=== PATIENT | female | born 1955 | race Two or more races ===

== ENCOUNTER 2020-01-02 07:37 | Outpatient (REF) | payer OTHER, SELFPAY ==
[2020-01-02 09:16] LABS: MANUAL DIFF FLAG NO
[2020-01-02 09:30] LABS: Estimated Average Glucose 91 mg/dL; Hemoglobin A1c % 4.8 %
[2020-01-02 09:35] LABS: Basophils Percent Auto 0.7 % (0-2); Eosinophils Absolute Auto 0.1 X10*3/uL (0.0-0.4); Eosinophils Percent Auto 1.5 % (0-4); Hematocrit 39.5 % (37-47); Hemoglobin 13.5 g/dl (12.0-16.0); Imm Gran Abs Auto 0.01 X10*3/uL (0.00-0.03); Imm Gran Pct Auto 0.2 % (0.0-0.4); Lymphocytes Absolute Auto 1.7 X10*3/uL (1.2-4.9); Lymphocytes Percent Auto 41.1 % (20-40); Mean Corpuscular HGB Conc 34.2 g/dl (31.0-35.0); Mean Corpuscular Hemoglobin 30.2 pg (27.0-33.0); Mean Corpuscular Volume 88.4 fL (80-98); Mean Platelet Volume 10.5 fL (9.4-12.3); Monocytes Absolute Auto 0.4 X10*3/uL (0.1-1.2); Monocytes Percent Auto 8.8 % (2-11); Neutrophils Percent Auto 47.7 % (45-73); Platelet Count 269 X10*3/uL (160-400); Red Blood Count 4.47 X10*6/uL (4.20-5.50); Red Cell Distribution Width 11.9 % (11.0-16.0); White Blood Count 4.1 X10*3/uL (4.8-10.8)
[2020-01-02 09:38] LABS: Alanine Aminotransferase 15 U/L (0-31); Albumin Level 4.3 g/dL (3.5-5.0); Alkaline Phosphatase 113 U/L (39-117); Anion Gap 13 (12-20); Aspartate Amino Transferase 15 U/L (5-31); Bilirubin Total 0.5 mg/dL (0.0-1.0); Blood Urea Nitrogen 12 mg/dL (9-16); Calcium 9.3 mg/dL (8.4-10.2); Carbon Dioxide 29 mmol/L (22-29); Chloride 100 mmol/L (96-108); Cholesterol 166 mg/dL; Estimated Glomerular Filt Rate > 60; Glucose Fasting 107 mg/dL (60-99); HDL Cholesterol 57 mg/dL; LDL Cholesterol Calculated 72 mg/dl; Magnesium 1.9 mg/dL (1.6-2.6); Potassium 4.5 mmol/l (3.3-5.1); Sodium 137 mmol/L (135-145); Total Protein 7.2 g/dL (6.5-8.0); Triglycerides 187 mg/dL
[2020-01-02 09:43] LABS: Glucose Urine UA NEG (NEG); Leukocyte Esterase Urine TRACE (NEG); Nitrite Urine NEG (NEG); PH 6.5 (5.0-8.0); Urine Blood NEG (NEG); Urine Ketones NEG (NEG); Urine Protein NEG (NEG-TRACE)
[2020-01-02 09:47] LABS: Appearance Urine HAZY; Color Urine YELLOW
[2020-01-02 09:48] LABS: TSH reflex Free T4 1.97 mIU/mL (0.32-4.0)
[2020-01-02 10:49] LABS: Bacteria Urine 1+ /LPF; RBC Urine 0 /HPF (0); Squamous Epithelial Cell Urine 2+ /LPF; WBC Urine 0-2 /HPF (0-4)
== END 2020-01-02 07:38 | disposition home or self-care (01) ==
LOC: HO.LAB 07:37
PROVIDERS: Visit Provider Internal Medicine
DX: E78.5 Hyperlipidemia, unspecified (principal); I10 Essential (primary) hypertension; R73.01 Impaired fasting glucose; E87.6 Hypokalemia; E83.42 Hypomagnesemia; K29.70 Gastritis, unspecified, without bleeding; R25.2 Cramp and spasm; E66.9 Obesity, unspecified
CPT/HCPCS: 36415; 80053; 80061; 81001; 83036; 83735; 84443; 85025; 87086

== ENCOUNTER 2020-01-18 13:09 | Outpatient (REF) | payer OTHER, SELFPAY ==
--- NOTE | 2020-01-18 13:13 | MM_ITS ---
EXAMINATION: MM SCREENING DIGITAL BREAST TOMOSYNTHESIS, BILATERAL CLINICAL INFORMATION: Screening. Asymptomatic. The lifetime risk of breast cancer based on the Tyrer-Cuzick Model is 4%. COMPARISON: Mammography: 01/22/2019, 01/12/2019, 01/09/2018, 12/15/2016 TECHNIQUE: Digital breast tomosynthesis is performed in both the craniocaudal and mediolateral oblique views along with computer-aided detection (CAD). Synthesized 2D images are generated from the tomosynthesis. FINDINGS: There are scattered areas of fibroglandular density (ACR BI-RADS breast composition Category b). There are no significant masses, abnormal calcifications, or other abnormalities. No developing density. Parenchymal pattern is similar to prior studies. The axilla and skin contours are unremarkable. MM/MM tomosynthesis screening BI IMPRESSION: No mammographic evidence of malignancy. ASSESSMENT: BI-RADS 1: Negative RECOMMENDATION: Routine annual mammography screening. This patient's information was entered into a reminder system with a target due date for their next mammogram.
== END 2020-01-18 13:10 | disposition home or self-care (01) ==
LOC: HO.MAMMO 13:09
PROVIDERS: PCP Internal Medicine; Visit Provider Internal Medicine
DX: Z12.31 Encounter for screening mammogram for malignant neoplasm of breast (principal)
CPT/HCPCS: 77063; 77067

== ENCOUNTER 2020-04-01 08:28 | Outpatient (REF) | payer OTHER, SELFPAY ==
[2020-04-01 09:18] LABS: MANUAL DIFF FLAG NO
[2020-04-01 09:25] LABS: Glucose Urine UA NEG (NEG); Leukocyte Esterase Urine NEG (NEG); Nitrite Urine NEG (NEG); Urine Blood NEG (NEG); Urine Ketones NEG (NEG); Urine Protein NEG (NEG-TRACE)
[2020-04-01 09:26] LABS: Appearance Urine CLEAR; Basophils Absolute Auto 0.1 X10*3/uL (0.0-0.2); Basophils Percent Auto 1.1 % (0-2); Color Urine YELLOW; Eosinophils Absolute Auto 0.1 X10*3/uL (0.0-0.4); Eosinophils Percent Auto 2.1 % (0-4); Hematocrit 40.3 % (37-47); Hemoglobin 13.8 g/dl (12.0-16.0); Imm Gran Abs Auto 0.01 X10*3/uL (0.00-0.03); Imm Gran Pct Auto 0.2 % (0.0-0.4); Lymphocytes Absolute Auto 1.7 X10*3/uL (1.2-4.9); Lymphocytes Percent Auto 37.3 % (20-40); Mean Corpuscular HGB Conc 34.2 g/dl (31.0-35.0); Mean Corpuscular Volume 87.6 fL (80-98); Mean Platelet Volume 10.4 fL (9.4-12.3); Monocytes Absolute Auto 0.4 X10*3/uL (0.1-1.2); Monocytes Percent Auto 9.4 % (2-11); Neutrophils Absolute Auto 2.3 X10*3/uL (2.0-8.3); Neutrophils Percent Auto 49.9 % (45-73); Platelet Count 267 X10*3/uL (160-400); Red Cell Distribution Width 11.9 % (11.0-16.0); White Blood Count 4.7 X10*3/uL (4.8-10.8)
[2020-04-01 10:02] LABS: Alanine Aminotransferase 13 U/L (0-31); Albumin Level 4.5 g/dL (3.5-5.0); Alkaline Phosphatase 122 U/L (39-117); Anion Gap 14 (12-20); Aspartate Amino Transferase 16 U/L (5-31); Bilirubin Total 0.7 mg/dL (0.0-1.0); Blood Urea Nitrogen 25 mg/dL (9-16); Calcium 9.6 mg/dL (8.4-10.2); Carbon Dioxide 27 mmol/L (22-29); Chloride 101 mmol/L (96-108); Cholesterol 169 mg/dL; Estimated Glomerular Filt Rate > 60; Glucose Fasting 108 mg/dL (60-99); HDL Cholesterol 65 mg/dL; LDL Cholesterol Calculated 83 mg/dl; Magnesium 1.7 mg/dL (1.6-2.6); Potassium 4.3 mmol/L (3.3-5.1); Sodium 138 mmol/L (135-145); Total Protein 7.5 g/dL (6.5-8.0); Triglycerides 108 mg/dL
[2020-04-01 10:25] LABS: Vitamin D 25-OH Total 31.8 ng/mL (>30)
== END 2020-04-01 08:29 | disposition home or self-care (01) ==
LOC: HO.LAB 08:28
PROVIDERS: PCP Internal Medicine; Visit Provider Internal Medicine
DX: Z00.00 Encounter for general adult medical examination without abnormal findings (principal); I10 Essential (primary) hypertension; K29.70 Gastritis, unspecified, without bleeding; E78.00 Pure hypercholesterolemia, unspecified; R73.01 Impaired fasting glucose; E87.6 Hypokalemia; E83.42 Hypomagnesemia; E66.9 Obesity, unspecified; E55.9 Vitamin D deficiency, unspecified
CPT/HCPCS: 36415; 80053; 80061; 81003; 82306; 83735; 84443; 85025

== ENCOUNTER 2020-07-08 08:51 | Outpatient (REF) | payer OTHER, SELFPAY ==
[2020-07-08 09:19] LABS: MANUAL DIFF FLAG NO
[2020-07-08 09:22] LABS: Basophils Absolute Auto 0.1 X10*3/uL (0.0-0.2); Basophils Percent Auto 0.9 % (0-2); Eosinophils Absolute Auto 0.1 X10*3/uL (0.0-0.4); Eosinophils Percent Auto 2.1 % (0-4); Hematocrit 40.2 % (37-47); Hemoglobin 13.3 g/dl (12.0-16.0); Imm Gran Abs Auto 0.02 X10*3/uL (0.00-0.03); Imm Gran Pct Auto 0.4 % (0.0-0.4); Lymphocytes Absolute Auto 1.8 X10*3/uL (1.2-4.9); Lymphocytes Percent Auto 33.6 % (20-40); Mean Corpuscular HGB Conc 33.1 g/dl (31.0-35.0); Mean Corpuscular Volume 90.5 fL (80-98); Mean Platelet Volume 9.9 fL (9.4-12.3); Monocytes Absolute Auto 0.4 X10*3/uL (0.1-1.2); Monocytes Percent Auto 6.9 % (2-11); Neutrophils Percent Auto 56.1 % (45-73); Platelet Count 256 X10*3/uL (160-400); Red Blood Count 4.44 X10*6/uL (4.20-5.50); Red Cell Distribution Width 12.2 % (11.0-16.0); White Blood Count 5.4 X10*3/uL (4.8-10.8)
[2020-07-08 09:45] LABS: Alanine Aminotransferase 15 U/L (0-31); Albumin Level 4.4 g/dL (3.5-5.0); Alkaline Phosphatase 112 U/L (39-117); Anion Gap 13 (12-20); Aspartate Amino Transferase 17 U/L (5-31); Bilirubin Total 0.6 mg/dL (0.0-1.0); Blood Urea Nitrogen 17 mg/dL (9-16); Carbon Dioxide 28 mmol/L (22-29); Chloride 104 mmol/L (96-108); Cholesterol 156 mg/dL; Estimated Glomerular Filt Rate > 60; Glucose Fasting 112 mg/dL (60-99); HDL Cholesterol 70 mg/dL; LDL Cholesterol Calculated 64 mg/dl; Potassium 4.6 mmol/L (3.3-5.1); Sodium 140 mmol/L (135-145); Total Protein 7.2 g/dL (6.5-8.0); Triglycerides 113 mg/dL
[2020-07-08 10:05] LABS: TSH reflex Free T4 1.63 uIU/mL (0.32-4.0)
[2020-07-08 10:45] LABS: Glucose Urine UA NEG (NEG); Leukocyte Esterase Urine NEG (NEG); Nitrite Urine NEG (NEG); Urine Blood NEG (NEG); Urine Ketones NEG (NEG); Urine Protein NEG (NEG-TRACE)
[2020-07-08 10:47] LABS: Appearance Urine CLEAR; Color Urine YELLOW
== END 2020-07-08 08:52 | disposition home or self-care (01) ==
LOC: HO.LAB 08:51
PROVIDERS: PCP Internal Medicine; Visit Provider Internal Medicine
DX: K29.70 Gastritis, unspecified, without bleeding (principal); I10 Essential (primary) hypertension; E78.00 Pure hypercholesterolemia, unspecified; E87.6 Hypokalemia; R73.01 Impaired fasting glucose; E66.9 Obesity, unspecified
CPT/HCPCS: 36415; 80053; 80061; 81003; 84443; 85025

== ENCOUNTER 2020-10-02 08:13 | Outpatient (REF) | payer OTHER, SELFPAY ==
[2020-10-02 09:24] LABS: Estimated Average Glucose 91 mg/dL; Hemoglobin A1c % 4.8 %
[2020-10-02 09:41] LABS: Cholesterol 177 mg/dL; HDL Cholesterol 66 mg/dL; LDL Cholesterol Calculated 79 mg/dl; Triglycerides 161 mg/dL
== END 2020-10-02 08:14 | disposition home or self-care (01) ==
LOC: HO.LAB 08:13
PROVIDERS: PCP Internal Medicine; Visit Provider Internal Medicine
DX: R73.01 Impaired fasting glucose (principal); E78.00 Pure hypercholesterolemia, unspecified
CPT/HCPCS: 36415; 80061; 83036

== ENCOUNTER 2021-01-24 08:54 | Outpatient (REF) | payer OTHER, SELFPAY ==
[2021-01-24 09:30] LABS: MANUAL DIFF FLAG NO
[2021-01-24 11:05] LABS: Basophils Percent Auto 0.6 % (0-2); Eosinophils Absolute Auto 0.1 X10*3/uL (0.0-0.4); Eosinophils Percent Auto 1.7 % (0-4); Hematocrit 39.4 % (37.0-47.0); Imm Gran Abs Auto 0.02 X10*3/uL (0.00-0.03); Imm Gran Pct Auto 0.4 % (0.0-0.4); Lymphocytes Absolute Auto 1.9 X10*3/uL (1.2-4.9); Lymphocytes Percent Auto 36.5 % (20-40); Mean Corpuscular Hemoglobin 29.5 pg (27.0-33.0); Mean Corpuscular Volume 89.3 fL (80.0-98.0); Mean Platelet Volume 10.8 fL (9.4-12.3); Monocytes Absolute Auto 0.5 X10*3/uL (0.1-1.2); Monocytes Percent Auto 9.1 % (2-11); Neutrophils Absolute Auto 2.7 x10*3/uL (2.0-8.3); Neutrophils Percent Auto 51.7 % (45-73); Platelet Count 259 X10*3/uL (160-400); Red Blood Count 4.41 X10*6/uL (4.20-5.50); Red Cell Distribution Width 12.4 % (11.0-16.0); White Blood Count 5.2 X10*3/uL (4.8-10.8)
[2021-01-24 11:17] LABS: Appearance Urine CLEAR; Color Urine YELLOW; Glucose Urine UA NEG (NEG); Leukocyte Esterase Urine NEG (NEG); Nitrite Urine NEG (NEG); Urine Blood NEG (NEG); Urine Ketones NEG (NEG); Urine Protein NEG (NEG-TRACE)
[2021-01-24 11:22] LABS: Estimated Average Glucose 97 mg/dL
[2021-01-24 11:35] LABS: TSH reflex Free T4 2.12 uIU/mL (0.32-4.0); Vitamin D 25-OH Total 29.9 ng/mL (>30)
[2021-01-24 11:46] LABS: Alanine Aminotransferase 18 U/L (0-31); Albumin Level 4.3 g/dL (3.5-5.0); Alkaline Phosphatase 115 U/L (39-117); Anion Gap 14 (12-20); Aspartate Amino Transferase 17 U/L (5-31); Bilirubin Total 0.6 mg/dL (0.0-1.0); Blood Urea Nitrogen 17 mg/dL (9-16); C Reactive Protein 0.16 mg/dL (< or = 0.50); Calcium 9.9 mg/dL (8.4-10.2); Carbon Dioxide 28 mmol/L (22-29); Chloride 102 mmol/L (96-108); Cholesterol 163 mg/dL; Erythrocyte Sedimentation Rate 7 MM/HR (0-20); Estimated Glomerular Filt Rate > 60; Glucose Fasting 106 mg/dL (60-99); HDL Cholesterol 57 mg/dL; LDL Cholesterol Calculated 81 mg/dl; Magnesium 1.4 mg/dL (1.6-2.6); Potassium 4.6 mmol/L (3.3-5.1); Sodium 139 mmol/L (135-145); Total Protein 7.3 g/dL (6.5-8.0); Triglycerides 129 mg/dL
== END 2021-01-24 08:55 | disposition home or self-care (01) ==
LOC: HO.LAB 08:54
PROVIDERS: PCP Internal Medicine; Visit Provider Internal Medicine
DX: E78.00 Pure hypercholesterolemia, unspecified (principal); E55.9 Vitamin D deficiency, unspecified; I10 Essential (primary) hypertension; E83.42 Hypomagnesemia; R73.01 Impaired fasting glucose; M79.7 Fibromyalgia; M25.50 Pain in unspecified joint
CPT/HCPCS: 36415; 80053; 80061; 81003; 82306; 83036; 83735; 84443; 85025; 85652; 86140

== ENCOUNTER 2021-02-17 14:14 | Outpatient (REF) | payer OTHER, SELFPAY ==
--- NOTE | ~2021-02-17 | MM_ITS ---
EXAMINATION: MM SCREENING DIGITAL BREAST TOMOSYNTHESIS, BILATERAL CLINICAL INFORMATION: Screening. Asymptomatic. The lifetime risk of breast cancer based on the Tyrer-Cuzick Model is 3%. COMPARISON: Mammography: 01/18/2020, 01/22/2019, 01/12/2019, 01/09/2018, 11/27/2015 11/13/2014 TECHNIQUE: Digital breast tomosynthesis is performed in both the craniocaudal and mediolateral oblique views along with computer-aided detection (CAD). Synthesized 2D images are generated from the tomosynthesis. FINDINGS: There are scattered areas of fibroglandular density (ACR BI-RADS breast composition Category b). There are no significant masses, abnormal calcifications, or other abnormalities. No significant change from prior exams. MM/MM tomosynthesis screening BI IMPRESSION: No mammographic evidence of malignancy. ASSESSMENT: BI-RADS 1: Negative RECOMMENDATION: Routine annual mammography screening. This patient's information was entered into a reminder system with a target due date for their next mammogram.
== END 2021-02-17 14:15 | disposition home or self-care (01) ==
LOC: HO.MAMMO 14:14
PROVIDERS: Visit Provider Internal Medicine
DX: Z12.31 Encounter for screening mammogram for malignant neoplasm of breast (principal)
CPT/HCPCS: 77063; 77067

== ENCOUNTER 2021-05-02 09:19 | Outpatient (REF) | payer OTHER, SELFPAY ==
[2021-05-02 09:32] LABS: MANUAL DIFF FLAG NO
[2021-05-02 10:27] LABS: Basophils Percent Auto 0.9 % (0-2); Eosinophils Absolute Auto 0.1 X10*3/uL (0.0-0.4); Eosinophils Percent Auto 1.4 % (0-4); Hematocrit 40.4 % (37.0-47.0); Hemoglobin 13.4 g/dl (12.0-16.0); Imm Gran Abs Auto 0.02 X10*3/uL (0.00-0.03); Imm Gran Pct Auto 0.5 % (0.0-0.4); Lymphocytes Absolute Auto 1.6 X10*3/uL (1.2-4.9); Lymphocytes Percent Auto 35.8 % (20-40); Mean Corpuscular HGB Conc 33.2 g/dl (31.0-35.0); Mean Corpuscular Hemoglobin 29.7 pg (27.0-33.0); Mean Corpuscular Volume 89.6 fL (80.0-98.0); Mean Platelet Volume 10.4 fL (9.4-12.3); Monocytes Absolute Auto 0.4 X10*3/uL (0.1-1.2); Monocytes Percent Auto 9.8 % (2-11); Neutrophils Absolute Auto 2.3 x10*3/uL (2.0-8.3); Neutrophils Percent Auto 51.6 % (45-73); Platelet Count 233 X10*3/uL (160-400); Red Blood Count 4.51 X10*6/uL (4.20-5.50); Red Cell Distribution Width 12.4 % (11.0-16.0); White Blood Count 4.4 X10*3/uL (4.8-10.8)
[2021-05-02 10:28] LABS: Appearance Urine HAZY; Color Urine YELLOW; Glucose Urine UA NEG (NEG); Leukocyte Esterase Urine TRACE (NEG); Nitrite Urine NEG (NEG); PH 7.5 (5.0-8.0); Specific Gravity - Urine 1.015 (1.005-1.025); UACC Culture Trigger YES; Urine Blood NEG (NEG); Urine Ketones NEG (NEG); Urine Protein TRACE MG/DL (NEG-TRACE)
[2021-05-02 10:33] LABS: Bacteria Urine 2+ /LPF; Mucus Urine 2+ /LPF; RBC Urine 0-2 /HPF (0); Squamous Epithelial Cell Urine 2+ /LPF
[2021-05-02 10:38] LABS: Estimated Average Glucose 100 mg/dL; Hemoglobin A1c % 5.1 %
[2021-05-02 10:47] LABS: Alanine Aminotransferase 24 U/L (0-31); Albumin Level 4.4 g/dL (3.5-5.0); Alkaline Phosphatase 116 U/L (39-117); Anion Gap 17 (12-20); Aspartate Amino Transferase 19 U/L (5-31); Blood Urea Nitrogen 12 mg/dL (9-16); Carbon Dioxide 25 mmol/L (22-29); Chloride 102 mmol/L (96-108); Cholesterol 166 mg/dL; Estimated Glomerular Filt Rate 59; Glucose Fasting 106 mg/dL (60-99); HDL Cholesterol 64 mg/dL; LDL Cholesterol Calculated 84 mg/dl; Magnesium 2.1 mg/dL (1.6-2.6); Potassium 4.1 mmol/L (3.3-5.1); Sodium 140 mmol/L (135-145); Total Protein 7.5 g/dL (6.5-8.0); Triglycerides 93 mg/dL
[2021-05-02 10:52] LABS: TSH reflex Free T4 2.07 uIU/mL (0.32-4.0); Vitamin D 25-OH Total 31.8 ng/mL (>30)
== END 2021-05-02 09:20 | disposition home or self-care (01) ==
LOC: HO.LAB 09:19
PROVIDERS: PCP Internal Medicine; Visit Provider Internal Medicine
DX: K29.70 Gastritis, unspecified, without bleeding (principal); I10 Essential (primary) hypertension; E78.00 Pure hypercholesterolemia, unspecified; R73.01 Impaired fasting glucose; E83.42 Hypomagnesemia; E55.9 Vitamin D deficiency, unspecified
CPT/HCPCS: 36415; 80053; 80061; 81001; 82306; 83036; 83735; 84443; 85025; 87086

== ENCOUNTER 2021-05-11 12:11 | Outpatient (REF) | payer OTHER, SELFPAY ==
--- NOTE | ~2021-05-11 | XR_ITS ---
EXAMINATION: XR KNEE, RIGHT XR KNEE LEFT XR KNEE STANDING, BILATERAL CLINICAL INFORMATION: Pain. COMPARISON: Previous x-ray from April and January 2019 TECHNIQUE: 3 views of each knee. FINDINGS: RIGHT: Bone alignment is normal. No fracture or dislocation is seen. There are osteophytes at the patellofemoral and femorotibial joints. There is an osteophyte at the quadriceps tendon insertion to the patella. There is no significant joint effusion. LEFT: Bone alignment is normal. No fracture or dislocation is seen. There is arthritis at the medial femorotibial and patellofemoral joints with small osteophytes. There is an osteophyte at the quadriceps tendon insertion to the patella. There is no significant joint effusion. XR/XR knee RT 2V IMPRESSION: Degenerative changes.
--- NOTE | ~2021-05-11 | XR_ITS ---
EXAMINATION: XR KNEE, RIGHT XR KNEE LEFT XR KNEE STANDING, BILATERAL CLINICAL INFORMATION: Pain. COMPARISON: Previous x-ray from April and January 2019 TECHNIQUE: 3 views of each knee. FINDINGS: RIGHT: Bone alignment is normal. No fracture or dislocation is seen. There are osteophytes at the patellofemoral and femorotibial joints. There is an osteophyte at the quadriceps tendon insertion to the patella. There is no significant joint effusion. LEFT: Bone alignment is normal. No fracture or dislocation is seen. There is arthritis at the medial femorotibial and patellofemoral joints with small osteophytes. There is an osteophyte at the quadriceps tendon insertion to the patella. There is no significant joint effusion. XR/XR knee LT 2V IMPRESSION: Degenerative changes.
--- NOTE | ~2021-05-11 | XR_ITS ---
EXAMINATION: XR KNEE, RIGHT XR KNEE LEFT XR KNEE STANDING, BILATERAL CLINICAL INFORMATION: Pain. COMPARISON: Previous x-ray from April and January 2019 TECHNIQUE: 3 views of each knee. FINDINGS: RIGHT: Bone alignment is normal. No fracture or dislocation is seen. There are osteophytes at the patellofemoral and femorotibial joints. There is an osteophyte at the quadriceps tendon insertion to the patella. There is no significant joint effusion. LEFT: Bone alignment is normal. No fracture or dislocation is seen. There is arthritis at the medial femorotibial and patellofemoral joints with small osteophytes. There is an osteophyte at the quadriceps tendon insertion to the patella. There is no significant joint effusion. XR/XR knee standing BI IMPRESSION: Degenerative changes.
== END 2021-05-11 12:12 | disposition home or self-care (01) ==
LOC: HO.HOSX 12:11
PROVIDERS: Visit Provider Orthopaedic Surgery
DX: M17.0 Bilateral primary osteoarthritis of knee (principal)
CPT/HCPCS: 20610; 73560; 73565; 99212; J1100

== ENCOUNTER 2021-08-12 09:04 | Outpatient (REF) | payer OTHER, SELFPAY ==
[2021-08-12 09:20] LABS: MANUAL DIFF FLAG NO
[2021-08-12 10:09] LABS: Basophils Percent Auto 0.7 % (0-2); Eosinophils Absolute Auto 0.1 X10*3/uL (0.0-0.4); Eosinophils Percent Auto 1.8 % (0-4); Hematocrit 39.8 % (37.0-47.0); Imm Gran Abs Auto 0.01 X10*3/uL (0.00-0.03); Imm Gran Pct Auto 0.2 % (0.0-0.4); Lymphocytes Absolute Auto 1.6 X10*3/uL (1.2-4.9); Lymphocytes Percent Auto 35.7 % (20-40); Mean Corpuscular HGB Conc 32.7 g/dl (31.0-35.0); Mean Corpuscular Hemoglobin 29.3 pg (27.0-33.0); Mean Corpuscular Volume 89.8 fL (80.0-98.0); Mean Platelet Volume 10.5 fL (9.4-12.3); Monocytes Absolute Auto 0.4 X10*3/uL (0.1-1.2); Neutrophils Absolute Auto 2.4 x10*3/uL (2.0-8.3); Neutrophils Percent Auto 53.6 % (45-73); Platelet Count 235 X10*3/uL (160-400); Red Blood Count 4.43 X10*6/uL (4.20-5.50); Red Cell Distribution Width 12.5 % (11.0-16.0); White Blood Count 4.5 X10*3/uL (4.8-10.8)
[2021-08-12 10:33] LABS: Alanine Aminotransferase 26 U/L (0-31); Albumin Level 4.3 g/dL (3.5-5.0); Alkaline Phosphatase 129 U/L (39-117); Anion Gap 13 (12-20); Aspartate Amino Transferase 25 U/L (5-31); Bilirubin Total 0.8 mg/dL (0.0-1.0); Blood Urea Nitrogen 15 mg/dL (9-16); Calcium 9.5 mg/dL (8.4-10.2); Carbon Dioxide 27 mmol/L (22-29); Chloride 104 mmol/L (96-108); Cholesterol 218 mg/dL; Estimated Glomerular Filt Rate > 60; Glucose Fasting 116 mg/dL (60-99); HDL Cholesterol 58 mg/dL; LDL Cholesterol Calculated 128 mg/dl; Magnesium 1.9 mg/dL (1.6-2.6); Potassium 4.7 mmol/L (3.3-5.1); Sodium 139 mmol/L (135-145); Total Protein 7.2 g/dL (6.5-8.0); Triglycerides 164 mg/dL
[2021-08-12 10:42] LABS: Appearance Urine CLEAR; Color Urine YELLOW; Glucose Urine UA NEG (NEG); Leukocyte Esterase Urine 1+ (NEG); Nitrite Urine NEG (NEG); PH 6.5 (5.0-8.0); UACC Culture Trigger YES; Urine Blood NEG (NEG); Urine Ketones NEG (NEG); Urine Protein TRACE MG/DL (NEG-TRACE)
[2021-08-12 10:56] LABS: TSH reflex Free T4 1.75 uIU/mL (0.32-4.0); Vitamin D 25-OH Total 29.2 ng/mL (>30)
[2021-08-12 11:04] LABS: Bacteria Urine TRACE /LPF; RBC Urine 0 /HPF (0); Squamous Epithelial Cell Urine 4+ /LPF
[2021-08-12 11:18] LABS: Folate 14.2 ng/mL (> or = 4.0); Vitamin B12 325 pg/mL (200-900)
== END 2021-08-12 09:05 | disposition home or self-care (01) ==
LOC: HO.LAB 09:04
PROVIDERS: PCP Internal Medicine; Visit Provider Internal Medicine
DX: I10 Essential (primary) hypertension (principal); E53.8 Deficiency of other specified B group vitamins; E55.9 Vitamin D deficiency, unspecified; E83.42 Hypomagnesemia; E78.00 Pure hypercholesterolemia, unspecified
CPT/HCPCS: 36415; 80053; 80061; 81001; 82306; 82607; 82746; 83735; 84443; 85025; 87086

== ENCOUNTER → 2021-08-20 12:17 | Outpatient (BNVA) | payer OTHER, SELFPAY | PROVIDERS: PCP Internal Medicine; Visit Provider Orthopaedic Surgery | DX: M17.0 Bilateral primary osteoarthritis of knee (principal) | CPT/HCPCS: 20610; 99212; J1100 ==

== ENCOUNTER 2021-11-10 08:47 | Outpatient (REF) | payer OTHER, SELFPAY ==
[2021-11-10 09:40] LABS: Estimated Average Glucose 100 mg/dL; Hemoglobin A1c % 5.1 %
[2021-11-10 09:44] LABS: Alanine Aminotransferase 22 U/L (0-31); Albumin Level 4.5 g/dL (3.5-5.0); Alkaline Phosphatase 130 U/L (39-117); Anion Gap 17 (12-20); Aspartate Amino Transferase 19 U/L (5-31); Bilirubin Total 0.7 mg/dL (0.0-1.0); Blood Urea Nitrogen 14 mg/dL (9-16); Calcium 9.8 mg/dL (8.4-10.2); Carbon Dioxide 24 mmol/L (22-29); Chloride 101 mmol/L (96-108); Cholesterol 151 mg/dL; Estimated Glomerular Filt Rate 56; Glucose Fasting 123 mg/dL (60-99); HDL Cholesterol 55 mg/dL; LDL Cholesterol Calculated 67 mg/dl; Potassium 4.2 mmol/L (3.3-5.1); Sodium 138 mmol/L (135-145); Total Protein 7.4 g/dL (6.5-8.0); Triglycerides 146 mg/dL
[2021-11-10 10:09] LABS: Vitamin D 25-OH Total 35.3 ng/mL (>30)
== END 2021-11-10 08:48 | disposition home or self-care (01) ==
LOC: HO.LAB 08:47
PROVIDERS: PCP Internal Medicine; Visit Provider Internal Medicine
DX: E11.9 Type 2 diabetes mellitus without complications (principal); E55.9 Vitamin D deficiency, unspecified; E78.00 Pure hypercholesterolemia, unspecified
CPT/HCPCS: 36415; 80053; 80061; 82306; 83036; 84443

== ENCOUNTER → 2021-12-14 14:04 | Outpatient (BNVA) | payer OTHER, SELFPAY | PROVIDERS: PCP Internal Medicine; Visit Provider Orthopaedic Surgery | DX: M17.0 Bilateral primary osteoarthritis of knee (principal) | CPT/HCPCS: 99212 ==

== ENCOUNTER 2022-03-02 15:02 | Outpatient (REF) | payer OTHER, SELFPAY ==
--- NOTE | ~2022-03-02 | MM_ITS ---
EXAMINATION: MM SCREENING DIGITAL BREAST TOMOSYNTHESIS, BILATERAL CLINICAL INFORMATION: Screening. Asymptomatic. The lifetime risk of breast cancer based on the Tyrer-Cuzick Model is 4.2%. COMPARISON: Mammography: February 17, 2021 and studies dating back to November 27, 2015 TECHNIQUE: Digital breast tomosynthesis is performed in both the craniocaudal and mediolateral oblique views along with computer-aided detection (CAD). Synthesized 2D images are generated from the tomosynthesis. FINDINGS: There are scattered areas of fibroglandular density (ACR BI-RADS breast composition Category b). There are no significant masses, abnormal calcifications, or other abnormalities. MM/MM tomosynthesis screening BI IMPRESSION: No significant changes from prior exam. ASSESSMENT: BI-RADS 1: Negative RECOMMENDATION: Routine annual mammography screening. This patient's information was entered into a reminder system with a target due date for their next mammogram.
== END 2022-03-02 15:03 | disposition home or self-care (01) ==
LOC: HO.MAMMO 15:02
PROVIDERS: PCP Internal Medicine; Visit Provider Internal Medicine
DX: Z12.31 Encounter for screening mammogram for malignant neoplasm of breast (principal)
CPT/HCPCS: 77063; 77067

== ENCOUNTER 2022-03-10 08:30 | Outpatient (REF) | payer OTHER, SELFPAY ==
[2022-03-10 08:47] LABS: MANUAL DIFF FLAG NO
[2022-03-10 09:18] LABS: Basophils Absolute Auto 0.1 X10*3/uL (0.0-0.2); Basophils Percent Auto 0.9 % (0-2); Eosinophils Absolute Auto 0.1 X10*3/uL (0.0-0.4); Eosinophils Percent Auto 1.7 % (0-4); Hematocrit 41.7 % (37.0-47.0); Hemoglobin 13.9 g/dl (12.0-16.0); Imm Gran Abs Auto 0.01 X10*3/uL (0.00-0.03); Imm Gran Pct Auto 0.2 % (0.0-0.4); Lymphocytes Absolute Auto 1.9 X10*3/uL (1.2-4.9); Lymphocytes Percent Auto 34.8 % (20-40); Mean Corpuscular HGB Conc 33.3 g/dl (31.0-35.0); Mean Corpuscular Hemoglobin 29.6 pg (27.0-33.0); Mean Corpuscular Volume 88.7 fL (80.0-98.0); Mean Platelet Volume 10.7 fL (9.4-12.3); Monocytes Absolute Auto 0.5 X10*3/uL (0.1-1.2); Monocytes Percent Auto 9.2 % (2-11); Neutrophils Absolute Auto 2.8 x10*3/uL (2.0-8.3); Neutrophils Percent Auto 53.2 % (45-73); Platelet Count 252 X10*3/uL (160-400); Red Cell Distribution Width 12.7 % (11.0-16.0); White Blood Count 5.3 X10*3/uL (4.8-10.8)
[2022-03-10 09:32] LABS: Estimated Average Glucose 91 mg/dL; Hemoglobin A1c % 4.8 %
[2022-03-10 09:38] LABS: Appearance Urine Clear; Color Urine Yellow; Glucose Urine UA Negative (Negative); Leukocyte Esterase Urine Moderate (2+) (Negative); Nitrite Urine Negative (Negative); PH 5.5 (5.0-9.0); UMIC TRIGGER UACC YES; Urine Blood Negative (Negative); Urine Ketones Negative (Negative); Urine Protein Negative (Neg-Trace)
[2022-03-10 09:47] LABS: Bacteria Urine 1+ (None Seen); Hyaline Casts Urine 0-2 /LPF (0-2); RBC Urine 0-2 /HPF (0-2); WBC Urine 0-5 /HPF (0-5)
[2022-03-10 09:48] LABS: Alanine Aminotransferase 19 U/L (0-31); Albumin Level 4.5 g/dL (3.5-5.0); Alkaline Phosphatase 138 U/L (39-117); Anion Gap 17 (12-20); Aspartate Amino Transferase 21 U/L (5-31); Blood Urea Nitrogen 13 mg/dL (9-16); Calcium 9.9 mg/dL (8.4-10.2); Carbon Dioxide 25 mmol/L (22-29); Chloride 103 mmol/L (96-108); Cholesterol 173 mg/dL; Estimated Glomerular Filt Rate 55; Glucose Fasting 115 mg/dL (60-99); HDL Cholesterol 63 mg/dL; LDL Cholesterol Calculated 93 mg/dl; Magnesium 1.8 mg/dL (1.6-2.6); Potassium 4.3 mmol/L (3.3-5.1); Sodium 141 mmol/L (135-145); Total Protein 7.5 g/dL (6.5-8.0); Triglycerides 88 mg/dL
[2022-03-10 10:07] LABS: TSH reflex Free T4 1.93 uIU/mL (0.32-4.0); Vitamin D 25-OH Total 26.2 ng/mL (>30)
== END 2022-03-10 08:31 | disposition home or self-care (01) ==
LOC: HO.LAB 08:30
PROVIDERS: Visit Provider Internal Medicine
DX: I10 Essential (primary) hypertension (principal); E11.9 Type 2 diabetes mellitus without complications; E78.00 Pure hypercholesterolemia, unspecified; E83.42 Hypomagnesemia
CPT/HCPCS: 36415; 80053; 80061; 81001; 82306; 83036; 83735; 84443; 85025

== ENCOUNTER 2022-07-31 08:18 | Outpatient (REF) | payer OTHER, SELFPAY ==
[2022-07-31 08:53] LABS: MANUAL DIFF FLAG NO
[2022-07-31 09:33] LABS: Basophils Absolute Auto 0.1 X10*3/uL (0.0-0.2); Basophils Percent Auto 0.9 % (0-2); Eosinophils Absolute Auto 0.1 X10*3/uL (0.0-0.4); Eosinophils Percent Auto 2.1 % (0-4); Hematocrit 40.9 % (37.0-47.0); Hemoglobin 13.8 g/dl (12.0-16.0); Imm Gran Abs Auto 0.01 X10*3/uL (0.00-0.03); Imm Gran Pct Auto 0.2 % (0.0-0.4); Lymphocytes Absolute Auto 2.2 X10*3/uL (1.2-4.9); Lymphocytes Percent Auto 37.1 % (20-40); Mean Corpuscular HGB Conc 33.7 g/dl (31.0-35.0); Mean Corpuscular Hemoglobin 29.7 pg (27.0-33.0); Mean Corpuscular Volume 88.1 fL (80.0-98.0); Mean Platelet Volume 10.3 fL (9.4-12.3); Monocytes Absolute Auto 0.5 X10*3/uL (0.1-1.2); Monocytes Percent Auto 9.3 % (2-11); Neutrophils Absolute Auto 2.9 x10*3/uL (2.0-8.3); Neutrophils Percent Auto 50.4 % (45-73); Platelet Count 273 X10*3/uL (160-400); Red Blood Count 4.64 X10*6/uL (4.20-5.50); Red Cell Distribution Width 12.2 % (11.0-16.0); White Blood Count 5.8 X10*3/uL (4.8-10.8)
[2022-07-31 10:03] LABS: Appearance Urine Clear; Color Urine Yellow; Glucose Urine UA Negative (Negative); Leukocyte Esterase Urine Negative (Negative); Nitrite Urine Negative (Negative); Specific Gravity - Urine 1.025 (1.005-1.025); Urine Blood Negative (Negative); Urine Ketones Trace mg/dL (Negative); Urine Protein Negative (Neg-Trace)
[2022-07-31 10:21] LABS: Alanine Aminotransferase 16 U/L (0-31); Albumin Level 4.2 g/dL (3.5-5.0); Alkaline Phosphatase 117 U/L (39-117); Anion Gap 13 (12-20); Aspartate Amino Transferase 17 U/L (5-31); Bilirubin Total 1.1 mg/dL (0.0-1.0); Blood Urea Nitrogen 13 mg/dL (9-16); Calcium 10.1 mg/dL (8.4-10.2); Carbon Dioxide 28 mmol/L (22-29); Chloride 103 mmol/L (96-108); Cholesterol 156 mg/dL; Estimated Glomerular Filt Rate > 60; Glucose Fasting 118 mg/dL (60-99); HDL Cholesterol 59 mg/dL; LDL Cholesterol Calculated 77 mg/dl; Magnesium 1.8 mg/dL (1.6-2.6); Potassium 4.3 mmol/L (3.3-5.1); Sodium 140 mmol/L (135-145); Total Protein 7.4 g/dL (6.5-8.0); Triglycerides 104 mg/dL
[2022-07-31 10:38] LABS: TSH reflex Free T4 2.05 uIU/mL (0.32-4.0); Vitamin D 25-OH Total 48.2 ng/mL (>30)
== END 2022-07-31 08:19 | disposition home or self-care (01) ==
LOC: HO.LAB 08:18
PROVIDERS: PCP Internal Medicine; Visit Provider Internal Medicine
DX: R30.0 Dysuria (principal); E55.9 Vitamin D deficiency, unspecified; I10 Essential (primary) hypertension; E78.00 Pure hypercholesterolemia, unspecified
CPT/HCPCS: 36415; 80053; 80061; 81003; 82306; 83735; 84443; 85025

== ENCOUNTER 2022-11-11 08:37 | Outpatient (REF) | payer OTHER, SELFPAY | END 2022-11-11 08:38 | disposition home or self-care (01) | LOC: HO.LAB 08:37 | PROVIDERS: PCP Internal Medicine; Visit Provider Internal Medicine | DX: I10 Essential (primary) hypertension (principal); E87.6 Hypokalemia; R73.01 Impaired fasting glucose; E78.00 Pure hypercholesterolemia, unspecified; E83.42 Hypomagnesemia; E55.9 Vitamin D deficiency, unspecified; R30.0 Dysuria | CPT/HCPCS: 36415; 80053; 80061; 81001; 82306; 83036; 84443; 85025 ==

== ENCOUNTER 2022-12-06 10:27 | Outpatient (AMB) | payer OTHER, SELFPAY ==
[2022-12-06 10:28] VITALS: BP 118/80; PULSE 77; O2SAT 94; BMI 31.7
--- NOTE | 2022-12-06 10:28 | MHC.PC.OV ---
Vital Signs 12/06/22 10:28 Height 5 ft 1 in Weight 168 lb BMI 31.7 BP 118/80 Blood Pressure Location Lt brachial Position Sitting Pulse 77 Pulse Source Pulse Oximeter Pulse Oximetry (%) 94 Oxygen Delivery Method Room Air Intake Visit Reasons: HTN, hyperlipidemia, IFG, anxiety Nitroglycerin Supervisor Required: No Accompanied by: Self / Same As Patient Allergies nitroglycerin [NITROGLYCERIN] Allergy (Severe, Verified 12/06/22 10:55) NAUSEA, NUMBNESS IN MOUTH, burning Medication List - Last Reconciled 12/06/22 by Jatinder Amado MD atorvastatin 20 mg PO DAILY 90 days cholecalciferol (vitamin D3) 50 mcg PO DAILY 90 days fluoxetine 20 mg PO QAM hydrochlorothiazide 12.5 mg PO QAM 90 days lidocaine 5% 1 patch topical DAILY lorazepam 0.5 mg PO BID-TID PRN 30 days losartan 100 mg PO DAILY magnesium oxide 1,200 mg PO BID metoprolol tartrate 50 mg PO BID mirtazapine 7.5 mg PO BEDTIME 30 days nabumetone 500 mg PO BID PRN 30 days omeprazole 20 mg PO DAILY potassium chloride ER (Klor-Con M) 10 mEq PO DAILY tizanidine 4 mg PO TID PRN Tobacco use date assessed: 12/06/22 Fall risk assessment: No Falls in past year Last assessed Fall Risk: 12/06/22 Dental Screening Dental Screen Date: 12/06/22 Did you have a dental visit in the last 12 months?: Yes Did you have a dental problem in the last 6 months where you did not have access to dental care?: No Was dental information given to patient?: Patient has dentist HPI HTN, hyperlipidemia, IFG, anxiety HPI Details Patient comes in today for her follow up visit States that she feels okay She denies any headaches or dizziness Denies any chest pains, no SOB No nausea/vomiting, no abdominal pain No change in bowel habits noted Had her follow up labs done a few weeks ago - to discuss her results [facility] Medical History Vitamin D deficiency Arthralgia Obesity (BMI 30-39.9) Depression Anxiety Primary osteoarthritis of both knees Gastritis Hypomagnesemia Hypokalemia Impaired fasting glucose Pure hypercholesterolemia Benign essential hypertension Surgical History Status post colonoscopy (~07/30/19) History of tubal ligation History of cholecystectomy Family History Father Medical history unknown Mother Colon cancer Social History Housing: Apartment Alcohol intake: current Alcohol intake frequency: holidays/special occasions only Patient Tobacco Use Status: Former Tobacco user e-Cigarette/Vaping Use: Never Used Second Hand Smoke Exposure: Yes service: No Current occupational status: disabled Cognitive needs: No Hearing needs: No Vision needs: Yes Questionnaire PHQ-9 Over the last 2 weeks, how often have you been bothered by any of the following problems? 1. Little interest or pleasure in doing things: several days 2. Feeling down, depressed, or hopeless: several days 3. Trouble falling or staying asleep, or sleeping too much: several days 4. Feeling tired or having little energy: several days 5. Poor appetite or overeating: several days 6. Feeling bad about yourself - or that you are a failure or have let yourself or your family down: not at all 7. Trouble concentrating on things, such as reading the newspaper or watching television: not at all 8. Moving or speaking so slowly that other people could have noticed. Or the opposite - being so fidgety or restless that you have been moving around a lot more than usual: not at all 9. Thoughts that you would be better off or of hurting yourself in some way: not at all Total score: 5 Depression Screening Interpretation: Positive Depression Screening Follow-up: Existing condition and In treatment Depression Screening Done: Yes 44332 - PHQ-9 Billing: Yes Source: Developed by Drs. Abrahan Bob, Jennifer Amador, Mike Alvarez and colleagues, with an educational courtney from [employer]. Thrive Questionnaire Date Thrive assessed: 12/06/22 I am a: Patient What is your living situation today?: I have a steady place to live Within the past 12 months, did the food you bought not last and you didn't have the money to get more?: Never true Within the past 12 months, did you worry whether your food would run out before you got money to buy more?: Never true Do you have trouble paying for medicines?: No Do you have trouble getting transportation to medical appointments?: No Do you have trouble paying your heating and electricity bill?: No Do you have trouble taking care of your child, family member or friend?: No Do you have trouble with day-to-day activities such as bathing, preparing meals, shopping, managing finances, etc.?: No Are you currently unemployed and looking for a job?: No Are you interested in more education?: No Please select the resources that you would like help with: None Currently or been in a relationship where the following occur: no concerns reported AUDIT C Alcohol Use Questionnaire (AUDIT-C) 1. How often do you have a drink containing alcohol?: Never 3. How often do you have six or more drinks on one occasion?: Never Total Score: 0 Score Reviewed/Action Taken: Yes KEIRA-7 AMB Questionnaire KEIRA-7 Date KEIRA - 7 assessed: 12/06/22 Feeling nervous, anxious, or on edge: 1 = Several days Not being able to stop or control worryin = Several days Worrying too much about different things: 1 = Several days Trouble relaxin = Several days Being so restless that it is hard to sit still: 1 = Several days Becoming easily annoyed or irritable: 1 = Several days Feeling afraid as if something awful might happen: 0 = Not at all Total KEIRA-7 score (0-4 normal; 5-9 mild; 10-14 moderate; 15-21 severe): 6 Source: Developed by Drs. Abrahan Bob, Jennifer Amador, Mike Alvarez and colleagues, with an educational courtney from [employer]. Review of Systems Const Denies chills, Denies fatigue, Denies fever(s) and Denies headache(s) ENT Denies dysphagia, Denies dizziness, Denies otalgia, Denies headache(s), Denies neck pain, Denies odynophagia and Denies sore throat Card Denies chest pain, Denies irregular heart rhythm, Denies palpitations and Denies dyspnea Resp Denies chest congestion, Denies cough, Denies dyspnea and Denies wheezing GI Denies abdominal pain, Denies constipation, Denies dysphagia, Denies diarrhea, Denies nausea, Denies odynophagia and Denies vomiting Denies difficulty voiding, Denies dysuria and Denies urinary urgency Musc Denies back pain and Denies neck pain Skin/Breast Denies rash Neuro Denies dizziness and Denies headache(s) Endo Denies fatigue and Denies palpitations Aller/Immun Denies wheezing Physical exam (Primary Care) Vital Signs: Last Vital Signs Pulse 77 12/06/22 10:28 BP 118/80 12/06/22 10:28 Pulse Ox 94 12/06/22 10:28 Oxygen Delivery Method Room Air 12/06/22 10:28 BMI result Body Mass Index 31.7 Tobacco/Smoking Status: Tobacco use Status Tobacco use date assessed 12/06/22 12/06/22 10:30 Patient Tobacco Use Status Former Tobacco user 12/06/22 10:30 e-Cigarette/Vaping Use Never Used 12/06/22 10:30 PHQ-9: PHQ-9 Score PHQ-9: Total score 5 12/06/22 10:44 Depression Screening Interpretation: Positive Depression Screening Follow-up: Existing condition and In treatment Thrive Assessment: Date of Thrive Assessment Date Thrive assessed 12/06/22 12/06/22 10:30 Currently or been in a relationship where the following occur: no concerns reported Const General: no acute distress and alert HENMT Ears: TM's normal bilaterally and EAC's normal Throat: Yes posterior oropharynx normal and Yes tonsils normal (no TP congestion) Neck Neck: Yes no lymphadenopathy and Yes supple Resp Auscultation: clear to auscultation bilaterally, no rales and no wheezes Cardio Rate: regular rate Rhythm: regular rhythm Heart sounds: no murmurs GI Palpation (GI): Soft to palpation and nontender Auscultation: normal bowel sounds Back/Spine/Pelvis Thoracic/Lumbar Spine: thoracic and lumbar spine normal to inspection Skin Rashes: no rashes Extrem General: Yes no clubbing, cyanosis or edema Right lower extremity: knee Details: tenderness and crepitus; no swelling Left lower extremity: knee Details: tenderness and crepitus; no swelling Results Reviewed Results Reviewed: Laboratory Tests 11/11/22 11/11/22 09:15 09:43 WBC 4.7 L Hgb 13.8 Hct 41.0 Plt Count 258 Sodium 140 Potassium 4.1 Creatinine 0.80 Estimated GFR > 60 Fasting Glucose 108 H Hemoglobin A1c % 5.1 Calcium 9.6 AST 18 ALT 16 Triglycerides 70 Cholesterol 164 LDL Cholesterol, Calc 87 HDL Cholesterol 63 25-OH Vitamin D Total 53.5 TSH 1.40 Ur Specific [place] 1.025 Urine Protein Negative Urine Glucose (UA) Negative Urine Blood Negative Assessment and Plan Assessment & Plan (1) Pure hypercholesterolemia: Code(s): E78.00 - Pure hypercholesterolemia, unspecified Plan: Results of her labs done a few weeks ago reviewed and discussed with patient Reinforced low cholesterol diet Continue Atorvastatin to 20 mg QD Will recheck her labs and fasting lipids in 4 months for follow up (2) Benign essential hypertension: Code(s): I10 - Essential (primary) hypertension Plan: Reinforced low sodium diet - goal is systolic BP of at least 130 mm or less Continue Losartan 100 mg QD, Metoprolol 50 mg BID and HCTZ 12.5 mg QD (3) Impaired fasting glucose: Code(s): R73.01 - Impaired fasting glucose Plan: HgbA1c remained normal at 5.1% when checked a few weeks ago Reinforced low calorie diet/exercise as tolerated (4) Hypokalemia: Code(s): E87.6 - Hypokalemia Plan: Corrected - serum potassium level has been normal for a while now; will continue to monitor this regularly (5) Hypomagnesemia: Code(s): E83.42 - Hypomagnesemia Plan: Corrected on her previous labs Continue Magnesium tablets 1200 mg BID Will recheck her serum magnesium level in a few months for follow up (6) Gastritis: Code(s): K29.70 - Gastritis, unspecified, without bleeding Qualifiers: Gastritis type: unspecified gastritis Chronicity: unspecified Gastritis bleeding: without bleeding Qualified Code(s): K29.70 - Gastritis, unspecified, without bleeding Plan: Reinforced dietary restrictions Continue Omeprazole 20 mg QD (7) Vitamin D deficiency: Code(s): E55.9 - Vitamin D deficiency, unspecified Plan: Continue Vitamin D3 2000 units QD (8) Primary osteoarthritis of both knees: Code(s): M17.0 - Bilateral primary osteoarthritis of knee Plan: Knee x-rays done a couple of years ago revealed (+) OA changes bilaterally Follow up with orthopedics as scheduled (9) Anxiety: Code(s): F41.9 - Anxiety disorder, unspecified Plan: Continue Lorazepam 0.5 mg 2 to 3 times a day as needed for increased anxiety (10) Depression: Code(s): F32.9 - Major depressive disorder, single episode, unspecified Qualifiers: Depression Type: major depressive disorder Major depression recurrence: recurrent Active/Remission status: currently active Major depression episode severity: unspecified Qualified Code(s): F33.9 - Major depressive disorder, recurrent, unspecified Plan: Continue Fluoxetine 20 mg QD and Mirtazapine 7.5 mg Q HS (11) Obesity (BMI 30-39.9): Code(s): E66.9 - Obesity, unspecified Plan: Reinforced diet/exercise as tolerated/lose weight Plan Follow up in 4 months Orders: Orders Complete Blood Count Auto Diff 4 Months I10 - Essential (primary) hypertension Comprehensive [place]. Panel Fast 4 Months E78.00 - Pure hypercholesterolemia, unspecified TSH reflex Free T4 4 Months E78.00 - Pure hypercholesterolemia, unspecified UA CC w/rflx Micro + Cult 4 Months R30.0 - Dysuria Vitamin D 25-OH Total 4 Months E55.9 - Vitamin D deficiency, unspecified Magnesium 4 Months E83.42 - Hypomagnesemia Lipid Panel 4 Months E78.00 - Pure hypercholesterolemia, unspecified Coding Level of Care Code Est Pt Level 4 (97149) Diagnoses Pure hypercholesterolemia E78.00 Benign essential hypertension I10 Impaired fasting glucose R73.01 Hypokalemia E87.6 Hypomagnesemia E83.42 Gastritis without bleeding, unspecified chronicity, unspecified gastritis type K29.70 Gastritis type: unspecified gastritis Chronicity: unspecified Gastritis bleeding: without bleeding Vitamin D deficiency E55.9 Primary osteoarthritis of both knees M17.0 Anxiety F41.9 Episode of recurrent major depressive disorder, unspecified depression episode severity F33.9 Depression Type: major depressive disorder Major depression recurrence: recurrent Active/Remission status: currently active Major depression episode severity: unspecified Obesity (BMI 30-39.9) E66.9
== END 2022-12-06 11:07 | disposition home or self-care (01) ==
PROVIDERS: PCP Internal Medicine; Visit Provider Internal Medicine
DX: E78.00 Pure hypercholesterolemia, unspecified (principal); F33.9 Major depressive disorder, recurrent, unspecified; E66.9 Obesity, unspecified; Z68.31 Body mass index [BMI] 31.0-31.9, adult; I10 Essential (primary) hypertension; R73.01 Impaired fasting glucose; E87.6 Hypokalemia; E83.42 Hypomagnesemia; K29.70 Gastritis, unspecified, without bleeding; E55.9 Vitamin D deficiency, unspecified; M17.0 Bilateral primary osteoarthritis of knee; F41.9 Anxiety disorder, unspecified
CPT/HCPCS: 99214

== ENCOUNTER 2023-04-05 07:47 | Outpatient (REF) | payer OTHER, SELFPAY ==
[2023-04-05 07:54] LABS: MANUAL DIFF FLAG NO
[2023-04-05 08:33] LABS: Basophils Percent Auto 0.8 % (0-2); Eosinophils Absolute Auto 0.1 X10*3/uL (0.0-0.4); Eosinophils Percent Auto 2.5 % (0-4); Hematocrit 40.3 % (37.0-47.0); Hemoglobin 13.7 g/dl (12.0-16.0); Imm Gran Abs Auto 0.01 X10*3/uL (0.00-0.03); Imm Gran Pct Auto 0.2 % (0.0-0.4); Lymphocytes Absolute Auto 2.2 X10*3/uL (1.2-4.9); Lymphocytes Percent Auto 42.5 % (20-40); Mean Corpuscular Volume 88.4 fL (80.0-98.0); Mean Platelet Volume 10.4 fL (9.4-12.3); Monocytes Absolute Auto 0.4 X10*3/uL (0.1-1.2); Monocytes Percent Auto 8.4 % (2-11); Neutrophils Absolute Auto 2.3 x10*3/uL (2.0-8.3); Neutrophils Percent Auto 45.6 % (45-73); Platelet Count 254 X10*3/uL (160-400); Red Blood Count 4.56 X10*6/uL (4.20-5.50); Red Cell Distribution Width 12.3 % (11.0-16.0); White Blood Count 5.1 X10*3/uL (4.8-10.8)
[2023-04-05 09:05] LABS: Alanine Aminotransferase 16 U/L (0-31); Albumin Level 4.2 g/dL (3.5-5.0); Alkaline Phosphatase 103 U/L (39-117); Anion Gap 11 (12-20); Aspartate Amino Transferase 18 U/L (5-31); Bilirubin Total 0.7 mg/dL (0.0-1.0); Blood Urea Nitrogen 13 mg/dL (9-16); Calcium 9.8 mg/dL (8.4-10.2); Carbon Dioxide 31 mmol/L (22-29); Chloride 103 mmol/L (96-108); Cholesterol 189 mg/dL (<200); Estimated Glomerular Filt Rate > 60; Glucose Fasting 126 mg/dL (60-99); HDL Cholesterol 57 mg/dL (>40); LDL Cholesterol Calculated 99 mg/dL (<100); Potassium 3.8 mmol/L (3.3-5.1); Sodium 141 mmol/L (135-145); Total Protein 7.4 g/dL (6.5-8.0); Triglycerides 169 mg/dL (<150)
[2023-04-05 09:14] LABS: Magnesium 1.6 mg/dL (1.6-2.6); TSH reflex Free T4 1.96 uIU/mL (0.32-4.0); Vitamin D 25-OH Total 50.3 ng/mL (>30)
[2023-04-05 15:22] LABS: Appearance Urine Clear; Color Urine Yellow; Glucose Urine UA Negative (Negative); Leukocyte Esterase Urine Negative (Negative); Nitrite Urine Negative (Negative); Specific Gravity - Urine <= 1.005 (1.005-1.025); Urine Blood Negative (Negative); Urine Ketones Negative (Negative); Urine Protein Negative (Neg-Trace)
== END 2023-04-05 07:48 | disposition home or self-care (01) ==
LOC: HO.LAB 07:47
PROVIDERS: PCP Internal Medicine; Visit Provider Internal Medicine
DX: E78.00 Pure hypercholesterolemia, unspecified (principal); E55.9 Vitamin D deficiency, unspecified; R30.0 Dysuria; E83.42 Hypomagnesemia; I10 Essential (primary) hypertension
CPT/HCPCS: 36415; 80053; 80061; 81003; 82306; 83735; 84443; 85025

== ENCOUNTER 2023-04-08 10:30 | Outpatient (AMB) | payer OTHER, SELFPAY ==
[2023-04-08 10:34] VITALS: BP 118/82; PULSE 60; O2SAT 98; BMI 31.8
--- NOTE | 2023-04-08 10:34 | A.OFFPC_ITS ---
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 Accompanied by: Self / Same As Patient Allergies nitroglycerin [NITROGLYCERIN] Allergy (Severe, Verified 04/08/23 11:32) NAUSEA, NUMBNESS IN MOUTH, burning Medication List - Last Reconciled 04/08/23 by Jatinder Amado MD atorvastatin 20 mg PO DAILY 90 days cholecalciferol (vitamin D3) 50 mcg PO DAILY 90 days fluoxetine 20 mg PO QAM hydrochlorothiazide 12.5 mg PO QAM 90 days lidocaine 5% 1 patch topical DAILY lorazepam 0.5 mg PO BID-TID PRN 30 days losartan 100 mg PO DAILY magnesium oxide 1,200 mg PO BID metoprolol tartrate 50 mg PO BID mirtazapine 7.5 mg PO BEDTIME 30 days nabumetone 500 mg PO BID PRN 30 days omeprazole 20 mg PO DAILY potassium chloride ER (Klor-Con M) 10 mEq PO DAILY tizanidine 4 mg PO TID PRN Tobacco use date assessed: 04/08/23 Fall risk assessment: No Falls in past year Last assessed Fall Risk: 04/08/23 Dental Screening Dental Screen Date: 04/08/23 Did you have a dental visit in the last 12 months?: No Did you have a dental problem in the last 6 months where you did not have access to dental care?: No Was dental information given to patient?: No HPI hyperlipidemia, HTN, IFG HPI Details Patient comes in today for her follow up visit States that she feels okay She denies any headaches or dizziness Denies any chest pains, no SOB No nausea/vomiting, no abdominal pain No change in bowel habits noted Needs her Lorazepam Rx refilled Had her follow up labs done a few days ago - to discuss her results [facility] Medical History Vitamin D deficiency Arthralgia Obesity (BMI 30-39.9) Depression Anxiety Primary osteoarthritis of both knees Gastritis Hypomagnesemia Hypokalemia Impaired fasting glucose Pure hypercholesterolemia Benign essential hypertension Surgical History Status post colonoscopy (~07/30/19) History of tubal ligation History of cholecystectomy Family History Father Medical history unknown Mother Colon cancer Social History Housing: Apartment Alcohol intake: current Alcohol intake frequency: holidays/special occasions only Patient Tobacco Use Status: Former Tobacco user e-Cigarette/Vaping Use: Never Used Second Hand Smoke Exposure: Yes service: No Current occupational status: disabled Cognitive needs: No Hearing needs: No Vision needs: Yes Questionnaire PHQ-9 Over the last 2 weeks, how often have you been bothered by any of the following problems? 1. Little interest or pleasure in doing things: several days 2. Feeling down, depressed, or hopeless: several days 3. Trouble falling or staying asleep, or sleeping too much: several days 4. Feeling tired or having little energy: several days 5. Poor appetite or overeating: several days 6. Feeling bad about yourself - or that you are a failure or have let yourself or your family down: not at all 7. Trouble concentrating on things, such as reading the newspaper or watching television: not at all 8. Moving or speaking so slowly that other people could have noticed. Or the opposite - being so fidgety or restless that you have been moving around a lot more than usual: not at all 9. Thoughts that you would be better off or of hurting yourself in some way: not at all Total score: 5 Depression Screening Interpretation: Positive Depression Screening Follow-up: Existing condition and In treatment Depression Screening Done: Yes 24261 - PHQ-9 Billing: Yes Source: Developed by Drs. Abrahan Bob, Jennifer Amador, Mike Alvarez and colleagues, with an educational courtney from [employer]. Thrive Questionnaire Date Thrive assessed: 04/08/23 I am a: Patient What is your living situation today?: I have a steady place to live Within the past 12 months, did the food you bought not last and you didn't have the money to get more?: Never true Within the past 12 months, did you worry whether your food would run out before you got money to buy more?: Never true Do you have trouble paying for medicines?: No Do you have trouble getting transportation to medical appointments?: No Do you have trouble paying your heating and electricity bill?: No Do you have trouble taking care of your child, family member or friend?: No Do you have trouble with day-to-day activities such as bathing, preparing meals, shopping, managing finances, etc.?: No Are you currently unemployed and looking for a job?: No Are you interested in more education?: No Please select the resources that you would like help with: None Currently or been in a relationship where the following occur: no concerns reported THRIVE Score: 0 AUDIT C Alcohol Use Questionnaire (AUDIT-C) 1. How often do you have a drink containing alcohol?: Never 3. How often do you have six or more drinks on one occasion?: Never Total Score: 0 Score Reviewed/Action Taken: Yes KEIRA-7 AMB Questionnaire KEIRA-7 Date KEIRA - 7 assessed: 04/08/23 Feeling nervous, anxious, or on edge: 1 = Several days Not being able to stop or control worryin = Several days Worrying too much about different things: 1 = Several days Trouble relaxin = Several days Being so restless that it is hard to sit still: 1 = Several days Becoming easily annoyed or irritable: 1 = Several days Feeling afraid as if something awful might happen: 0 = Not at all Total KEIRA-7 score (0-4 normal; 5-9 mild; 10-14 moderate; 15-21 severe): 6 Source: Developed by Drs. Abrahan Bob, Jennifer Amador, Mike Alvarez and colleagues, with an educational courtney from [employer]. Review of Systems Const Denies chills, Denies fatigue, Denies fever(s) and Denies headache(s) ENT Denies dysphagia, Denies dizziness, Denies otalgia, Denies headache(s), Denies neck pain, Denies odynophagia and Denies sore throat Card Denies chest pain, Denies irregular heart rhythm, Denies palpitations and Denies dyspnea Resp Denies chest congestion, Denies cough, Denies dyspnea and Denies wheezing GI Denies abdominal pain, Denies constipation, Denies dysphagia, Denies diarrhea, Denies nausea, Denies odynophagia and Denies vomiting Denies difficulty voiding, Denies dysuria and Denies urinary urgency Musc Denies back pain and Denies neck pain Skin/Breast Denies rash Neuro Denies dizziness and Denies headache(s) Psych Reports anxiety (controlled on Rx) Endo Denies fatigue and Denies palpitations Aller/Immun Denies wheezing Physical exam (Primary Care) Vital Signs: Last Vital Signs Pulse 60 04/08/23 10:34 BP 118/82 04/08/23 10:34 Pulse Ox 98 04/08/23 10:34 Oxygen Delivery Method Room Air 04/08/23 10:34 BMI result Body Mass Index 31.8 Tobacco/Smoking Status: Tobacco use Status Tobacco use date assessed 04/08/23 04/08/23 10:46 Patient Tobacco Use Status Former Tobacco user 04/08/23 10:46 e-Cigarette/Vaping Use Never Used 04/08/23 10:46 PHQ-9: PHQ-9 Score PHQ-9: Total score 5 04/08/23 10:46 Depression Screening Interpretation: Positive Depression Screening Follow-up: Existing condition and In treatment Thrive Assessment: Date of Thrive Assessment Date Thrive assessed 04/08/23 04/08/23 10:46 Currently or been in a relationship where the following occur: no concerns reported Const General: no acute distress and alert HENMT Ears: TM's normal bilaterally and EAC's normal Throat: Yes posterior oropharynx normal and Yes tonsils normal (no TP congestion) Neck Neck: Yes no lymphadenopathy and Yes supple Resp Auscultation: clear to auscultation bilaterally, no rales and no wheezes Cardio Rate: regular rate Rhythm: regular rhythm Heart sounds: no murmurs GI Palpation (GI): Soft to palpation and nontender Auscultation: normal bowel sounds Back/Spine/Pelvis Thoracic/Lumbar Spine: No lumbar spinal tenderness Skin Rashes: no rashes Extrem General: Yes no clubbing, cyanosis or edema Right lower extremity: knee Details: tenderness and crepitus; no swelling Left lower extremity: knee Details: tenderness and crepitus; no swelling Results Reviewed Results Reviewed: Laboratory Tests 04/05/23 04/05/23 04/05/23 07:53 07:53 12:35 WBC 5.1 Hgb 13.7 Hct 40.3 Plt Count 254 Sodium 141 Potassium 3.8 Creatinine 0.85 Estimated GFR > 60 Fasting Glucose 126 H Calcium 9.8 Magnesium 1.6 AST 18 ALT 16 Triglycerides 169 H Cholesterol 189 LDL Cholesterol, Calc 99 HDL Cholesterol 57 25-OH Vitamin D Total 50.3 TSH 1.96 Ur Specific [place] <= 1.005 Urine Protein Negative Urine Glucose (UA) Negative Urine Blood Negative Urine Nitrite Negative Ur Leukocyte Esterase Negative Assessment and Plan Assessment & Plan (1) Pure hypercholesterolemia: Code(s): E78.00 - Pure hypercholesterolemia, unspecified Plan: Results of her labs done a few days ago reviewed and discussed with patient - advised that her cholesterol numbers are at goal although they have gone up slightly from previous Reinforced low cholesterol diet Continue Atorvastatin 20 mg QD Will recheck her labs and fasting lipids in 4 months for follow up (2) Benign essential hypertension: Code(s): I10 - Essential (primary) hypertension Plan: Reinforced low sodium diet - goal is systolic BP of at least 130 mm or less Continue Losartan 100 mg QD, Metoprolol 50 mg BID and HCTZ 12.5 mg QD (3) Impaired fasting glucose: Code(s): R73.01 - Impaired fasting glucose Plan: HgbA1c remained normal at 5.1% when checked a few months ago Reinforced low calorie diet/exercise as tolerated Will recheck her FBS and HgbA1c in a few months for follow up (4) Hypokalemia: Code(s): E87.6 - Hypokalemia Plan: Corrected - serum potassium level has been normal for a while now; will continue to monitor this regularly (5) Hypomagnesemia: Code(s): E83.42 - Hypomagnesemia Plan: Corrected - her serum magnesium level remains normal on her recent labs Continue Magnesium tablets 1200 mg BID Will recheck her serum magnesium level in a few months for follow up (6) Gastritis: Code(s): K29.70 - Gastritis, unspecified, without bleeding Qualifiers: Gastritis type: unspecified gastritis Chronicity: unspecified Gastritis bleeding: without bleeding Qualified Code(s): K29.70 - Gastritis, unspecified, without bleeding Plan: Reinforced dietary restrictions Continue Omeprazole 20 mg QD (7) Vitamin D deficiency: Code(s): E55.9 - Vitamin D deficiency, unspecified Plan: Continue Vitamin D3 2000 units QD (8) Primary osteoarthritis of both knees: Code(s): M17.0 - Bilateral primary osteoarthritis of knee Plan: Knee x-rays done a couple of years ago revealed (+) OA changes bilaterally Follow up with orthopedics as scheduled (9) Anxiety: Code(s): F41.9 - Anxiety disorder, unspecified Plan: Continue Lorazepam 0.5 mg 2 to 3 times a day as needed for increased anxiety - Rx refilled (10) Depression: Code(s): F32.9 - Major depressive disorder, single episode, unspecified Qualifiers: Depression Type: major depressive disorder Major depression recurrence: recurrent Active/Remission status: currently active Major depression episode severity: unspecified Qualified Code(s): F33.9 - Major depressive disorder, recurrent, unspecified Plan: Continue Fluoxetine 20 mg QD and Mirtazapine 7.5 mg Q HS (11) Obesity (BMI 30-39.9): Code(s): E66.9 - Obesity, unspecified Plan: Reinforced diet/exercise as tolerated/lose weight Plan Follow up in 4 months Orders: Orders Hemoglobin A1c 4 Months R73.01 - Impaired fasting glucose TSH reflex Free T4 4 Months E78.00 - Pure hypercholesterolemia, unspecified UA CC w/rflx Micro + Cult 4 Months R30.0 - Dysuria Vitamin D 25-OH Total 4 Months E55.9 - Vitamin D deficiency, unspecified Complete Blood Count Auto Diff 4 Months D64.9 - Anemia, unspecified Lipid Panel 4 Months E78.00 - Pure hypercholesterolemia, unspecified Comprehensive [place]. Panel Fast 4 Months E78.00 - Pure hypercholesterolemia, unspecified Magnesium 4 Months E83.42 - Hypomagnesemia Medications: Refilled lorazepam 0.5 mg PO BID-TID 30 days PRN 90 tabs 0RF anxiety Coding Level of Care Code Est Pt Level 4 (50170) Diagnoses Pure hypercholesterolemia E78.00 Benign essential hypertension I10 Impaired fasting glucose R73.01 Hypokalemia E87.6 Hypomagnesemia E83.42 Gastritis without bleeding, unspecified chronicity, unspecified gastritis type K29.70 Gastritis type: unspecified gastritis Chronicity: unspecified Gastritis bleeding: without bleeding Vitamin D deficiency E55.9 Primary osteoarthritis of both knees M17.0 Anxiety F41.9 Episode of recurrent major depressive disorder, unspecified depression episode severity F33.9 Depression Type: major depressive disorder Major depression recurrence: recurrent Active/Remission status: currently active Major depression episode severity: unspecified Obesity (BMI 30-39.9) E66.9
== END 2023-04-08 11:37 | disposition home or self-care (01) ==
PROVIDERS: PCP Internal Medicine; Visit Provider Internal Medicine
DX: E78.00 Pure hypercholesterolemia, unspecified (principal); I10 Essential (primary) hypertension; R73.01 Impaired fasting glucose; E87.6 Hypokalemia; E83.42 Hypomagnesemia; K29.70 Gastritis, unspecified, without bleeding; E55.9 Vitamin D deficiency, unspecified; M17.0 Bilateral primary osteoarthritis of knee; F41.9 Anxiety disorder, unspecified; E66.9 Obesity, unspecified
CPT/HCPCS: 99214

== ENCOUNTER 2023-04-23 10:25 | Outpatient (REF) | payer OTHER, SELFPAY | END 2023-04-23 10:26 | disposition home or self-care (01) | LOC: HO.MAMMO 10:25 | PROVIDERS: PCP Internal Medicine; Visit Provider Internal Medicine | DX: Z12.31 Encounter for screening mammogram for malignant neoplasm of breast (principal) | CPT/HCPCS: 77063; 77067 ==

== ENCOUNTER → 2023-04-23 10:30 | Outpatient (BNV) | payer OTHER, SELFPAY | PROVIDERS: PCP Internal Medicine; Visit Provider Radiology Diagnostic Radiology | DX: Z12.31 Encounter for screening mammogram for malignant neoplasm of breast (principal) | CPT/HCPCS: 77063; 77067 ==

== ENCOUNTER 2023-08-08 07:55 | Outpatient (REF) | payer OTHER, SELFPAY ==
[2023-08-08 08:08] LABS: MANUAL DIFF FLAG NO
[2023-08-08 08:26] LABS: Appearance Urine Clear; Color Urine Yellow; Glucose Urine UA Negative (Negative); Leukocyte Esterase Urine Small (1+) (Negative); Nitrite Urine Negative (Negative); PH 5.5 (5.0-9.0); UMIC TRIGGER UACC YES; Urine Blood Negative (Negative); Urine Ketones Trace mg/dL (Negative); Urine Protein Negative (Neg-Trace)
[2023-08-08 08:27] LABS: Basophils Absolute Auto 0.1 X10*3/uL (0.0-0.2); Eosinophils Absolute Auto 0.1 X10*3/uL (0.0-0.4); Eosinophils Percent Auto 2.1 % (0-4); Hematocrit 41.1 % (37.0-47.0); Imm Gran Abs Auto 0.01 X10*3/uL (0.00-0.03); Imm Gran Pct Auto 0.2 % (0.0-0.4); Lymphocytes Absolute Auto 2.2 X10*3/uL (1.2-4.9); Lymphocytes Percent Auto 41.5 % (20-40); Mean Corpuscular HGB Conc 34.1 g/dl (31.0-35.0); Mean Platelet Volume 10.2 fL (9.4-12.3); Monocytes Absolute Auto 0.4 X10*3/uL (0.1-1.2); Monocytes Percent Auto 8.5 % (2-11); Neutrophils Absolute Auto 2.4 x10*3/uL (2.0-8.3); Neutrophils Percent Auto 46.7 % (45-73); Platelet Count 270 X10*3/uL (160-400); Red Blood Count 4.67 X10*6/uL (4.20-5.50); Red Cell Distribution Width 12.4 % (11.0-16.0); White Blood Count 5.2 X10*3/uL (4.8-10.8)
[2023-08-08 08:32] LABS: Bacteria Urine 1+ (None Seen); Hyaline Casts Urine 0-2 /LPF (0-2); RBC Urine 0-2 /HPF (0-2); UACC Culture Trigger YES
[2023-08-08 08:33] LABS: Estimated Average Glucose 105 mg/dL; Hemoglobin A1c % 5.3 % (<6.0)
[2023-08-08 09:10] LABS: Alanine Aminotransferase 28 U/L (0-31); Albumin Level 4.4 g/dL (3.5-5.0); Alkaline Phosphatase 118 U/L (39-117); Anion Gap 16 (12-20); Aspartate Amino Transferase 24 U/L (5-31); Bilirubin Total 0.8 mg/dL (0.0-1.0); Blood Urea Nitrogen 12 mg/dL (9-16); Calcium 9.8 mg/dL (8.4-10.2); Carbon Dioxide 26 mmol/L (22-29); Chloride 103 mmol/L (96-108); Cholesterol 185 mg/dL (<200); Estimated Glomerular Filt Rate 50; Glucose Fasting 126 mg/dL (60-99); HDL Cholesterol 54 mg/dL (>40); LDL Cholesterol Calculated 100 mg/dL (<100); Magnesium 1.5 mg/dL (1.6-2.6); Potassium 3.9 mmol/L (3.3-5.1); Sodium 141 mmol/L (135-145); Total Protein 7.5 g/dL (6.5-8.0); Triglycerides 158 mg/dL (<150)
[2023-08-08 09:30] LABS: TSH reflex Free T4 2.56 uIU/mL (0.32-4.0)
== END 2023-08-08 07:56 | disposition home or self-care (01) ==
LOC: HO.LAB 07:55
PROVIDERS: PCP Internal Medicine; Visit Provider Internal Medicine
DX: E78.00 Pure hypercholesterolemia, unspecified (principal); D64.9 Anemia, unspecified; E83.52 Hypercalcemia; R73.01 Impaired fasting glucose; R30.0 Dysuria
CPT/HCPCS: 36415; 80053; 80061; 81001; 82306; 83036; 83735; 84443; 85025; 87086

== ENCOUNTER 2023-08-12 10:37 | Outpatient (AMB) | payer OTHER, SELFPAY ==
[2023-08-12 10:38] VITALS: BP 122/60; PULSE 74; O2SAT 98; BMI 31.9
--- NOTE | 2023-08-12 10:38 | A.OFFPC_ITS ---
Vital Signs 08/12/23 10:38 Height 5 ft 1 in Weight 169 lb BMI 31.9 BP 122/60 Blood Pressure Location Lt brachial Position Sitting Pulse 74 Pulse Source Pulse Oximeter Pulse Oximetry (%) 98 Oxygen Delivery Method Room Air Intake Visit Reasons: hyperlipidemia, IFG, HTN Allergies nitroglycerin [NITROGLYCERIN] Allergy (Severe, Verified 08/12/23 11:00) NAUSEA, NUMBNESS IN MOUTH, burning Medication List - Last Reconciled 08/12/23 by Jatinder Amado MD atorvastatin 20 mg PO DAILY 90 days cholecalciferol (vitamin D3) 50 mcg PO DAILY 90 days fluoxetine 20 mg PO QAM hydrochlorothiazide 12.5 mg PO QAM 90 days lidocaine 5% 1 patch topical DAILY lorazepam 0.5 mg PO BID-TID PRN 30 days losartan 100 mg PO DAILY magnesium oxide 1,200 mg PO BID metoprolol tartrate 50 mg PO BID mirtazapine 7.5 mg PO BEDTIME 30 days nabumetone 500 mg PO BID PRN 30 days omeprazole 20 mg PO DAILY potassium chloride ER (Klor-Con M) 10 mEq PO DAILY tizanidine 4 mg PO TID PRN Tobacco use date assessed: 04/08/23 Fall risk assessment: No Falls in past year Last assessed Fall Risk: 08/12/23 Dental Screening Dental Screen Date: 04/08/23 HPI hyperlipidemia, IFG, HTN HPI Details Patient comes in today for her follow up visit States that she feels okay She denies any headaches or dizziness Denies any chest pains, no SOB No nausea/vomiting, no abdominal pain No change in bowel habits noted Needs her Lorazepam Rx refilled today She had her follow up labs done a few days ago - to discuss her results [facility] Medical History Vitamin D deficiency Arthralgia Obesity (BMI 30-39.9) Depression Anxiety Primary osteoarthritis of both knees Gastritis Hypomagnesemia Hypokalemia Impaired fasting glucose Pure hypercholesterolemia Benign essential hypertension Surgical History Status post colonoscopy (~07/30/19) History of tubal ligation History of cholecystectomy Family History Father Medical history unknown Mother Colon cancer Social History Housing: Apartment Alcohol intake: current Alcohol intake frequency: holidays/special occasions only Patient Tobacco Use Status: Former Tobacco user e-Cigarette/Vaping Use: Never Used Second Hand Smoke Exposure: Yes service: No Current occupational status: disabled Cognitive needs: No Hearing needs: No Vision needs: Yes Questionnaire Thrive Questionnaire Date Thrive assessed: 04/08/23 AUDIT C Alcohol Use Questionnaire (AUDIT-C) 1. How often do you have a drink containing alcohol?: Never 3. How often do you have six or more drinks on one occasion?: Never Total Score: 0 Score Reviewed/Action Taken: Yes KEIRA-7 AMB Questionnaire KEIRA-7 Date KEIRA - 7 assessed: 04/08/23 Source: Developed by Drs. Abrahan Bob, Jennifer Amador, Mike Alvarez and colleagues, with an educational courtney from [employer]. Review of Systems Const Denies chills, Denies fatigue, Denies fever(s) and Denies headache(s) ENT Denies dysphagia, Denies dizziness, Denies otalgia, Denies headache(s), Denies neck pain, Denies odynophagia and Denies sore throat Card Denies chest pain, Denies irregular heart rhythm, Denies palpitations and Denies dyspnea Resp Denies chest congestion, Denies cough, Denies dyspnea and Denies wheezing GI Denies abdominal pain, Denies constipation, Denies dysphagia, Denies diarrhea, Denies nausea, Denies odynophagia and Denies vomiting Denies difficulty voiding, Denies dysuria and Denies urinary urgency Musc Denies back pain and Denies neck pain Skin/Breast Denies rash Neuro Denies dizziness and Denies headache(s) Psych Reports anxiety (controlled on Rx) Endo Denies fatigue and Denies palpitations Aller/Immun Denies wheezing Physical exam (Primary Care) Vital Signs: Last Vital Signs Pulse 74 08/12/23 10:38 BP 122/60 08/12/23 10:38 Pulse Ox 98 08/12/23 10:38 Oxygen Delivery Method Room Air 08/12/23 10:38 BMI result Body Mass Index 31.9 Tobacco/Smoking Status: Tobacco use Status Tobacco use date assessed 04/08/23 08/12/23 10:44 Patient Tobacco Use Status Former Tobacco user 08/12/23 10:44 e-Cigarette/Vaping Use Never Used 08/12/23 10:44 Thrive Assessment: Date of Thrive Assessment Date Thrive assessed 04/08/23 08/12/23 10:44 Const General: no acute distress and alert HENMT Ears: TM's normal bilaterally and EAC's normal Throat: Yes posterior oropharynx normal and Yes tonsils normal (no TP congestion) Neck Neck: Yes no lymphadenopathy and Yes supple Thyroid: Thyroid normal Resp Auscultation: clear to auscultation bilaterally, no rales and no wheezes Cardio Rate: regular rate Rhythm: regular rhythm Heart sounds: no murmurs GI Palpation (GI): Soft to palpation and nontender Auscultation: normal bowel sounds General: Yes no CVA tenderness Back/Spine/Pelvis Back: no CVA tenderness Thoracic/Lumbar Spine: No lumbar spinal tenderness Skin Rashes: no rashes Extrem General: Yes no clubbing, cyanosis or edema Right lower extremity: knee Details: tenderness and crepitus; no swelling Left lower extremity: knee Details: tenderness and crepitus; no swelling Results Reviewed Results Reviewed: Laboratory Tests 08/08/23 08/08/23 08:07 08:10 WBC 5.2 Hgb 14.0 Hct 41.1 Plt Count 270 Sodium 141 Potassium 3.9 Creatinine 1.09 Estimated GFR 50 Fasting Glucose 126 H Hemoglobin A1c % 5.3 Calcium 9.8 Magnesium 1.5 L AST 24 ALT 28 Triglycerides 158 H Cholesterol 185 LDL Cholesterol, Calc 100 H HDL Cholesterol 54 25-OH Vitamin D Total 49.0 TSH 2.56 Ur Specific [place] 1.020 Urine Protein Negative Urine Glucose (UA) Negative Urine Blood Negative Urine Nitrite Negative Ur Leukocyte Esterase Small (1+) H Assessment and Plan Assessment & Plan (1) Pure hypercholesterolemia: Code(s): E78.00 - Pure hypercholesterolemia, unspecified Plan: Results of her labs done a few days ago reviewed and discussed with patient Reinforced low cholesterol diet Continue Atorvastatin 20 mg QD Will recheck her labs and fasting lipids in 4 months for follow up (2) Benign essential hypertension: Code(s): I10 - Essential (primary) hypertension Plan: Reinforced low sodium diet - goal is systolic BP of at least 130 mm or less Continue Losartan 100 mg QD, Metoprolol 50 mg BID and HCTZ 12.5 mg QD (3) Impaired fasting glucose: Code(s): R73.01 - Impaired fasting glucose Plan: Her HgbA1c remained normal at 5.3% on her recent labs even though her FBS is still elevated at 126 mg/dl Reinforced low calorie diet/exercise as tolerated Will continue to monitor her FBS and HgbA1c regularly (4) Hypokalemia: Code(s): E87.6 - Hypokalemia Plan: Corrected - serum potassium level has been normal for a while now; will continue to monitor this regularly (5) Hypomagnesemia: Code(s): E83.42 - Hypomagnesemia Plan: Her serum magnesium level is again slightly low on her recent labs Continue Magnesium tablets 1200 mg BID Will continue to monitor her serum magnesium level regularly (6) Gastritis: Code(s): K29.70 - Gastritis, unspecified, without bleeding Qualifiers: Gastritis type: unspecified gastritis Chronicity: unspecified Gastritis bleeding: without bleeding Qualified Code(s): K29.70 - Gastritis, unspecified, without bleeding Plan: Reinforced dietary restrictions Continue Omeprazole 20 mg QD (7) Vitamin D deficiency: Code(s): E55.9 - Vitamin D deficiency, unspecified Plan: Continue Vitamin D3 2000 units QD (8) Primary osteoarthritis of both knees: Code(s): M17.0 - Bilateral primary osteoarthritis of knee Plan: Knee x-rays done a couple of years ago revealed (+) OA changes bilaterally Follow up with orthopedics as scheduled (9) Anxiety: Code(s): F41.9 - Anxiety disorder, unspecified Plan: Continue Lorazepam 0.5 mg 2 to 3 times a day as needed for increased anxiety - Rx refilled (10) Depression: Code(s): F32.9 - Major depressive disorder, single episode, unspecified Qualifiers: Depression Type: major depressive disorder Major depression recurrence: recurrent Active/Remission status: currently active Major depression episode severity: unspecified Qualified Code(s): F33.9 - Major depressive disorder, recurrent, unspecified Plan: Continue Fluoxetine 20 mg QD and Mirtazapine 7.5 mg Q HS (11) Obesity (BMI 30-39.9): Code(s): E66.9 - Obesity, unspecified Plan: Reinforced diet/exercise as tolerated/lose weight Plan Follow up in 4 months Orders: Orders Comprehensive [place]. Panel Fast 4 Months E78.00 - Pure hypercholesterolemia, unspecified, E87.6 - Hypokalemia, I10 - Essential (primary) hypertension, R73.01 - Impaired fasting glucose UA CC w/rflx Micro + Cult 4 Months R30.0 - Dysuria Vitamin D 25-OH Total 4 Months E55.9 - Vitamin D deficiency, unspecified Complete Blood Count Auto Diff 4 Months D64.9 - Anemia, unspecified Lipid Panel 4 Months E78.00 - Pure hypercholesterolemia, unspecified Magnesium 4 Months E83.42 - Hypomagnesemia TSH reflex Free T4 4 Months E78.00 - Pure hypercholesterolemia, unspecified Hemoglobin A1c 4 Months R73.01 - Impaired fasting glucose Medications: Refilled lorazepam 0.5 mg PO BID-TID 30 days PRN 90 tabs 0RF anxiety Coding Level of Care Code Est Pt Level 4 (68216) Complex EM visit Add On G2211 Diagnoses Pure hypercholesterolemia E78.00 Benign essential hypertension I10 Impaired fasting glucose R73.01 Hypokalemia E87.6 Hypomagnesemia E83.42 Gastritis without bleeding, unspecified chronicity, unspecified gastritis type K29.70 Gastritis type: unspecified gastritis Chronicity: unspecified Gastritis bleeding: without bleeding Vitamin D deficiency E55.9 Primary osteoarthritis of both knees M17.0 Anxiety F41.9 Episode of recurrent major depressive disorder, unspecified depression episode severity F33.9 Depression Type: major depressive disorder Major depression recurrence: recurrent Active/Remission status: currently active Major depression episode severity: unspecified Obesity (BMI 30-39.9) E66.9
== END 2023-08-12 11:10 | disposition home or self-care (01) ==
PROVIDERS: PCP Internal Medicine; Visit Provider Internal Medicine
DX: E78.00 Pure hypercholesterolemia, unspecified (principal); I10 Essential (primary) hypertension; R73.01 Impaired fasting glucose; F33.9 Major depressive disorder, recurrent, unspecified; E87.6 Hypokalemia; E83.42 Hypomagnesemia; K29.70 Gastritis, unspecified, without bleeding; E55.9 Vitamin D deficiency, unspecified; M17.0 Bilateral primary osteoarthritis of knee; F41.9 Anxiety disorder, unspecified; E66.9 Obesity, unspecified
CPT/HCPCS: 99214; G2211

== ENCOUNTER 2023-12-03 07:56 | Outpatient (REF) | payer OTHER, SELFPAY ==
[2023-12-03 08:32] LABS: MANUAL DIFF FLAG NO
[2023-12-03 08:42] LABS: Basophils Absolute Auto 0.1 X10*3/uL (0.0-0.2); Eosinophils Absolute Auto 0.1 X10*3/uL (0.0-0.4); Hematocrit 40.6 % (37.0-47.0); Hemoglobin 13.9 g/dl (12.0-16.0); Imm Gran Abs Auto 0.01 X10*3/uL (0.00-0.03); Imm Gran Pct Auto 0.2 % (0.0-0.4); Lymphocytes Percent Auto 38.8 % (20-40); Mean Corpuscular HGB Conc 34.2 g/dl (31.0-35.0); Mean Corpuscular Hemoglobin 30.7 pg (27.0-33.0); Mean Corpuscular Volume 89.6 fL (80.0-98.0); Mean Platelet Volume 10.2 fL (9.4-12.3); Monocytes Absolute Auto 0.4 X10*3/uL (0.1-1.2); Monocytes Percent Auto 8.3 % (2-11); Neutrophils Absolute Auto 2.5 x10*3/uL (2.0-8.3); Neutrophils Percent Auto 49.7 % (45-73); Platelet Count 230 X10*3/uL (160-400); Red Blood Count 4.53 X10*6/uL (4.20-5.50); Red Cell Distribution Width 12.3 % (11.0-16.0)
[2023-12-03 08:44] LABS: Appearance Urine Clear; Color Urine Yellow; Glucose Urine UA Negative (Negative); Leukocyte Esterase Urine Small (1+) (Negative); Nitrite Urine Negative (Negative); PH 6.5 (5.0-9.0); Specific Gravity - Urine 1.025 (1.005-1.025); UMIC TRIGGER UACC YES; Urine Blood Negative (Negative); Urine Ketones Trace mg/dL (Negative); Urine Protein Negative (Neg-Trace)
[2023-12-03 08:50] LABS: Bacteria Urine 2+ (None Seen); Hyaline Casts Urine 0-2 /LPF (0-2); RBC Urine 0-2 /HPF (0-2); UACC Culture Trigger YES
[2023-12-03 08:55] LABS: Estimated Average Glucose 108 mg/dL; Hemoglobin A1c % 5.4 % (<6.0); Total Hemoglobin (HGBA1C) 3428.7812 umol/L
[2023-12-03 09:21] LABS: Alanine Aminotransferase 32 U/L (0-31); Albumin Level 4.4 g/dL (3.5-5.0); Alkaline Phosphatase 113 U/L (39-117); Anion Gap 12 (12-20); Aspartate Amino Transferase 30 U/L (5-31); Bilirubin Total 0.8 mg/dL (0.0-1.0); Blood Urea Nitrogen 12 mg/dL (9-16); Calcium 10.2 mg/dL (8.4-10.2); Carbon Dioxide 29 mmol/L (22-29); Chloride 104 mmol/L (96-108); Cholesterol 176 mg/dL (<200); Estimated Glomerular Filt Rate 59; Glucose Fasting 130 mg/dL (60-99); HDL Cholesterol 58 mg/dL (>40); LDL Cholesterol Calculated 91 mg/dL (<100); Magnesium 1.6 mg/dL (1.6-2.6); Potassium 4.3 mmol/L (3.3-5.1); Sodium 141 mmol/L (135-145); Total Protein 7.4 g/dL (6.5-8.0); Triglycerides 135 mg/dL (<150)
[2023-12-03 09:38] LABS: TSH reflex Free T4 2.92 uIU/mL (0.32-4.0); Vitamin D 25-OH Total 57.3 ng/mL (>30)
== END 2023-12-03 07:57 | disposition home or self-care (01) ==
LOC: HO.LAB 07:56
PROVIDERS: PCP Internal Medicine; Visit Provider Internal Medicine
DX: D64.9 Anemia, unspecified (principal); R30.0 Dysuria; E55.9 Vitamin D deficiency, unspecified; E78.00 Pure hypercholesterolemia, unspecified; E83.42 Hypomagnesemia; R73.01 Impaired fasting glucose; E87.6 Hypokalemia; I10 Essential (primary) hypertension
CPT/HCPCS: 36415; 80053; 80061; 81001; 82306; 83036; 83735; 84443; 85025; 87086

== ENCOUNTER 2023-12-13 10:48 | Outpatient (AMB) | payer OTHER, SELFPAY ==
[2023-12-13 10:49] VITALS: BP 124/78; PULSE 92; O2SAT 97; BMI 31.6
--- NOTE | 2023-12-13 10:49 | MHC.PC.OV ---
Vital Signs 12/13/23 10:49 Height 5 ft 1 in Weight 167 lb 6 oz BMI 31.6 BP 124/78 Blood Pressure Location Lt brachial Position Sitting Pulse 92 Pulse Source Pulse Oximeter Pulse Oximetry (%) 97 Oxygen Delivery Method Room Air Intake Visit Reasons: hyperlipidemia, HTN, IFG, anxiety Physician Office Assistant Required: No Accompanied by: Self / Same As Patient Allergies nitroglycerin [NITROGLYCERIN] Allergy (Severe, Verified 12/13/23 11:08) NAUSEA, NUMBNESS IN MOUTH, burning Medication List - Last Reconciled 12/13/23 by Jatinder Amado MD atorvastatin 20 mg PO DAILY 90 days cholecalciferol (vitamin D3) 50 mcg PO DAILY 90 days fluoxetine 20 mg PO QAM hydrochlorothiazide 12.5 mg PO QAM 90 days lidocaine 5% 1 patch topical DAILY lorazepam 0.5 mg PO BID-TID PRN 30 days losartan 100 mg PO DAILY magnesium oxide 1,200 mg PO BID metoprolol tartrate 50 mg PO BID mirtazapine 7.5 mg PO BEDTIME 30 days nabumetone 500 mg PO BID PRN 30 days omeprazole 20 mg PO DAILY potassium chloride ER (Klor-Con M) 10 mEq PO DAILY tizanidine 4 mg PO TID PRN Tobacco use date assessed: 12/13/23 Fall risk assessment: No Falls in past year Dental Screening Dental Screen Date: 12/13/23 Did you have a dental visit in the last 12 months?: No Did you have a dental problem in the last 6 months where you did not have access to dental care?: No Was dental information given to patient?: No HPI hyperlipidemia, HTN, IFG, anxiety HPI Details Patient comes in today for her follow up visit States that she feels okay She denies any headaches or dizziness Denies any chest pains, no SOB No nausea/vomiting, no abdominal pain No change in bowel habits noted States that she again needs her Lorazepam Rx refilled She had her follow up labs done a couple of weeks ago - to discuss her results [facility] Medical History Vitamin D deficiency Arthralgia Obesity (BMI 30-39.9) Depression Anxiety Primary osteoarthritis of both knees Gastritis Hypomagnesemia Hypokalemia Impaired fasting glucose Pure hypercholesterolemia Benign essential hypertension Surgical History Status post colonoscopy (~07/30/19) History of tubal ligation History of cholecystectomy Family History Father Medical history unknown Mother Colon cancer Social History Housing: Apartment Alcohol intake: current Alcohol intake frequency: holidays/special occasions only Patient Tobacco Use Status: Former Tobacco user e-Cigarette/Vaping Use: Never Used Second Hand Smoke Exposure: Yes service: No Current occupational status: disabled Cognitive needs: No Hearing needs: No Vision needs: Yes Questionnaire PHQ-9 Over the last 2 weeks, how often have you been bothered by any of the following problems? 1. Little interest or pleasure in doing things: several days 2. Feeling down, depressed, or hopeless: several days 3. Trouble falling or staying asleep, or sleeping too much: several days 4. Feeling tired or having little energy: several days 5. Poor appetite or overeating: several days 6. Feeling bad about yourself - or that you are a failure or have let yourself or your family down: not at all 7. Trouble concentrating on things, such as reading the newspaper or watching television: not at all 8. Moving or speaking so slowly that other people could have noticed. Or the opposite - being so fidgety or restless that you have been moving around a lot more than usual: not at all 9. Thoughts that you would be better off or of hurting yourself in some way: not at all Total score: 5 Depression Screening Interpretation: Positive Depression Screening Follow-up: Existing condition and In treatment Depression Screening Done: Yes 00017 - PHQ-9 Billing: Yes Source: Developed by Drs. Abrahan Bob, Jennifer Amador, Mike Alvarez and colleagues, with an educational courtney from [employer]. Thrive Questionnaire Date Thrive assessed: 12/13/23 I am a: Patient What is your living situation today?: I have a steady place to live Within the past 12 months, did the food you bought not last and you didn't have the money to get more?: Never true Within the past 12 months, did you worry whether your food would run out before you got money to buy more?: Never true Do you have trouble paying for medicines?: No Do you have trouble getting transportation to medical appointments?: No Do you have trouble paying your heating and electricity bill?: No Do you have trouble taking care of your child, family member or friend?: No Do you have trouble with day-to-day activities such as bathing, preparing meals, shopping, managing finances, etc.?: No Are you currently unemployed and looking for a job?: No Are you interested in more education?: No Please select the resources that you would like help with: None Currently or been in a relationship where the following occur: No concerns reported THRIVE Score: 0 AUDIT C Alcohol Use Questionnaire (AUDIT-C) 1. How often do you have a drink containing alcohol?: Never 3. How often do you have six or more drinks on one occasion?: Never Total Score: 0 Score Reviewed/Action Taken: Yes KEIRA-7 AMB Questionnaire KEIRA-7 Date KEIRA - 7 assessed: 12/13/23 Feeling nervous, anxious, or on edge: 0 = Not at all Not being able to stop or control worryin = Not at all Worrying too much about different things: 0 = Not at all Trouble relaxin = Not at all Being so restless that it is hard to sit still: 0 = Not at all Becoming easily annoyed or irritable: 0 = Not at all Feeling afraid as if something awful might happen: 0 = Not at all Total KEIRA-7 score (0-4 normal; 5-9 mild; 10-14 moderate; 15-21 severe): 0 Source: Developed by Drs. Abrahan Bob, Jennifer Amador, Mike Alvarez and colleagues, with an educational courtney from [employer]. Review of Systems Const Denies chills, Denies fatigue, Denies fever(s) and Denies headache(s) ENT Denies dysphagia, Denies dizziness, Denies otalgia, Denies headache(s), Denies neck pain, Denies odynophagia and Denies sore throat Card Denies chest pain, Denies irregular heart rhythm, Denies palpitations and Denies dyspnea Resp Denies chest congestion, Denies cough and Denies dyspnea GI Denies abdominal pain, Denies constipation, Denies dysphagia, Denies diarrhea, Denies nausea, Denies odynophagia and Denies vomiting Denies difficulty voiding, Denies dysuria and Denies urinary urgency Musc Denies back pain and Denies neck pain Skin/Breast Denies rash Neuro Denies dizziness and Denies headache(s) Psych Reports anxiety (controlled on Rx) Endo Denies fatigue and Denies palpitations Physical exam (Primary Care) Vital Signs: Last Vital Signs Pulse 92 12/13/23 10:49 BP 124/78 12/13/23 10:49 Pulse Ox 97 12/13/23 10:49 Oxygen Delivery Method Room Air 12/13/23 10:49 BMI result Body Mass Index 31.6 Tobacco/Smoking Status: Tobacco use Status Tobacco use date assessed 12/13/23 12/13/23 10:54 Patient Tobacco Use Status Former Tobacco user 12/13/23 10:52 e-Cigarette/Vaping Use Never Used 12/13/23 10:52 PHQ-9: PHQ-9 Score PHQ-9: Total score 5 12/13/23 11:01 Depression Screening Interpretation: Positive Depression Screening Follow-up: Existing condition and In treatment Thrive Assessment: Date of Thrive Assessment Date Thrive assessed 12/13/23 12/13/23 10:54 Currently or been in a relationship where the following occur: No concerns reported Const General: no acute distress and alert HENMT Ears: TM's normal bilaterally and EAC's normal Throat: Yes posterior oropharynx normal and Yes tonsils normal (no TP congestion) Neck Neck: Yes no lymphadenopathy and Yes supple Thyroid: Thyroid normal Resp Auscultation: clear to auscultation bilaterally, no rales and no wheezes Cardio Rate: regular rate Rhythm: regular rhythm Heart sounds: no murmurs GI Palpation (GI): Soft to palpation and nontender Auscultation: normal bowel sounds General: Yes no CVA tenderness Back/Spine/Pelvis Back: no CVA tenderness Thoracic/Lumbar Spine: No lumbar spinal tenderness Skin Rashes: no rashes Extrem General: Yes no clubbing, cyanosis or edema Right lower extremity: knee Details: tenderness and crepitus; no swelling Left lower extremity: knee Details: tenderness and crepitus; no swelling Office Procedures Flu Questionnaire Does the patient have a severe egg allergy?: No Immunizations Fluarix Triv [id number] (PF) 45 mcg (15 mcg x 3)/0.5 mL IM syringe Performing Provider: Jatinder Amado MD [place] [place] [facility] Documented (not given) by: SHERYL Gutierrez on 12/13/23 11:01 Reason Not Given: Patient Refused Results Reviewed Results Reviewed: Laboratory Tests 12/03/23 12/03/23 08:21 08:30 WBC 5.0 Hgb 13.9 Hct 40.6 Plt Count 230 Sodium 141 Potassium 4.3 Creatinine 0.95 Estimated GFR 59 Fasting Glucose 130 H Hemoglobin A1c % 5.4 Calcium 10.2 AST 30 ALT 32 H Triglycerides 135 Cholesterol 176 LDL Cholesterol, Calc 91 HDL Cholesterol 58 25-OH Vitamin D Total 57.3 TSH 2.92 Ur Specific [place] 1.025 Urine Protein Negative Urine Glucose (UA) Negative Urine Blood Negative Urine Nitrite Negative Ur Leukocyte Esterase Small (1+) H Laboratory Tests 12/03/23 08:30 Magnesium 1.6 Coding Level of Care Code Est Pt Level 4 (07896) Diagnoses Pure hypercholesterolemia E78.00 Benign essential hypertension I10 Impaired fasting glucose R73.01 Hypomagnesemia E83.42 Hypokalemia E87.6 Gastritis without bleeding, unspecified chronicity, unspecified gastritis type K29.70 Gastritis type: unspecified gastritis Chronicity: unspecified Gastritis bleeding: without bleeding Vitamin D deficiency E55.9 Primary osteoarthritis of both knees M17.0 Anxiety F41.9 Episode of recurrent major depressive disorder, unspecified depression episode severity F33.9 Depression Type: major depressive disorder Major depression recurrence: recurrent Active/Remission status: currently active Major depression episode severity: unspecified Obesity (BMI 30-39.9) E66.9 Assessment & Plan Assessment & Plan (1) Pure hypercholesterolemia: Code(s): E78.00 - Pure hypercholesterolemia, unspecified Category: Medical Plan: Results of her labs done a couple of weeks ago reviewed and discussed with patient Reinforced low cholesterol diet Continue Atorvastatin 20 mg QD Will recheck her labs and fasting lipids in 4 months for follow up (2) Benign essential hypertension: Code(s): I10 - Essential (primary) hypertension Category: Medical Plan: Reinforced low sodium diet - goal is systolic BP of at least 130 mm or less Continue Losartan 100 mg QD, Metoprolol 50 mg BID and HCTZ 12.5 mg QD (3) Impaired fasting glucose: Code(s): R73.01 - Impaired fasting glucose Category: Medical Plan: Her HgbA1c remained normal at 5.4% on her labs done a couple of weeks ago even though her FBS is still elevated at 130 mg/dl Reinforced low calorie diet/exercise as tolerated Will continue to monitor her FBS and HgbA1c regularly (4) Hypomagnesemia: Code(s): E83.42 - Hypomagnesemia Category: Medical Plan: Her serum magnesium level is normal on her recent labs but is at the lower limits of the normal range (1.6) Continue Magnesium tablets 1200 mg BID Will continue to monitor her serum magnesium level regularly (5) Hypokalemia: Code(s): E87.6 - Hypokalemia Category: Medical Plan: Corrected - serum potassium level has been normal for a while now; will continue to monitor this regularly (6) Gastritis: Code(s): K29.70 - Gastritis, unspecified, without bleeding Category: Medical Qualifiers: Gastritis type: unspecified gastritis Chronicity: unspecified Gastritis bleeding: without bleeding Qualified Code(s): K29.70 - Gastritis, unspecified, without bleeding Plan: Reinforced dietary restrictions Continue Omeprazole 20 mg QD (7) Vitamin D deficiency: Code(s): E55.9 - Vitamin D deficiency, unspecified Category: Medical Plan: Continue Vitamin D3 2000 units QD (8) Primary osteoarthritis of both knees: Code(s): M17.0 - Bilateral primary osteoarthritis of knee Category: Medical Plan: Knee x-rays done a couple of years ago revealed (+) OA changes bilaterally Follow up with orthopedics as scheduled (9) Anxiety: Code(s): F41.9 - Anxiety disorder, unspecified Category: Medical Plan: Continue Lorazepam 0.5 mg 2 to 3 times a day as needed for increased anxiety - Rx refilled (10) Depression: Code(s): F32.9 - Major depressive disorder, single episode, unspecified Category: Medical Qualifiers: Depression Type: major depressive disorder Major depression recurrence: recurrent Active/Remission status: currently active Major depression episode severity: unspecified Qualified Code(s): F33.9 - Major depressive disorder, recurrent, unspecified Plan: Continue Fluoxetine 20 mg QD and Mirtazapine 7.5 mg Q HS (11) Obesity (BMI 30-39.9): Code(s): E66.9 - Obesity, unspecified Category: Medical Plan: Reinforced diet/exercise as tolerated/lose weight Plan Follow up in 4 months Orders: Orders Influenza [id number] Immunization Today Z23 - Encounter for immunization Comprehensive [place]. Panel Fast 4 Months E78.00 - Pure hypercholesterolemia, unspecified Vitamin D 25-OH Total 4 Months E55.9 - Vitamin D deficiency, unspecified Vitamin B12 and Folate 4 Months E53.8 - Deficiency of other specified B group vitamins Magnesium 4 Months E83.42 - Hypomagnesemia Hemoglobin A1c 4 Months R73.01 - Impaired fasting glucose, R73.9 - Hyperglycemia, unspecified Complete Blood Count Auto Diff 4 Months D64.9 - Anemia, unspecified Lipid Panel 4 Months E78.00 - Pure hypercholesterolemia, unspecified TSH reflex Free T4 4 Months E78.00 - Pure hypercholesterolemia, unspecified UA CC w/rflx Micro + Cult 4 Months R30.0 - Dysuria Medications: Refilled lorazepam 0.5 mg PO BID-TID 30 days PRN 90 tabs 0RF anxiety
== END 2023-12-13 11:26 | disposition home or self-care (01) ==
LOC: HO.HMCH 10:48
PROVIDERS: PCP Internal Medicine; Visit Provider Internal Medicine
DX: E78.00 Pure hypercholesterolemia, unspecified (principal); F33.9 Major depressive disorder, recurrent, unspecified; E66.9 Obesity, unspecified; Z68.31 Body mass index [BMI] 31.0-31.9, adult; I10 Essential (primary) hypertension; R73.01 Impaired fasting glucose; E83.42 Hypomagnesemia; E87.6 Hypokalemia; K29.70 Gastritis, unspecified, without bleeding; E55.9 Vitamin D deficiency, unspecified; M17.0 Bilateral primary osteoarthritis of knee; F41.9 Anxiety disorder, unspecified

== ENCOUNTER → 2023-12-13 10:48 | Outpatient (BNVA) | payer OTHER, SELFPAY | PROVIDERS: PCP Internal Medicine; Visit Provider Internal Medicine | DX: E78.00 Pure hypercholesterolemia, unspecified (principal); I10 Essential (primary) hypertension; R73.01 Impaired fasting glucose; E83.42 Hypomagnesemia; E87.6 Hypokalemia; K29.70 Gastritis, unspecified, without bleeding; M17.0 Bilateral primary osteoarthritis of knee; F41.9 Anxiety disorder, unspecified; F33.9 Major depressive disorder, recurrent, unspecified; E66.9 Obesity, unspecified | CPT/HCPCS: 96127; 99212 ==

== ENCOUNTER 2024-01-13 08:39 | Emergency (ER) | payer OTHER, SELFPAY ==
--- NOTE | ~2024-01-13 | XR_ITS ---
EXAMINATION: XR CHEST 2 VIEW CLINICAL INFORMATION: Productive cough COMPARISON: 04-26 TECHNIQUE: PA and lateral views of the chest obtained. FINDINGS: The lungs are clear. There are no pleural effusions. The cardiomediastinal silhouette is normal. XR/XR chest 2V IMPRESSION: No acute cardiopulmonary disease. Electronically signed by: Jonathan Cancino MD 01/13/2024 09:25 AM [facility] [place]
[2024-01-13 08:52] VITALS: BP 139/90; PULSE 83; RESP 18; TEMP 36.3; O2SAT 96; BMI 33.2
--- NOTE | 2024-01-13 08:54 | ECG_ITS ---
Test Reason : CWP Blood Pressure : / mmHG Vent. Rate : 077 BPM Atrial Rate : 077 BPM P-R Int : 116 ms QRS Dur : 074 ms QT Int : 358 ms P-R-T Axes : 000 153 140 degrees QTc Int : 405 ms Limb leads reversal Normal sinus rhythm Right axis deviation Abnormal ECG When compared with ECG of 07-MAR-2017 20:37, QRS axis Shifted right QT has shortened Referred By: Generic ED Physician Electronically Signed By:Mendoza Apple
--- NOTE | 2024-01-13 09:15 | ED_ITS ---
HPI - URI/Sore Throat General Chief Complaint: Upper Respiratory Symptoms Stated Complaint: Cold symptons Time Seen by Provider: 01/13/24 09:07 Source: patient Mode of arrival: ambulatory Limitations: no limitations History of Present Illness ED Provider: Samson Trinidad PA-C HPI Narrative: 69 yo Danish speaking female with history of anxiety, depression, osteoarthritis, obesity, HTN, HLD, gastritis who presents to the ER for evaluation of sore throat, nasal congestion, sinus pressure and pain for the last 8-9 days. She states she has had pain and pressure in her face, green nasal discharge, sore throat and pain with swallowing. She has had an intermittently productive cough that is slowly getting better. When she coughs she has pain in the upper portions of her chest. Also hurts when she touches her chest wall. She is also having a headache, chills. No known sick contacts. No fevers at home. No difficulty breathing, shortness of breath, abdominal pain, nausea, vomiting, diarrhea. MD elicited complaint: cough, sore throat, nasal congestion and sinus pain Onset (ago): day(s) (9) Consistency: progressively worsening Severity: moderate Description of mucous: green Able to tolerate fluids by mouth: Yes Exacerbating factors: swallowing Relieving factors: OTC cold medicine Associated symptoms: chills, headache, rhinorrhea, nasal congestion, sore throat, cough and chest pain Treatments prior to arrival: none Related Data Home Medications ?Medication ?Instructions ?Recorded ?Confirmed magnesium oxide 1,200 mg PO BID 03/21/20 12/13/23 Previous Rx's ?Medication ?Instructions ?Recorded nabumetone 500 mg tablet 500 mg PO BID PRN joint pain 30 10/17/20 days #60 tabs lidocaine 5 % topical patch 1 patch topical DAILY #30 ea 08/31/22 cholecalciferol (vitamin D3) 50 50 mcg PO DAILY 90 days #90 caps 03/30/23 mcg (2,000 unit) capsule potassium chloride 10 mEq 10 meq PO DAILY #90 tabs 03/31/23 tablet,extended release(part/cryst) (Klor-Con M) hydrochlorothiazide 12.5 mg tablet 12.5 mg PO QAM 90 days #90 tabs 09/24/23 omeprazole 20 mg capsule,delayed 20 mg PO DAILY #90 caps 09/24/23 release fluoxetine 20 mg capsule 20 mg PO QAM #90 caps 09/28/23 tizanidine 4 mg tablet 4 mg PO TID PRN for muscle spasm 10/06/23 #270 tabs losartan 100 mg tablet 100 mg PO DAILY #90 tabs 10/19/23 mirtazapine 7.5 mg tablet 7.5 mg PO BEDTIME 30 days #30 tabs 11/09/23 lorazepam 0.5 mg tablet 0.5 mg PO BID-TID PRN anxiety 30 12/13/23 days #90 tabs metoprolol tartrate 50 mg tablet 50 mg PO BID #180 tabs 12/18/23 atorvastatin 20 mg tablet 20 mg PO DAILY 90 days #90 tabs 01/08/24 amoxicillin 875 mg-potassium 1 tab PO BID #14 tabs 01/13/24 clavulanate 125 mg tablet fluticasone propionate 50 2 spray intranasal DAILY #16 grams 01/13/24 mcg/actuation nasal spray,suspension (Flonase Allergy Relief) Allergies Allergy/AdvReac Type Severity Reaction Status Date / Time nitroglycerin [NITROGLYCERIN] Allergy Severe NAUSEA, Verified 01/13/24 08:52 NUMBNESS IN MOUTH, burning Review of Systems 2 Review of Systems: Yes all other systems are reviewed and are negative PMFSH Past Medical History Medical History Vitamin D deficiency Arthralgia Obesity (BMI 30-39.9) Depression Anxiety Primary osteoarthritis of both knees Gastritis Hypomagnesemia Hypokalemia Impaired fasting glucose Pure hypercholesterolemia Benign essential hypertension Surgical History Status post colonoscopy (~07/30/19) History of tubal ligation History of cholecystectomy Family History Family History Father Medical history unknown Mother Colon cancer Social History Social History Housing: Apartment Alcohol intake: current Alcohol intake frequency: holidays/special occasions only Patient Tobacco Use Status: Former Tobacco user e-Cigarette/Vaping Use: Never Used Second Hand Smoke Exposure: Yes Advance Directives: No Advance Directives Information Provided: Yes service: No Current occupational status: disabled Cognitive needs: No Hearing needs: No Vision needs: Yes Physical Exam 2 Vital Signs: Vital Signs: Last Vital Signs Temp 97.4 F 01/13/24 08:52 Pulse 83 01/13/24 08:52 Resp 18 01/13/24 08:52 BP 139/90 H 01/13/24 08:52 Pulse Ox 96 01/13/24 08:52 O2 Del Method Room Air 01/13/24 08:52 BMI result Body Mass Index 33.2 Appearance: Alert. Oriented X3. No acute distress. Head: normocephalic, atraumatic. Eyes: Pupils equal, round and reactive to light. ENT: Pharynx with mild to moderate posterior pharyngeal erythema, uvula midline.No tonsillar swelling or exudate. Normal voice, handling secretions normally. Normal appearance of the tympanic membranes bilaterally Neck: Normal inspection. Neck supple. no lymphadenopathy CVS: Normal heart rate and rhythm. Pulses normal. Respiratory: No respiratory distress. Breath sounds normal. Anterior chest wall tenderness on the left side Abdomen: obese,Soft and nontender. +BS x4 Skin: Skin warm and dry. Normal skin color. Normal skin turgor. No rashes. Extremities: No lower extremity edema. No joint swelling. Neuro/psych: Oriented X 3. grossly normal, nonfocal. CN II-XII intact. Normal speech and cognition. Medical Decision Making Medical Decision Making MDM Narrative: 69-year-old female presenting to the ER for evaluation of URI symptoms for the last 8 or 9 days. She was also reporting chest wall pain which prompted an EKG to be performed from triage. This showing normal sinus rhythm, there are 2 new T-wave inversions in leads 1 and aVL only, no ST segment elevations or depressions. On examination her chest pain is reproducible and seems muscular in nature, low suspicion for ACS or PE lab workup was reassuring with no leukocytosis, no anemia. Troponin was negative. Chest x-ray was clear, no evidence of pneumonia. Her vital signs remained stable. She tested negative for COVID, flu, RSV. Will treat for sinusitis with oral antibiotics and nasal spray. Patient counseled on diagnosis, treatment return precautions. Stable for discharge home. Encouraged outpatient follow-up with PCP. Differential Diagnosis Differential Diagnoses: The differential diagnosis associated with the presentation includes strep, covid, flu, rsv, other viral syndrome, bronchitis, pneumonia, sinusitis, low suspicion for cardiac etiology Admission/Observation Consideration of admission/observation: Escalation of care including admission/observation considered workup reassuring, comfortable d/c home. noncardiac chest discomfort Lab Data MDM Lab Attestation statement: I reviewed the patient's lab results. no leukocytosis, no anemia, neg trop 01/13/24 10:00 01/13/24 10:00 Labs: Lab Results 01/13/24 01/13/24 Range/Units 09:34 10:00 WBC 9.1 (4.8-10.8) X10*3/uL RBC 4.61 (4.20-5.50) X10*6/uL Hgb 14.0 (12.0-16.0) g/dl Hct 40.0 (37.0-47.0) % MCV 86.8 (80.0-98.0) fL MCH 30.4 (27.0-33.0) pg MCHC 35.0 (31.0-35.0) g/dl RDW 12.1 (11.0-16.0) % Plt Count 268 (160-400) X10*3/uL MPV 10.0 (9.4-12.3) fL Immature Gran % (Auto) 0.2 (0.0-0.4) % Neut % (Auto) 69.8 (45-73) % Lymph % (Auto) 19.3 L (20-40) % [place] % (Auto) 8.5 (2-11) % Eos % (Auto) 1.5 (0-4) % Baso % (Auto) 0.7 (0-2) % Lymph # (Auto) 1.8 (1.2-4.9) X10*3/uL [place] # (Auto) 0.8 (0.1-1.2) X10*3/uL Eos # (Auto) 0.1 (0.0-0.4) X10*3/uL Baso # (Auto) 0.1 (0.0-0.2) X10*3/uL Abs Immat Gran (auto) 0.02 (0.00-0.03) X10*3/uL Absolute Neuts (auto) 6.4 (2.0-8.3) x10*3/uL Absolute Nucleated RBC 0.000 (0.0-0.012) X10*3/uL Nucleated RBC % (auto) 0.0 (0.0-0.2) /100WBC Sodium 138 (135-145) mmol/L Potassium 4.1 (3.3-5.1) mmol/L Chloride 105 (96-108) mmol/L Carbon Dioxide 25 (22-29) mmol/L Anion Gap 12 (12-20) BUN 11 (9-16) mg/dL Creatinine 0.88 (0.5-1.4) mg/dL Estim Creat Clear Calc 59.2 Estimated GFR > 60 Random Glucose 133 H (60-115) mg/dL Calcium 10.0 (8.4-10.2) mg/dL Magnesium 1.6 (1.6-2.6) mg/dL Troponin I High Sens 3.4 (<3.5-17.0) ng/L Influenza Type A (PCR) NEGATIVE (Negative) Influenza Type B (PCR) NEGATIVE (Negative) RSV RNA Qual (PCR) NEGATIVE (Negative) SARS-CoV-2 RNA (RT-PCR) NEGATIVE (Negative) Independent Interpretation I performed an independent interpretation of an: EKG and Plain X-Ray Interpretation: EKG with normal sinus rhythm, ventricular rate 77 beats per minute, T-wave inversion in leads 1 and aVL, no ST segment elevations or depressions, normal CA interval, normal QTC chest x-ray is clear without focal infiltrate or effusion Radiology Impression Discussion of test interpretation with radiology: I have reviewed the radiologist's reading. Radiologist Impression: EXAMINATION: XR CHEST 2 VIEW CLINICAL INFORMATION: Productive cough COMPARISON: 3 18 TECHNIQUE: PA and lateral views of the chest obtained. FINDINGS: The lungs are clear. There are no pleural effusions. The cardiomediastinal silhouette is normal. XR/XR chest 2V IMPRESSION: No acute cardiopulmonary disease. Independent Historian Clinical information obtained from an independent historian. History obtained from or confirmed by: Other ( adult daughter at the bedside) External Record Review External record reviewed: Outpatient record, Prior outpatient labs and Prior outpatient radiology Prescription Management I considered prescription management with: Pain Medication and Antibiotic Chronic Conditions Patient?s care impacted by: Hypertension Critical Care Time Critical Care Time Critical Care Time: No Discharge Plan Discharge Clinical Impression: Sinusitis Qualifiers: Sinusitis location: other Chronicity: unspecified Qualified Code(s): J32.9 - Chronic sinusitis, unspecified Patient Disposition: Home, Self-Care Instructions: Sinusitis (ED) Additional Instructions: your workup today was reassuring you tested negative for covid, flu and rsv Take the prescribed antibiotics as directed, complete the entire course and do not miss any doses use the prescribed nose spray rest and drink plenty of fluids take over the counter cold/flu medications as needed for your other symptoms take motrin and tylenol as needed for pain and headache follow up with your doctor If you develop new or worsening symptoms call 911 or come back to the ER for further evaluation. Prescriptions: New amoxicillin-pot clavulanate 875-125 mg tablet 1 tab PO BID Qty: 14 0RF fluticasone propionate [Flonase Allergy Relief] 50 mcg/actuation spray,suspension 2 spray intranasal DAILY Qty: 16 0RF Rx Instructions: administer into each nostril No Action lidocaine 5 % adhesive patch,medicated 1 patch topical DAILY Qty: 30 2RF Rx Instructions: leave on most painful area for up to 12 hrs cholecalciferol (vitamin D3) 50 mcg (2,000 unit) capsule 50 mcg PO DAILY 90 Days Qty: 90 3RF potassium chloride [Klor-Con M10] 10 mEq tablet,ER particles/crystals 10 meq PO DAILY Qty: 90 5RF omeprazole 20 mg capsule,delayed release(DR/EC) 20 mg PO DAILY Qty: 90 2RF hydrochlorothiazide 12.5 mg tablet 12.5 mg PO QAM 90 Days Qty: 90 1RF fluoxetine 20 mg capsule 20 mg PO QAM Qty: 90 0RF tizanidine 4 mg tablet 4 mg PO TID PRN (Reason: for muscle spasm) Qty: 270 1RF losartan 100 mg tablet 100 mg PO DAILY Qty: 90 1RF mirtazapine 7.5 mg tablet 7.5 mg PO BEDTIME 30 Days Qty: 30 1RF metoprolol tartrate 50 mg tablet 50 mg PO BID Qty: 180 0RF atorvastatin 20 mg tablet 20 mg PO DAILY 90 Days Qty: 90 1RF nabumetone 500 mg tablet 500 mg PO BID PRN (Reason: joint pain) 30 Days Qty: 60 2RF Rx Instructions: Take with food as needed magnesium oxide 400 mg magnesium tablet 1,200 mg PO BID lorazepam 0.5 mg tablet 0.5 mg PO BID-TID PRN (Reason: anxiety) 30 Days Qty: 90 0RF Referrals: Jatinder Amado MD [Primary Care Provider] - Print Language: Danish
[2024-01-13 10:04] LABS: MANUAL DIFF FLAG NO
[2024-01-13 10:06] LABS: Basophils Absolute Auto 0.1 X10*3/uL (0.0-0.2); Basophils Percent Auto 0.7 % (0-2); Eosinophils Absolute Auto 0.1 X10*3/uL (0.0-0.4); Eosinophils Percent Auto 1.5 % (0-4); Imm Gran Abs Auto 0.02 X10*3/uL (0.00-0.03); Imm Gran Pct Auto 0.2 % (0.0-0.4); Lymphocytes Absolute Auto 1.8 X10*3/uL (1.2-4.9); Lymphocytes Percent Auto 19.3 % (20-40); Mean Corpuscular Hemoglobin 30.4 pg (27.0-33.0); Mean Corpuscular Volume 86.8 fL (80.0-98.0); Monocytes Absolute Auto 0.8 X10*3/uL (0.1-1.2); Monocytes Percent Auto 8.5 % (2-11); Neutrophils Absolute Auto 6.4 x10*3/uL (2.0-8.3); Neutrophils Percent Auto 69.8 % (45-73); Platelet Count 268 X10*3/uL (160-400); Red Blood Count 4.61 X10*6/uL (4.20-5.50); Red Cell Distribution Width 12.1 % (11.0-16.0); White Blood Count 9.1 X10*3/uL (4.8-10.8)
[2024-01-13 10:30] LABS: Anion Gap 12 (12-20); Blood Urea Nitrogen 11 mg/dL (9-16); Carbon Dioxide 25 mmol/L (22-29); Chloride 105 mmol/L (96-108); Creatinine Clr Calc Pharmacy 59.2; Estimated Glomerular Filt Rate > 60; Glucose Random 133 mg/dL (60-115); Magnesium 1.6 mg/dL (1.6-2.6); Potassium 4.1 mmol/L (3.3-5.1); Sodium 138 mmol/L (135-145)
[2024-01-13 10:40] LABS: Troponin-I High Sensitivity 3.4 ng/L (<3.5-17.0)
[2024-01-13 10:41] LABS: Influenza A PCR NEGATIVE (Negative); Influenza B PCR NEGATIVE (Negative); Resp Syncy Virus RNA Qual PCR NEGATIVE (Negative); SARS COV2 PCR INHOUSE NEGATIVE (Negative)
[2024-01-13 11:09] VITALS: BP 124/63; PULSE 78; RESP 13; TEMP 37.1; O2SAT 95
[2024-01-13 11:36] VITALS: BP 124/63; PULSE 78; RESP 13; TEMP 37.1; O2SAT 95
== END 2024-01-13 11:37 | disposition home or self-care (01) ==
PROVIDERS: Physician Assistant; Emergency Provider Emergency Medicine Emergency Medical Services; PCP Internal Medicine
DX: J32.9 Chronic sinusitis, unspecified (principal); Z03.818 Encounter for observation for suspected exposure to other biological agents ruled out; R05.9 Cough, unspecified; I10 Essential (primary) hypertension; E78.5 Hyperlipidemia, unspecified; E78.00 Pure hypercholesterolemia, unspecified; Z87.891 Personal history of nicotine dependence
CPT/HCPCS: 0241U; 36415; 71046; 80048; 83735; 84484; 85025; 93005; 99283; 99284

== ENCOUNTER → 2024-01-13 08:54 | Outpatient (BNV) | payer OTHER, SELFPAY | PROVIDERS: Emergency Provider Emergency Medicine Emergency Medical Services; PCP Internal Medicine; Visit Provider Internal Medicine Cardiovascular Disease | DX: R94.31 Abnormal electrocardiogram [ECG] [EKG] (principal) | CPT/HCPCS: 93010 ==

== ENCOUNTER 2024-04-11 08:44 | Outpatient (REF) | payer OTHER, SELFPAY ==
[2024-04-11 09:18] LABS: MANUAL DIFF FLAG NO
[2024-04-11 09:56] LABS: Basophils Percent Auto 0.8 % (0-2); Eosinophils Absolute Auto 0.1 X10*3/uL (0.0-0.4); Eosinophils Percent Auto 1.5 % (0-4); Hematocrit 40.9 % (37.0-47.0); Imm Gran Abs Auto 0.01 X10*3/uL (0.00-0.03); Imm Gran Pct Auto 0.2 % (0.0-0.4); Lymphocytes Absolute Auto 1.6 X10*3/uL (1.2-4.9); Lymphocytes Percent Auto 34.2 % (20-40); Mean Corpuscular HGB Conc 34.2 g/dl (31.0-35.0); Mean Corpuscular Hemoglobin 29.6 pg (27.0-33.0); Mean Corpuscular Volume 86.5 fL (80.0-98.0); Mean Platelet Volume 10.3 fL (9.4-12.3); Monocytes Absolute Auto 0.4 X10*3/uL (0.1-1.2); Neutrophils Absolute Auto 2.6 x10*3/uL (2.0-8.3); Neutrophils Percent Auto 55.3 % (45-73); Platelet Count 269 X10*3/uL (160-400); Red Blood Count 4.73 X10*6/uL (4.20-5.50); Red Cell Distribution Width 12.2 % (11.0-16.0); White Blood Count 4.8 X10*3/uL (4.8-10.8)
[2024-04-11 10:11] LABS: Estimated Average Glucose 100 mg/dL; Hemoglobin A1C 118.3621 umol/L; Hemoglobin A1c % 5.1 % (<6.0); Total Hemoglobin (HGBA1C) 3677.1731 umol/L
[2024-04-11 10:11] LABS: Appearance Urine Clear; Color Urine Yellow; Glucose Urine UA Negative (Negative); Leukocyte Esterase Urine Negative (Negative); Nitrite Urine Negative (Negative); Urine Blood Negative (Negative); Urine Ketones Negative (Negative); Urine Protein Negative (Neg-Trace)
[2024-04-11 10:30] LABS: Alanine Aminotransferase 27 U/L (0-31); Albumin Level 4.5 g/dL (3.5-5.0); Alkaline Phosphatase 113 U/L (39-117); Anion Gap 12 (12-20); Aspartate Amino Transferase 26 U/L (5-31); Bilirubin Total 0.6 mg/dL (0.0-1.0); Blood Urea Nitrogen 10 mg/dL (9-16); Calcium 9.8 mg/dL (8.4-10.2); Carbon Dioxide 30 mmol/L (22-29); Chloride 102 mmol/L (96-108); Cholesterol 168 mg/dL (<200); Estimated Glomerular Filt Rate > 60; Glucose Fasting 116 mg/dL (60-99); HDL Cholesterol 65 mg/dL (>40); LDL Cholesterol Calculated 85 mg/dL (<100); Magnesium 1.7 mg/dL (1.6-2.6); Sodium 140 mmol/L (135-145); Total Protein 7.9 g/dL (6.5-8.0); Triglycerides 91 mg/dL (<150)
[2024-04-11 10:54] LABS: TSH reflex Free T4 1.79 uIU/mL (0.32-4.0)
[2024-04-11 11:05] LABS: Folate 13.8 ng/mL (> or = 4.0); Vitamin B12 426 pg/mL (200-900)
== END 2024-04-11 08:45 | disposition home or self-care (01) ==
LOC: HO.LAB 08:44
PROVIDERS: PCP Internal Medicine; Visit Provider Internal Medicine
DX: D64.9 Anemia, unspecified (principal); R30.0 Dysuria; E83.42 Hypomagnesemia; R73.01 Impaired fasting glucose; R73.9 Hyperglycemia, unspecified; E78.00 Pure hypercholesterolemia, unspecified; E53.8 Deficiency of other specified B group vitamins
CPT/HCPCS: 36415; 80053; 80061; 81003; 82306; 82607; 82746; 83036; 83735; 84443; 85025

== ENCOUNTER 2024-04-23 10:48 | Outpatient (REF) | payer OTHER, SELFPAY ==
[2024-04-23 11:31] LABS: MANUAL DIFF FLAG NO
[2024-04-23 12:16] LABS: Basophils Absolute Auto 0.1 X10*3/uL (0.0-0.2); Basophils Percent Auto 0.9 % (0-2); Eosinophils Percent Auto 0.5 % (0-4); Hematocrit 43.6 % (37.0-47.0); Hemoglobin 15.2 g/dl (12.0-16.0); Imm Gran Abs Auto 0.01 X10*3/uL (0.00-0.03); Imm Gran Pct Auto 0.2 % (0.0-0.4); Lymphocytes Absolute Auto 1.7 X10*3/uL (1.2-4.9); Lymphocytes Percent Auto 27.4 % (20-40); Mean Corpuscular HGB Conc 34.9 g/dl (31.0-35.0); Mean Corpuscular Volume 86.2 fL (80.0-98.0); Mean Platelet Volume 10.6 fL (9.4-12.3); Monocytes Absolute Auto 0.5 X10*3/uL (0.1-1.2); Monocytes Percent Auto 7.3 % (2-11); Neutrophils Percent Auto 63.7 % (45-73); Platelet Count 283 X10*3/uL (160-400); Red Blood Count 5.06 X10*6/uL (4.20-5.50); Red Cell Distribution Width 12.2 % (11.0-16.0); White Blood Count 6.3 X10*3/uL (4.8-10.8)
[2024-04-23 12:27] LABS: Influenza A PCR NEGATIVE (Negative); Influenza B PCR NEGATIVE (Negative); Resp Syncy Virus RNA Qual PCR NEGATIVE (Negative); SARS COV2 PCR INHOUSE NEGATIVE (Negative)
[2024-04-23 12:30] LABS: Appearance Urine Cloudy; Color Urine Yellow; Glucose Urine UA Negative (Negative); Leukocyte Esterase Urine Moderate (2+) (Negative); Nitrite Urine Negative (Negative); PH 5.5 (5.0-9.0); Specific Gravity - Urine 1.015 (1.005-1.025); UMIC TRIGGER UACC YES; Urine Blood Negative (Negative); Urine Ketones 15 mg/dL (Negative); Urine Protein Negative (Neg-Trace)
[2024-04-23 12:33] LABS: Bacteria Urine Trace (None Seen); Hyaline Casts Urine 0-2 /LPF (0-2); RBC Urine 0-2 /HPF (0-2); UACC Culture Trigger YES
[2024-04-23 13:12] LABS: TSH reflex Free T4 1.38 uIU/mL (0.32-4.0)
[2024-04-23 13:13] LABS: Anion Gap 15 (12-20)
[2024-04-23 13:18] LABS: Alanine Aminotransferase 40 U/L (0-31); Albumin Level 4.7 g/dL (3.5-5.0); Alkaline Phosphatase 109 U/L (39-117); Aspartate Amino Transferase 34 U/L (5-31); Bilirubin Total 0.9 mg/dL (0.0-1.0); Blood Urea Nitrogen 14 mg/dL (9-16); Calcium 9.8 mg/dL (8.4-10.2); Carbon Dioxide 25 mmol/L (22-29); Chloride 100 mmol/L (96-108); Estimated Glomerular Filt Rate 56; Glucose Random 102 mg/dL (60-115); Potassium 4.4 mmol/L (3.3-5.1); Sodium 136 mmol/L (135-145); Total Protein 8.4 g/dL (6.5-8.0)
== END 2024-04-23 10:49 | disposition home or self-care (01) ==
LOC: HO.LAB 10:48
PROVIDERS: PCP Internal Medicine; Visit Provider Internal Medicine
DX: R43.8 Other disturbances of smell and taste (principal); I10 Essential (primary) hypertension; J98.8 Other specified respiratory disorders; E83.42 Hypomagnesemia; E78.00 Pure hypercholesterolemia, unspecified; D64.9 Anemia, unspecified; Z79.899 Other long term (current) drug therapy
CPT/HCPCS: 0241U; 80053; 81001; 83735; 84443; 85025; 87086; 96127; 99212

== ENCOUNTER 2024-04-23 10:48 | Outpatient (AMB) | payer OTHER, SELFPAY ==
[2024-04-23 10:55] VITALS: BP 122/76; PULSE 79; O2SAT 96; BMI 29.9
--- NOTE | 2024-04-23 10:55 | MHC.PC.OV ---
Vital Signs 04/23/24 10:55 Height 5 ft 1 in Weight 158 lb 8 oz BMI 29.9 BP 122/76 Blood Pressure Location Lt brachial Position Sitting Pulse 79 Pulse Source Pulse Oximeter Pulse Oximetry (%) 96 Oxygen Delivery Method Room Air Intake Visit Reasons: not feeling well Apartment Coordinator Required: No Accompanied by: Self / Same As Patient Allergies nitroglycerin [NITROGLYCERIN] Allergy (Severe, Verified 04/23/24 11:05) NAUSEA, NUMBNESS IN MOUTH, burning Medication List - Last Reconciled 04/23/24 by Jatinder Amado MD atorvastatin 20 mg PO DAILY 90 days cholecalciferol (vitamin D3) 50 mcg PO DAILY 90 days fluoxetine 20 mg PO QAM fluticasone propionate 50 mcg/actuation (Flonase Allergy Relief) 2 sprays intranasal DAILY hydrochlorothiazide 12.5 mg PO QAM 90 days lidocaine 5% 1 patch topical DAILY lorazepam 0.5 mg PO BID-TID PRN 30 days losartan 100 mg PO DAILY magnesium oxide 1,200 mg PO BID metoprolol tartrate 50 mg PO BID mirtazapine 7.5 mg PO BEDTIME 30 days nabumetone 500 mg PO BID PRN 30 days omeprazole 20 mg PO DAILY potassium chloride ER (Klor-Con M) 10 mEq PO DAILY tizanidine 4 mg PO TID PRN Tobacco use date assessed: 04/23/24 Fall risk assessment: No Falls in past year Last assessed Fall Risk: 04/23/24 Dental Screening Dental Screen Date: 04/23/24 Did you have a dental visit in the last 12 months?: No Did you have a dental problem in the last 6 months where you did not have access to dental care?: No Was dental information given to patient?: No HPI not feeling well HPI Details Patient comes in today complaining of a weird/metallic taste in her mouth/on her tongue for the past 3 weeks States that she has not been able to eat much of anything lately as a result; she denies any trouble swallowing Relates that she's had a sore throat in the beginning about 3 weeks ago for a few days but her throat is no longer sore at this time She also does not really recall any recent significant cough/cold symptoms She presently denies any fever, headaches or dizziness Denies any chest pains, no SOB No nausea/vomiting, no abdominal pain No change in bowel habits noted Adds that she needs a couple of her Rx refilled, including her Losartan-HCT [facility] Medical History Vitamin D deficiency Arthralgia Obesity (BMI 30-39.9) Depression Anxiety Primary osteoarthritis of both knees Gastritis Hypomagnesemia Hypokalemia Impaired fasting glucose Pure hypercholesterolemia Benign essential hypertension Surgical History Status post colonoscopy (~07/30/19) History of tubal ligation History of cholecystectomy Family History Father Medical history unknown Mother Colon cancer Social History Housing: Apartment Alcohol intake: current Alcohol intake frequency: holidays/special occasions only Patient Tobacco Use Status: Former Tobacco user e-Cigarette/Vaping Use: Never Used Second Hand Smoke Exposure: Yes service: No Current occupational status: disabled Cognitive needs: No Hearing needs: No Vision needs: Yes Questionnaire PHQ-9 Over the last 2 weeks, how often have you been bothered by any of the following problems? 1. Little interest or pleasure in doing things: several days 2. Feeling down, depressed, or hopeless: several days 3. Trouble falling or staying asleep, or sleeping too much: several days 4. Feeling tired or having little energy: several days 5. Poor appetite or overeating: several days 6. Feeling bad about yourself - or that you are a failure or have let yourself or your family down: not at all 7. Trouble concentrating on things, such as reading the newspaper or watching television: not at all 8. Moving or speaking so slowly that other people could have noticed. Or the opposite - being so fidgety or restless that you have been moving around a lot more than usual: not at all 9. Thoughts that you would be better off or of hurting yourself in some way: not at all Total score: 5 Depression Screening Interpretation: Positive Depression Screening Follow-up: Existing condition and In treatment Depression Screening Done: Yes 83971 - PHQ-9 Billing: Yes Source: Developed by Drs. Jennifer Antonio, Mike Alvarez and colleagues, with an educational courtney from [employer]. Thrive Questionnaire Date Thrive assessed: 04/23/24 I am a: Patient What is your living situation today?: I have a steady place to live Within the past 12 months, did the food you bought not last and you didn't have the money to get more?: Never true Within the past 12 months, did you worry whether your food would run out before you got money to buy more?: Never true Do you have trouble paying for medicines?: No Do you have trouble getting transportation to medical appointments?: No Do you have trouble paying your heating and electricity bill?: No Do you have trouble taking care of your child, family member or friend?: No Do you have trouble with day-to-day activities such as bathing, preparing meals, shopping, managing finances, etc.?: No Are you currently unemployed and looking for a job?: No Are you interested in more education?: No Please select the resources that you would like help with: None Currently or been in a relationship where the following occur: No concerns reported THRIVE Score: 0 AUDIT C Alcohol Use Questionnaire (AUDIT-C) 1. How often do you have a drink containing alcohol?: Never 3. How often do you have six or more drinks on one occasion?: Never Total Score: 0 Score Reviewed/Action Taken: Yes KEIRA-7 AMB Questionnaire KEIRA-7 Date KEIRA - 7 assessed: 04/23/24 Feeling nervous, anxious, or on edge: 0 = Not at all Not being able to stop or control worryin = Not at all Worrying too much about different things: 0 = Not at all Trouble relaxin = Not at all Being so restless that it is hard to sit still: 0 = Not at all Becoming easily annoyed or irritable: 0 = Not at all Feeling afraid as if something awful might happen: 0 = Not at all Total KEIRA-7 score (0-4 normal; 5-9 mild; 10-14 moderate; 15-21 severe): 0 Source: Developed by Jennifer Rhodes, Mike Alvarez and colleagues, with an educational courtney from [employer]. Review of Systems Const Denies chills, Denies fatigue, Denies fever(s), Denies headache(s) and Reports poor appetite (mostly due to her current taste complaint/symptom ) ENT Details: c/o weird taste in mouth and on her tongue - sort of like a metallic and bitter taste Denies dysphagia, Denies dizziness, Denies otalgia, Denies headache(s), Denies neck pain, Denies odynophagia and Denies sore throat Card Denies chest pain, Denies palpitations and Denies dyspnea Resp Denies chest congestion, Denies cough and Denies dyspnea GI Denies abdominal pain, Denies constipation, Denies dysphagia, Denies heartburn, Denies diarrhea, Denies nausea, Denies odynophagia and Denies vomiting Denies difficulty voiding, Denies nocturia and Denies dysuria Musc Denies back pain and Denies neck pain Skin/Breast Denies rash Neuro Denies dizziness and Denies headache(s) Endo Denies fatigue and Denies palpitations Physical exam (Primary Care) Vital Signs: Last Vital Signs Pulse 79 04/23/24 10:55 BP 122/76 04/23/24 10:55 Pulse Ox 96 04/23/24 10:55 Oxygen Delivery Method Room Air 04/23/24 10:55 BMI result Body Mass Index 29.9 Tobacco/Smoking Status: Tobacco use Status Tobacco use date assessed 04/23/24 04/23/24 11:02 Patient Tobacco Use Status Former Tobacco user 04/23/24 11:02 e-Cigarette/Vaping Use Never Used 04/23/24 11:02 PHQ-9: PHQ-9 Score PHQ-9: Total score 5 04/23/24 11:02 Depression Screening Interpretation: Positive Depression Screening Follow-up: Existing condition and In treatment Thrive Assessment: Date of Thrive Assessment Date Thrive assessed 04/23/24 04/23/24 11:02 Currently or been in a relationship where the following occur: No concerns reported Const General: no acute distress and alert HENMT Ears: TM's normal bilaterally and EAC's normal Mouth: Normal oral and palatal mucosa present, tongue normal, oropharynx normal and breath no malodorous Teeth and gingiva: dentition normal Throat: Yes posterior oropharynx normal, Yes tonsils normal (no TP congestion) and No postnasal drainage Neck Neck: Yes supple and No lymphadenopathy Thyroid: Thyroid normal Resp Auscultation: clear to auscultation bilaterally, no rales and no wheezes Cardio Rate: regular rate Rhythm: regular rhythm Heart sounds: no murmurs GI Palpation (GI): Soft to palpation and nontender Auscultation: normal bowel sounds General: Yes no CVA tenderness Back/Spine/Pelvis Back: no CVA tenderness Thoracic/Lumbar Spine: No lumbar spinal tenderness Skin Rashes: no rashes Extrem General: Yes no clubbing, cyanosis or edema Right lower extremity: knee Details: tenderness and crepitus; no swelling Left lower extremity: knee Details: tenderness and crepitus; no swelling Coding Level of Care Code Est Pt Level 3 (78873) Diagnoses Metallic taste R43.8 Benign essential hypertension I10 Additional Codes PHQ-9 - 23808 - PHQ-9 Billing: Yes ([id number]) Assessment & Plan Assessment & Plan (1) Metallic taste: Code(s): R43.8 - Other disturbances of smell and taste Category: Medical Plan: Have advised patient that at this time, I do not have any explanation to offer for her taste alteration of incongruence other than the possibility that she may have contracted COVID recently, as COVID is a known and common reason for taste alteration or loss of taste in patients over the past year or two Will send her for COVID testing (although this may now be negative as her symptoms started about 3 weeks ago) as well as some routine labs for further evaluation Have advised patient that if her labs all come out normal, as long as she has no trouble swallowing, there may not be much else to do except give it some time for her taste to return to normal - have advised patient that this can take weeks or months and we really have no way to tell beforehand how long this may actually take Can also consider referring her to ENT for further evaluation but unless she has any current oral or throat issues going on, she will likely also be given the same advice by ENT (2) Benign essential hypertension: Code(s): I10 - Essential (primary) hypertension Category: Medical Plan: Reinforced low sodium diet - goal is systolic BP of at least 130 mm or less Continue Losartan 100 mg QD (Rx refilled), Metoprolol 50 mg BID and HCTZ 12.5 mg QD Plan To return as scheduled in 1 to 2 weeks for her next follow up visit Orders: Orders SARS-CoV2/FLU/RSV Today J98.8 - Other specified respiratory disorders, R43.8 - Other disturbances of smell and taste Comprehensive Met. Panel Today R43.8 - Other disturbances of smell and taste Magnesium Today E83.42 - Hypomagnesemia, R43.8 - Other disturbances of smell and taste TSH reflex Free T4 Today E78.00 - Pure hypercholesterolemia, unspecified, R43.8 - Other disturbances of smell and taste Complete Blood Count Auto Diff Today D64.9 - Anemia, unspecified, R43.8 - Other disturbances of smell and taste UA CC w/rflx Micro + Cult Today R30.0 - Dysuria Medications: Refilled losartan 100 mg PO DAILY 90 tabs 1RF potassium chloride ER (Klor-Con M) 10 mEq PO DAILY 90 tabs 5RF
== END 2024-04-23 11:34 | disposition home or self-care (01) ==
LOC: HO.HMCH 10:48
PROVIDERS: PCP Internal Medicine; Visit Provider Internal Medicine
DX: R43.8 Other disturbances of smell and taste (principal); I10 Essential (primary) hypertension

== ENCOUNTER 2024-05-02 16:12 | Outpatient (AMB) | payer OTHER, SELFPAY ==
[2024-05-02 16:15] VITALS: BP 126/80; PULSE 93; O2SAT 96; BMI 29.5
--- NOTE | 2024-05-02 16:15 | MHC.PC.OV ---
Vital Signs 05/02/24 16:15 Height 5 ft 1 in Weight 156 lb BMI 29.5 BP 126/80 Blood Pressure Location Lt brachial Position Sitting Pulse 93 Pulse Source Pulse Oximeter Pulse Oximetry (%) 96 Oxygen Delivery Method Room Air Intake Visit Reasons: HTN, hyperlipidemia, IFG, gastritis Web Press Jogger Required: No Accompanied by: Self / Same As Patient Allergies nitroglycerin [NITROGLYCERIN] Allergy (Severe, Verified 05/02/24 16:43) NAUSEA, NUMBNESS IN MOUTH, burning Medication List - Last Reconciled 05/02/24 by Jatinder Amado MD atorvastatin 20 mg PO DAILY 90 days cholecalciferol (vitamin D3) 50 mcg PO DAILY 90 days fluoxetine 20 mg PO QAM fluticasone propionate 50 mcg/actuation (Flonase Allergy Relief) 2 sprays intranasal DAILY hydrochlorothiazide 12.5 mg PO QAM 90 days lidocaine 5% 1 patch topical DAILY lorazepam 0.5 mg PO BID-TID PRN 30 days losartan 100 mg PO DAILY magnesium oxide 1,200 mg PO BID metoprolol tartrate 50 mg PO BID mirtazapine 7.5 mg PO BEDTIME 30 days nabumetone 500 mg PO BID PRN 30 days omeprazole 20 mg PO DAILY potassium chloride ER (Klor-Con M) 10 mEq PO DAILY tizanidine 4 mg PO TID PRN Tobacco use date assessed: 05/02/24 Fall risk assessment: No Falls in past year Last assessed Fall Risk: 05/02/24 Dental Screening Dental Screen Date: 05/02/24 Did you have a dental visit in the last 12 months?: No Did you have a dental problem in the last 6 months where you did not have access to dental care?: No Was dental information given to patient?: No HPI HTN, hyperlipidemia, IFG, gastritis HPI Details Patient comes in today for her follow-up visit for her hypertension, hyperlipidemia, IFG and osteoarthritis States that she feels okay but continues to experience a persistent bitter a metallic taste in her mouth Notes that is also sometimes a faint sweet taste but the metallic taste is still the predominant one She denies any other acute oral or mouth issues and denies any recent sore throat She denies any headaches or dizziness Denies any chest pains, no increased shortness of breath No nausea/vomiting, no abdominal pain No change in bowel habits noted She had her follow-up labs done last week - to discuss her results PFSH Medical History Vitamin D deficiency Arthralgia Obesity (BMI 30-39.9) Depression Anxiety Primary osteoarthritis of both knees Gastritis Hypomagnesemia Hypokalemia Impaired fasting glucose Pure hypercholesterolemia Benign essential hypertension Surgical History Status post colonoscopy (~07/30/19) History of tubal ligation History of cholecystectomy Family History Father Medical history unknown Mother Colon cancer Social History Housing: Apartment Alcohol intake: current Alcohol intake frequency: holidays/special occasions only Patient Tobacco Use Status: Former Tobacco user e-Cigarette/Vaping Use: Never Used Second Hand Smoke Exposure: Yes service: No Current occupational status: disabled Cognitive needs: No Hearing needs: No Vision needs: Yes Questionnaire PHQ-9 Over the last 2 weeks, how often have you been bothered by any of the following problems? 1. Little interest or pleasure in doing things: several days 2. Feeling down, depressed, or hopeless: several days 3. Trouble falling or staying asleep, or sleeping too much: several days 4. Feeling tired or having little energy: several days 5. Poor appetite or overeating: several days 6. Feeling bad about yourself - or that you are a failure or have let yourself or your family down: not at all 7. Trouble concentrating on things, such as reading the newspaper or watching television: not at all 8. Moving or speaking so slowly that other people could have noticed. Or the opposite - being so fidgety or restless that you have been moving around a lot more than usual: not at all 9. Thoughts that you would be better off or of hurting yourself in some way: not at all Total score: 5 Depression Screening Interpretation: Positive Depression Screening Follow-up: Existing condition and In treatment Depression Screening Done: Yes 77126 - PHQ-9 Billing: Yes Source: Developed by Drs. Abrahan Bob, Jennifer Amador, Mike Alvarez and colleagues, with an educational courtney from [employer]. Thrive Questionnaire Date Thrive assessed: 05/02/24 I am a: Patient What is your living situation today?: I have a steady place to live Within the past 12 months, did the food you bought not last and you didn't have the money to get more?: Never true Within the past 12 months, did you worry whether your food would run out before you got money to buy more?: Never true Do you have trouble paying for medicines?: No Do you have trouble getting transportation to medical appointments?: No Do you have trouble paying your heating and electricity bill?: No Do you have trouble taking care of your child, family member or friend?: No Do you have trouble with day-to-day activities such as bathing, preparing meals, shopping, managing finances, etc.?: No Are you currently unemployed and looking for a job?: No Are you interested in more education?: No Please select the resources that you would like help with: None Currently or been in a relationship where the following occur: No concerns reported THRIVE Score: 0 AUDIT C Alcohol Use Questionnaire (AUDIT-C) 1. How often do you have a drink containing alcohol?: Never 3. How often do you have six or more drinks on one occasion?: Never Total Score: 0 Score Reviewed/Action Taken: Yes KEIRA-7 AMB Questionnaire KEIRA-7 Date KEIRA - 7 assessed: 05/02/24 Feeling nervous, anxious, or on edge: 0 = Not at all Not being able to stop or control worryin = Not at all Worrying too much about different things: 0 = Not at all Trouble relaxin = Not at all Being so restless that it is hard to sit still: 0 = Not at all Becoming easily annoyed or irritable: 0 = Not at all Feeling afraid as if something awful might happen: 0 = Not at all Total KEIRA-7 score (0-4 normal; 5-9 mild; 10-14 moderate; 15-21 severe): 0 Source: Developed by Drs. Abrahan Bob, Jennifer Amador, Mike Alvarez and colleagues, with an educational courtney from [employer]. Review of Systems Const Denies chills, Denies fatigue, Denies fever(s) and Denies headache(s) ENT Details: c/o persistent metallic and bitter taste in her mouth and on her tongue Denies dysphagia, Denies dizziness, Denies otalgia, Denies headache(s), Denies mouth lesions, Denies neck pain, Denies odynophagia, Denies sore throat and Denies tongue swelling Card Denies chest pain, Denies palpitations and Denies dyspnea Resp Denies chest congestion, Denies cough and Denies dyspnea GI Denies abdominal pain, Denies constipation, Denies dysphagia, Denies heartburn, Denies diarrhea, Denies nausea, Denies odynophagia and Denies vomiting Denies difficulty voiding, Denies nocturia and Denies dysuria Musc Denies back pain and Denies neck pain Skin/Breast Denies rash Neuro Denies dizziness and Denies headache(s) Endo Denies fatigue and Denies palpitations Aller/Immun Denies tongue swelling Physical exam (Primary Care) Vital Signs: Last Vital Signs Pulse 93 05/02/24 16:15 BP 126/80 05/02/24 16:15 Pulse Ox 96 05/02/24 16:15 Oxygen Delivery Method Room Air 05/02/24 16:15 BMI result Body Mass Index 29.5 Tobacco/Smoking Status: Tobacco use Status Tobacco use date assessed 05/02/24 05/02/24 16:22 Patient Tobacco Use Status Former Tobacco user 05/02/24 16:22 e-Cigarette/Vaping Use Never Used 05/02/24 16:22 PHQ-9: PHQ-9 Score PHQ-9: Total score 5 05/02/24 16:47 Depression Screening Interpretation: Positive Depression Screening Follow-up: Existing condition and In treatment Thrive Assessment: Date of Thrive Assessment Date Thrive assessed 05/02/24 05/02/24 16:22 Currently or been in a relationship where the following occur: No concerns reported Const General: no acute distress and alert HENMT Ears: TM's normal bilaterally and EAC's normal Mouth: Normal oral and palatal mucosa present, tongue normal and oropharynx normal Throat: Yes posterior oropharynx normal, Yes tonsils normal (no TP congestion) and No postnasal drainage Neck Neck: Yes supple and No lymphadenopathy Thyroid: Thyroid normal Resp Auscultation: clear to auscultation bilaterally, no rales and no wheezes Cardio Rate: regular rate Rhythm: regular rhythm Heart sounds: no murmurs GI Palpation (GI): Soft to palpation and nontender Auscultation: normal bowel sounds General: Yes no CVA tenderness Back/Spine/Pelvis Back: no CVA tenderness Thoracic/Lumbar Spine: No lumbar spinal tenderness Skin Rashes: no rashes Extrem General: Yes no clubbing, cyanosis or edema Right lower extremity: knee Details: tenderness and crepitus; no swelling Left lower extremity: knee Details: tenderness and crepitus; no swelling Results Reviewed Results Reviewed: Laboratory Tests 04/11/24 04/23/24 04/23/24 09:17 11:28 11:30 WBC 6.3 Hgb 15.2 Hct 43.6 Plt Count 283 Sodium 136 Potassium 4.4 Creatinine 0.99 Estimated GFR 56 Fasting Glucose 116 H Hemoglobin A1c % 5.1 Calcium 9.8 AST 34 H ALT 40 H Triglycerides 91 Cholesterol 168 LDL Cholesterol, Calc 85 HDL Cholesterol 65 Vitamin B12 426 25-OH Vitamin D Total 45.0 Folate 13.8 TSH 1.38 Ur Specific [place] 1.015 Urine Protein Negative Urine Glucose (UA) Negative Urine Blood Negative Urine Nitrite Negative Ur Leukocyte Esterase Moderate (2+) H Coding Level of Care Code Est Pt Level 4 (83378) Complex EM visit Add On G2211 Diagnoses Pure hypercholesterolemia E78.00 Benign essential hypertension I10 Impaired fasting glucose R73.01 Hypomagnesemia E83.42 Hypokalemia E87.6 Gastritis without bleeding, unspecified chronicity, unspecified gastritis type K29.70 Chronicity: unspecified Gastritis bleeding: without bleeding Gastritis type: unspecified gastritis Metallic taste R43.8 Vitamin D deficiency E55.9 Primary osteoarthritis of both knees M17.0 Anxiety F41.9 Episode of recurrent major depressive disorder, unspecified depression episode severity F33.9 Active/Remission status: currently active Depression Type: major depressive disorder Major depression episode severity: unspecified Major depression recurrence: recurrent Obesity (BMI 30-39.9) E66.9 Additional Codes PHQ-9 - 07537 - PHQ-9 Billing: Yes ([id number]) Assessment & Plan Assessment & Plan (1) Pure hypercholesterolemia: Code(s): E78.00 - Pure hypercholesterolemia, unspecified Category: Medical Plan: Results of her labs done last week reviewed and discussed with patient Reinforced low cholesterol diet Continue Atorvastatin 20 mg QD Will recheck her labs and fasting lipids in 4 months for follow up (2) Benign essential hypertension: Code(s): I10 - Essential (primary) hypertension Category: Medical Plan: Reinforced low sodium diet - goal is systolic BP of at least 130 mm or less Continue Losartan 100 mg QD, Metoprolol 50 mg BID and HCTZ 12.5 mg QD (3) Impaired fasting glucose: Code(s): R73.01 - Impaired fasting glucose Category: Medical Plan: Her HgbA1c remained normal at 5.1% when last checked a few weeks ago even though her FBS is still slightly elevated at 116 mg/dl Reinforced low calorie diet/exercise as tolerated Will continue to monitor her FBS and HgbA1c regularly (4) Hypomagnesemia: Code(s): E83.42 - Hypomagnesemia Category: Medical Plan: Corrected Continue Magnesium tablets 1200 mg BID Will continue to monitor her serum magnesium level regularly (5) Hypokalemia: Code(s): E87.6 - Hypokalemia Category: Medical Plan: Corrected - serum potassium level has been normal for a while now; will continue to monitor this regularly (6) Gastritis: Code(s): K29.70 - Gastritis, unspecified, without bleeding Category: Medical Qualifiers: Chronicity: unspecified Gastritis bleeding: without bleeding Gastritis type: unspecified gastritis Qualified Code(s): K29.70 - Gastritis, unspecified, without bleeding Plan: Reinforced dietary restrictions She has been taking Omeprazole 20 mg QD for a while now and I suspect that this may be actually what is causing or contributing to the persistent metallic taste that she has been complaining of for the past few months Will have her try stopping Omeprazole for now to see if this will help eliminate or resolve the taste disturbance that she has been experiencing lately Patient is advised to reach out to us [facility] if she starts experiencing any recurrent symptoms of heartburn or acid reflux after she stopped her Omeprazole Otherwise, if she has no issues, she is advised to stay off of her Omeprazole completely and we will reassess this at her next follow-up appointment (7) Metallic taste: Code(s): R43.8 - Other disturbances of smell and taste Category: Medical Plan: Have discussed with patient that I suspect that this may be actually be due to her Omeprazole Rx We will have her try stopping her Omeprazole for now to see if this will help eliminate or resolve the taste disturbance that she has been experiencing for the past few months (8) Vitamin D deficiency: Code(s): E55.9 - Vitamin D deficiency, unspecified Category: Medical Plan: Continue Vitamin D3 2000 units QD (9) Primary osteoarthritis of both knees: Code(s): M17.0 - Bilateral primary osteoarthritis of knee Category: Medical Plan: Knee x-rays done a couple of years ago revealed (+) OA changes bilaterally Follow up with orthopedics as scheduled (10) Anxiety: Code(s): F41.9 - Anxiety disorder, unspecified Category: Medical Plan: Continue Lorazepam 0.5 mg 2 to 3 times a day as needed for increased anxiety (11) Depression: Code(s): F32.9 - Major depressive disorder, single episode, unspecified Category: Medical Qualifiers: Active/Remission status: currently active Depression Type: major depressive disorder Major depression episode severity: unspecified Major depression recurrence: recurrent Qualified Code(s): F33.9 - Major depressive disorder, recurrent, unspecified Plan: Continue Fluoxetine 20 mg QD and Mirtazapine 7.5 mg Q HS (12) Obesity (BMI 30-39.9): Code(s): E66.9 - Obesity, unspecified Category: Medical Plan: Reinforced diet/exercise as tolerated/lose weight Plan Follow up in 4 months Orders: Orders Complete Blood Count Auto Diff 4 Months D64.9 - Anemia, unspecified Comprehensive [place]. Panel Fast 4 Months E78.00 - Pure hypercholesterolemia, unspecified Lipid Panel 4 Months E78.00 - Pure hypercholesterolemia, unspecified Magnesium 4 Months E83.42 - Hypomagnesemia TSH reflex Free T4 4 Months E78.00 - Pure hypercholesterolemia, unspecified UA CC w/rflx Micro + Cult 4 Months R30.0 - Dysuria Vitamin D 25-OH Total 4 Months E55.9 - Vitamin D deficiency, unspecified
== END 2024-05-02 16:51 | disposition home or self-care (01) ==
LOC: HO.HMCH 16:13
PROVIDERS: PCP Internal Medicine; Visit Provider Internal Medicine
DX: E78.00 Pure hypercholesterolemia, unspecified (principal); I10 Essential (primary) hypertension; R73.01 Impaired fasting glucose; E83.42 Hypomagnesemia; E87.6 Hypokalemia; K29.70 Gastritis, unspecified, without bleeding; R43.8 Other disturbances of smell and taste; E55.9 Vitamin D deficiency, unspecified; M17.0 Bilateral primary osteoarthritis of knee; F41.9 Anxiety disorder, unspecified; F33.9 Major depressive disorder, recurrent, unspecified; E66.9 Obesity, unspecified

== ENCOUNTER → 2024-05-02 16:12 | Outpatient (BNVA) | payer OTHER, SELFPAY | PROVIDERS: PCP Internal Medicine; Visit Provider Internal Medicine | DX: E78.00 Pure hypercholesterolemia, unspecified (principal); I10 Essential (primary) hypertension; R73.01 Impaired fasting glucose; E83.42 Hypomagnesemia; E87.6 Hypokalemia; K29.70 Gastritis, unspecified, without bleeding; R43.8 Other disturbances of smell and taste; M17.0 Bilateral primary osteoarthritis of knee; F41.9 Anxiety disorder, unspecified; F33.9 Major depressive disorder, recurrent, unspecified; E66.9 Obesity, unspecified | CPT/HCPCS: 96127; 99212 ==

== ENCOUNTER 2024-05-21 09:38 | Outpatient (REF) | payer OTHER, SELFPAY | END 2024-05-21 09:39 | disposition home or self-care (01) | LOC: HO.MAMMO 09:38 | PROVIDERS: PCP Internal Medicine; Visit Provider Internal Medicine | DX: Z12.31 Encounter for screening mammogram for malignant neoplasm of breast (principal) | CPT/HCPCS: 77063; 77067 ==

== ENCOUNTER → 2024-05-21 09:45 | Outpatient (BNV) | payer OTHER, SELFPAY | PROVIDERS: PCP Internal Medicine; Visit Provider Internal Medicine | DX: Z12.31 Encounter for screening mammogram for malignant neoplasm of breast (principal) | CPT/HCPCS: 77063; 77067 ==

== ENCOUNTER 2024-08-28 08:45 | Outpatient (REF) | payer OTHER, SELFPAY ==
--- OUTSIDE RECORDS SUMMARY | 2024-08-28 09:05 | XMS_ITS | Patient Health Record ---
Author Organization [facility] Address [address] [place] [address] Care Team Providers Care Fur Sorter Name Role Phone Les Amado MDneth Primary Care Provider Abrahan Perez Unavailable [phone] Allergies Allergen (clinical drug ingredient) Drug/Non Drug Allergy documented on EMR Reaction Allergy Type Onset Date Status nitroglycerin Nitrostat Unknown Drug Allergy Act isa Reason For Referral No Information Medications Medication SIG (Take, Route, Frequency, Duration) Notes Start Date End Date Status LORazepam 0.5 MG (Schedule IV Drug) TAKE 1 TABLET BY MOUTH 2 TO 3 TIMES DAILY NEEDED FOR INCREASED ANXIETY Oral for 30 Active Losartan Potassium 100 MG TAKE 1 TABLET BY MOUTH EVERY DAY Oral for 30 Active Omeprazole 20 MG TAKE 1 CAPSULE BY MOUTH EVERY DAY Oral Active Meloxicam 7.5 MG 1 tablet Orally NEEDED Unknown Fluticasone Propionate 50 MCG/ACT 1 spray in each nostril Nasally Once a day for 30 day(s) Active hydroCHLOROthiazide 25 MG TAKE 1 TABLET BY MOUTH EVERY DAY IN THE MORNING Oral for 90 Active Atorvastatin Calcium 10 MG TAKE 1 TABLET BY MOUTH EVERY DAY Oral for 90 Active Metoprolol Tartrate 50 MG TAKE 1 TABLET BY MOUTH TWICE A DAY WITH FOOD Oral for 30 Active tiZANidine HCl 4 MG TAKE 1 TABLET BY MOUTH THREE TIMES A DAY NEEDED Oral for 90 Active Klor-Con M10 10 MEQ 1 TABLET WITH FOOD ONCE A DAY ORALLY 90 Oral for 90 Active Immunizations Vaccine Route Administration Date Status Comme nts Influenza Unknown 03/22/2019 Refused Social History Tobacco Use: Social History Observation Description Date Details (start date - stop date) Former Smoker NA - NA Tobacco Use/Smoking Question Answer Notes Patient is a former smoker When did you stop smoking? 2 years a go How long has it been since you last smoked? 1-5 years Alcohol Screen Question Answer Notes Did you have a drink containing alcohol in the p ast year? No Points 0 Interpretation Negative Section Notes: Nonsmoker since 2018; no alc ohol Nonsmoker since 2018; no alc ohol Problems Problem Type SNOMED Code ICD Code Onset Dates Problem Status W/U Status Risk Notes Problem 670573841 Encounter for screening for malignant neoplasm of colon (Z12.11) Active confirmed Problem 376682789 History of adenomatous polyp of colon (Z86.010) Active confirmed Problem 271331188 Portal hypertens ion (K76.6) Active confirmed Problem 161570848 Gastroesophageal reflux disease, esophagitis presence not specified (K21.9) Active confirmed Problem 5345308 Chronic gastriti s without bleeding, unspecified gastritis type (K29.50) Active confirmed Plan Of Treatment Pending Test Test Name Order Date LIVER PROFILE 09/02/2019 CBC w DIFF 09/02/2019 PROTHROMBIN TIME (PT, INR) 09/02/2019 US ABD 09/02/2019 HCV LIVER FIBROSIS, FIBRO TEST 0 Future Test Test Name Order Date UPPER GI ENDOSCOPY 03/22/2019 COLONOSCOPY 03/22/2019 Insurance Providers Payer Name Payer Address Payer Phone Subscriber Number Group Number Insured Name Patient Relationship to Insured Coverage Start Date Coverage End Date [facility] [address] [place] [phone] [id number] JOLENE THAKKAR Self - patient is the insured Medical (General) History Medical History History ICD Code Hypertension Depression/Anxiety GERD Colonoscopy in 2008 with a small tubular adenoma removed Denies NE,DM,CVA,Lung disease,renal dise ase Hyperlipidemia Screening Colonoscopy 07/2019 with 2 tubu lar adenomas removed EGD in 07/2019 with a benign submucosal gastric antal lesion-this was very soft and biopsies were nonrevealing; there was also what appeared to be a proximal gastropathy, but a subsequent workup for underlying liver disease was negative including liver fibrosis score of F0, normal ultrasound of the liver with normal elastography, normal liver profile, normal CBC with platelet count, and a normal PT with INR Surgical History Surgery Date(Month/Year) BTL Cholecystectomy
[2024-08-28 10:05] LABS: Alanine Aminotransferase 23 U/L (0-31); Albumin Level 4.8 g/dL (3.5-5.0); Alkaline Phosphatase 97 U/L (39-117); Anion Gap 16 (12-20); Aspartate Amino Transferase 44 U/L (5-31); Blood Urea Nitrogen 13 mg/dL (9-16); Calcium 9.7 mg/dL (8.4-10.2); Carbon Dioxide 23 mmol/L (22-29); Chloride 102 mmol/L (96-108); Cholesterol 229 mg/dL (<200); Estimated Glomerular Filt Rate 57; HDL Cholesterol 68 mg/dL (>40); Magnesium 2.2 mg/dL (1.6-2.6); Potassium 4.7 mmol/L (3.3-5.1); Sodium 136 mmol/L (135-145); Total Protein 8.5 g/dL (6.5-8.0); Triglycerides 126 mg/dL (<150)
[2024-08-28 10:21] LABS: Appearance Urine Clear; Glucose Urine UA Negative (Negative); PH 5.5 (5.0-9.0); Specific Gravity - Urine >= 1.030 (1.005-1.025); UMIC TRIGGER UACC YES
[2024-08-28 10:31] LABS: UACC Culture Trigger YES
[2024-08-28 13:01] LABS: MANUAL DIFF FLAG NO
[2024-08-28 14:05] LABS: Hematocrit 40.3 % (37.0-47.0); Hemoglobin 13.8 g/dl (12.0-16.0); Imm Gran Abs Auto 0.01 X10*3/uL (0.00-0.03); Imm Gran Pct Auto 0.2 % (0.0-0.4); Lymphocytes Absolute Auto 2.4 X10*3/uL (1.2-4.9); Mean Corpuscular HGB Conc 34.2 g/dl (31.0-35.0); Mean Corpuscular Hemoglobin 30.1 pg (27.0-33.0); Mean Corpuscular Volume 88.0 fL (80.0-98.0); NRBC Abs Auto 0.000 X10*3/uL (0.0-0.012); NRBC Pct Auto 0.0 /100WBC (0.0-0.2); Platelet Count 290 X10*3/uL (160-400); Red Blood Count 4.58 X10*6/uL (4.20-5.50); White Blood Count 6.5 X10*3/uL (4.8-10.8)
[2024-08-28 14:33] LABS: Appearance Urine Clear; Glucose Urine UA Negative (Negative); PH 7.5 (5.0-9.0); Specific Gravity - Urine <= 1.005 (1.005-1.025); UMIC TRIGGER UACC YES
== END 2024-08-28 08:46 | disposition home or self-care (01) ==
LOC: HO.LAB 08:45
PROVIDERS: PCP Internal Medicine; Visit Provider Internal Medicine
DX: E78.00 Pure hypercholesterolemia, unspecified (principal); E83.42 Hypomagnesemia; D64.9 Anemia, unspecified; R30.0 Dysuria
CPT/HCPCS: 36415; 80053; 80061; 81001; 81003; 82306; 83735; 84443; 85025; 87086

== ENCOUNTER 2024-09-06 13:14 | Outpatient (AMB) | payer OTHER, SELFPAY ==
[2024-09-06 13:18] VITALS: BP 116/80; PULSE 109; O2SAT 96; BMI 29.0
--- NOTE | 2024-09-06 13:18 | A.OFFPC_ITS ---
Vital Signs 09/06/24 13:18 Height 5 ft 1 in Weight 153 lb 8 oz BMI 29.0 BP 116/80 Blood Pressure Location Lt femoral Position Sitting Pulse 109 H Pulse Source Pulse Oximeter Pulse Oximetry (%) 96 Oxygen Delivery Method Room Air Intake Visit Reasons: 4 Month F/U [employer] Operator Required: No Accompanied by: Self / Same As Patient Allergies nitroglycerin (NITROGLYCERIN) Allergy (Severe, Verified 09/06/24 13:43) NAUSEA, NUMBNESS IN MOUTH, burning Medication List - Last Reconciled 09/06/24 by Jatinder Amado MD atorvastatin 20 mg PO DAILY 90 days cholecalciferol (vitamin D3) 50 mcg PO DAILY 90 days fluoxetine 20 mg PO QAM fluticasone propionate 50 mcg/actuation (Flonase Allergy Relief) 2 sprays intranasal DAILY hydrochlorothiazide 12.5 mg PO QAM 90 days lidocaine 5% 1 patch topical DAILY lorazepam 0.5 mg PO BID-TID PRN 30 days losartan 100 mg PO DAILY magnesium oxide 1,200 mg PO BID metoprolol tartrate 50 mg PO BID mirtazapine 7.5 mg PO BEDTIME 30 days nabumetone 500 mg PO BID PRN 30 days potassium chloride ER (Klor-Con M) 10 mEq PO DAILY tizanidine 4 mg PO TID PRN Tobacco use date assessed: 09/06/24 Fall risk assessment: 1 Fall in past year Last assessed Fall Risk: 09/06/24 Dental Screening Dental Screen Date: 09/06/24 Did you have a dental visit in the last 12 months?: No Did you have a dental problem in the last 6 months where you did not have access to dental care?: No Was dental information given to patient?: Patient has dentist HPI 4 Month F/U HPI Details Patient comes in today for her follow-up visit States that she feels okay She denies any headaches or dizziness Denies any chest pains, no shortness of breath No nausea/vomiting, no abdominal pain but states that she has been experiencing recurrent heartburns lately since she was instructed to stop taking her omeprazole at her last visit Patient states that the recurrent metallic taste in her mouth gradually cleared up once she stopped taking her omeprazole a few months ago No change in bowel habits noted She either follow-up labs done last week - to discuss her results [facility] Medical History Vitamin D deficiency Arthralgia Obesity (BMI 30-39.9) Depression Anxiety Primary osteoarthritis of both knees Gastritis Hypomagnesemia Hypokalemia Impaired fasting glucose Pure hypercholesterolemia Benign essential hypertension Surgical History Status post colonoscopy (~07/30/19) History of tubal ligation History of cholecystectomy Family History Father Medical history unknown Mother Colon cancer Social History Housing: Apartment Alcohol intake: current Alcohol intake frequency: holidays/special occasions only Patient Tobacco Use Status: Former Tobacco user e-Cigarette/Vaping Use: Never Used Second Hand Smoke Exposure: Yes service: No Current occupational status: disabled Cognitive needs: No Hearing needs: No Vision needs: Yes Questionnaire PHQ-9 Over the last 2 weeks, how often have you been bothered by any of the following problems? 1. Little interest or pleasure in doing things: several days 2. Feeling down, depressed, or hopeless: several days 3. Trouble falling or staying asleep, or sleeping too much: several days 4. Feeling tired or having little energy: several days 5. Poor appetite or overeating: several days 6. Feeling bad about yourself - or that you are a failure or have let yourself or your family down: not at all 7. Trouble concentrating on things, such as reading the newspaper or watching television: not at all 8. Moving or speaking so slowly that other people could have noticed. Or the opposite - being so fidgety or restless that you have been moving around a lot more than usual: not at all 9. Thoughts that you would be better off or of hurting yourself in some way: not at all Total score: 5 Depression Screening Interpretation: Positive Depression Screening Follow-up: Existing condition and In treatment Depression Screening Done: Yes 97337 - PHQ-9 Billing: Yes Source: Developed by Drs. Abrahan Bob, Jennifer Amador, Mike Alvarez and colleagues, with an educational courtney from [employer]. Thrive Questionnaire Date Thrive assessed: 09/06/24 I am a: Patient What is your living situation today?: I have a steady place to live Within the past 12 months, did the food you bought not last and you didn't have the money to get more?: Never true Within the past 12 months, did you worry whether your food would run out before you got money to buy more?: Never true Do you have trouble paying for medicines?: No Do you have trouble getting transportation to medical appointments?: No Do you have trouble paying your heating and electricity bill?: No Do you have trouble taking care of your child, family member or friend?: No Do you have trouble with day-to-day activities such as bathing, preparing meals, shopping, managing finances, etc.?: No Are you currently unemployed and looking for a job?: No Are you interested in more education?: No Please select the resources that you would like help with: None Currently or been in a relationship where the following occur: No concerns reported THRIVE Score: 0 AUDIT C Alcohol Use Questionnaire (AUDIT-C) 1. How often do you have a drink containing alcohol?: Never 3. How often do you have six or more drinks on one occasion?: Never Total Score: 0 Score Reviewed/Action Taken: Yes KEIRA-7 AMB Questionnaire KEIRA-7 Date KEIRA - 7 assessed: 09/06/24 Feeling nervous, anxious, or on edge: 0 = Not at all Not being able to stop or control worryin = Not at all Worrying too much about different things: 0 = Not at all Trouble relaxin = Not at all Being so restless that it is hard to sit still: 0 = Not at all Becoming easily annoyed or irritable: 0 = Not at all Feeling afraid as if something awful might happen: 0 = Not at all Total KEIRA-7 score (0-4 normal; 5-9 mild; 10-14 moderate; 15-21 severe): 0 Source: Developed by Drs. Abrahan Bob, Jennifer Amador, Mike Alvarez and colleagues, with an educational courtney from [employer]. Review of Systems Const Denies chills, Denies fatigue, Denies fever(s) and Denies headache(s) ENT Denies dysphagia, Denies dizziness, Denies otalgia, Denies headache(s), Denies mouth lesions, Denies neck pain, Denies odynophagia, Denies sore throat and Denies tongue swelling Card Denies chest pain, Denies palpitations and Denies dyspnea Resp Denies chest congestion, Denies cough and Denies dyspnea GI Denies abdominal pain, Denies constipation, Denies dysphagia, Reports heartburn (recurrent lately), Denies diarrhea, Denies nausea, Denies odynophagia and Denies vomiting Denies difficulty voiding, Denies nocturia and Denies dysuria Musc Denies back pain and Denies neck pain Skin/Breast Denies rash Neuro Denies dizziness and Denies headache(s) Endo Denies fatigue and Denies palpitations Aller/Immun Denies tongue swelling Physical exam (Primary Care) Vital Signs: Last Vital Signs Pulse 109 H 09/06/24 13:18 BP 116/80 09/06/24 13:18 Pulse Ox 96 09/06/24 13:18 Oxygen Delivery Method Room Air 09/06/24 13:18 BMI result Body Mass Index 29.0 Tobacco/Smoking Status: Tobacco use Status Tobacco use date assessed 09/06/24 09/06/24 13:23 Patient Tobacco Use Status Former Tobacco user 09/06/24 13:23 e-Cigarette/Vaping Use Never Used 09/06/24 13:23 PHQ-9: PHQ-9 Score PHQ-9: Total score 5 09/06/24 13:44 Depression Screening Interpretation: Positive Depression Screening Follow-up: Existing condition and In treatment Thrive Assessment: Date of Thrive Assessment Date Thrive assessed 09/06/24 09/06/24 13:23 Currently or been in a relationship where the following occur: No concerns reported Const General: no acute distress and alert HENMT Ears: TM's normal bilaterally and EAC's normal Throat: Yes posterior oropharynx normal and Yes tonsils normal (no TP congestion) Neck Neck: Yes supple and No lymphadenopathy Thyroid: Thyroid normal Resp Auscultation: clear to auscultation bilaterally, no rales and no wheezes Cardio Rate: regular rate Rhythm: regular rhythm Heart sounds: no murmurs GI Palpation (GI): Soft to palpation and nontender Auscultation: normal bowel sounds General: Yes no CVA tenderness Back/Spine/Pelvis Back: no CVA tenderness Thoracic/Lumbar Spine: No lumbar spinal tenderness Skin Rashes: no rashes Extrem General: Yes no clubbing, cyanosis or edema Right lower extremity: knee Details: tenderness and crepitus; no swelling Left lower extremity: knee Details: tenderness and crepitus; no swelling Results Reviewed Results Reviewed: Laboratory Tests 08/28/24 08/28/24 08/28/24 09:14 12:59 13:00 WBC 6.5 Hgb 13.8 Hct 40.3 Plt Count 290 Sodium 136 Potassium 4.7 Creatinine 0.98 Estimated GFR 57 Fasting Glucose 116 H Calcium 9.7 Magnesium 2.2 AST 44 H ALT 23 Triglycerides 126 Cholesterol 229 H LDL Cholesterol, Calc 136 H HDL Cholesterol 68 25-OH Vitamin D Total 54.3 TSH 1.18 Urine pH 7.5 Ur Specific [place] <= 1.005 Urine Protein Negative Urine Glucose (UA) Negative Urine Blood Negative Urine Nitrite Negative Ur Leukocyte Esterase Trace H Coding Level of Care Code Est Pt Level 4 (59474) Diagnoses Pure hypercholesterolemia E78.00 Benign essential hypertension I10 Impaired fasting glucose R73.01 Hypomagnesemia E83.42 Hypokalemia E87.6 Gastritis without bleeding, unspecified chronicity, unspecified gastritis type K29.70 Gastritis type: unspecified gastritis Chronicity: unspecified Gastritis bleeding: without bleeding Metallic taste R43.8 Vitamin D deficiency E55.9 Primary osteoarthritis of both knees M17.0 Anxiety F41.9 Episode of recurrent major depressive disorder, unspecified depression episode severity F33.9 Depression Type: major depressive disorder Major depression recurrence: recurrent Active/Remission status: currently active Major depression episode severity: unspecified Obesity (BMI 30-39.9) E66.9 Additional Codes PHQ-9 - 95336 - PHQ-9 Billing: Yes ([id number]) Assessment & Plan Assessment & Plan (1) Pure hypercholesterolemia: Code(s): E78.00 - Pure hypercholesterolemia, unspecified Category: Medical Plan: Results of her labs done last week reviewed and discussed with patient Reinforced low cholesterol diet Continue Atorvastatin 20 mg QD Will recheck her labs and fasting lipids in 4 months for follow up (2) Benign essential hypertension: Code(s): I10 - Essential (primary) hypertension Category: Medical Plan: Reinforced low sodium diet - goal is systolic BP of at least 130 mm or less Continue Losartan 100 mg QD, Metoprolol 50 mg BID and HCTZ 12.5 mg QD (3) Impaired fasting glucose: Code(s): R73.01 - Impaired fasting glucose Category: Medical Plan: Her HgbA1c remained normal at 5.1% when last checked a few monthss ago even though her FBS is still slightly elevated at 116 mg/dl on her recent labs Reinforced low calorie diet/exercise as tolerated Will continue to monitor her FBS and HgbA1c regularly (4) Hypomagnesemia: Code(s): E83.42 - Hypomagnesemia Category: Medical Plan: Corrected Continue Magnesium tablets 1200 mg BID Will continue to monitor her serum magnesium level regularly (5) Hypokalemia: Code(s): E87.6 - Hypokalemia Category: Medical Plan: Corrected - serum potassium level has been normal for a while now; will continue to monitor this regularly (6) Gastritis: Code(s): K29.70 - Gastritis, unspecified, without bleeding Category: Medical Qualifiers: Gastritis type: unspecified gastritis Chronicity: unspecified Gastritis bleeding: without bleeding Qualified Code(s): K29.70 - Gastritis, unspecified, without bleeding Plan: Reinforced dietary restrictions She has been taking Omeprazole 20 mg QD for a while now but she was instructed to hold her Omeprazole at her last visit as we suspected that the persistent metallic taste in her mouth may be actually be due to her medication Patient states that her oral symptoms gradually improved/resolved when she stopped taking her omeprazole as instructed at her last visit but she started experiencing frequent heartburns lately Will try starting her for now on famotidine 20 mg BID PRN (7) Metallic taste: Code(s): R43.8 - Other disturbances of smell and taste Category: Medical Plan: Resolved - appeared to be a side effect of her Omeprazole Rx, as this scheduling improved when she stopped taking her medication (8) Vitamin D deficiency: Code(s): E55.9 - Vitamin D deficiency, unspecified Category: Medical Plan: Continue Vitamin D3 2000 units QD (9) Primary osteoarthritis of both knees: Code(s): M17.0 - Bilateral primary osteoarthritis of knee Category: Medical Plan: Knee x-rays done a couple of years ago revealed (+) OA changes bilaterally Follow up with orthopedics as scheduled (10) Anxiety: Code(s): F41.9 - Anxiety disorder, unspecified Category: Medical Plan: Continue Lorazepam 0.5 mg 2 to 3 times a day as needed for increased anxiety (11) Depression: Code(s): F32.9 - Major depressive disorder, single episode, unspecified Category: Medical Qualifiers: Depression Type: major depressive disorder Major depression recurrence: recurrent Active/Remission status: currently active Major depression episode severity: unspecified Qualified Code(s): F33.9 - Major depressive disorder, recurrent, unspecified Plan: Continue Fluoxetine 20 mg QD and Mirtazapine 7.5 mg Q HS (12) Obesity (BMI 30-39.9): Code(s): E66.9 - Obesity, unspecified Category: Medical Plan: Reinforced diet/exercise as tolerated/lose weight Plan Follow up in 4 months Orders: Orders Complete Blood Count Auto Diff 4 Months D64.9 - Anemia, unspecified Hemoglobin A1c 4 Months R73.01 - Impaired fasting glucose TSH reflex Free T4 4 Months E78.00 - Pure hypercholesterolemia, unspecified Vitamin D 25-OH Total 4 Months E55.9 - Vitamin D deficiency, unspecified Vitamin B12 and Folate 4 Months E53.8 - Deficiency of other specified B group vitamins Lipid Panel 4 Months E78.00 - Pure hypercholesterolemia, unspecified Comprehensive [place]. Panel Fast 4 Months E78.00 - Pure hypercholesterolemia, unspecified Magnesium 4 Months E83.42 - Hypomagnesemia UA CC w/rflx Micro + Cult 4 Months R30.0 - Dysuria Medications: New famotidine 20 mg PO BID 60 tabs 5RF 30 days Changed From metoprolol tartrate 50 mg PO BID 180 tabs 0RF To metoprolol tartrate 50 mg PO BID 180 tabs 3RF 90 days
--- OUTSIDE RECORDS SUMMARY | 2024-09-06 13:25 | XMS_ITS | Patient Health Record ---
Author Organization [facility] Address [address] [place] [address] Care Team Providers Care Fixed Assets Accountant Name Role Phone Les Amado MDneth Primary Care Provider Abrahan Perez Unavailable [phone] Allergies Allergen (clinical drug ingredient) Drug/Non Drug [...] Problem Status W/U Status Risk Notes Problem 588706123 Encounter for screening for malignant neoplasm of colon (Z12.11) Active confirmed Problem 950610706 History of adenomatous polyp of colon (Z86.010) Active confirmed Problem [id number] Portal hypertens ion (K76.6) Active confirmed Problem [id number] Gastroesophageal reflux disease, esophagitis presence not specified (K21.9) Active confirmed Problem 4475353 Chronic gastriti s without bleeding, unspecified gastritis [...] Insured Coverage Start Date Coverage End Date [facility] [address] [place] [address] [id number] JOLENE THAKKAR Self - patient is the insured Medical (General) History Medical History History ICD Code Hypertension Depression/Anxiety GERD Colonoscopy in 2008 with a small tubular adenoma removed Denies LA,DM,CVA,Lung disease,renal dise ase Hyperlipidemia Screening Colonoscopy 07/2019 [...]
== END 2024-09-06 13:49 | disposition home or self-care (01) ==
LOC: HO.HMCH 13:15
PROVIDERS: PCP Internal Medicine; Visit Provider Internal Medicine
DX: E78.00 Pure hypercholesterolemia, unspecified (principal); I10 Essential (primary) hypertension; R73.01 Impaired fasting glucose; E83.42 Hypomagnesemia; E87.6 Hypokalemia; K29.70 Gastritis, unspecified, without bleeding; R43.8 Other disturbances of smell and taste; E55.9 Vitamin D deficiency, unspecified; M17.0 Bilateral primary osteoarthritis of knee; F41.9 Anxiety disorder, unspecified; F33.9 Major depressive disorder, recurrent, unspecified; E66.9 Obesity, unspecified; Z68.29 Body mass index [BMI] 29.0-29.9, adult

== ENCOUNTER → 2024-09-06 13:14 | Outpatient (BNVA) | payer OTHER, SELFPAY | PROVIDERS: PCP Internal Medicine; Visit Provider Internal Medicine | DX: I10 Essential (primary) hypertension (principal); E78.00 Pure hypercholesterolemia, unspecified; R73.01 Impaired fasting glucose; E83.42 Hypomagnesemia; E87.6 Hypokalemia; K29.70 Gastritis, unspecified, without bleeding; R43.8 Other disturbances of smell and taste; E55.9 Vitamin D deficiency, unspecified; M17.0 Bilateral primary osteoarthritis of knee; F41.9 Anxiety disorder, unspecified; F33.9 Major depressive disorder, recurrent, unspecified; E66.9 Obesity, unspecified; Z68.29 Body mass index [BMI] 29.0-29.9, adult; Z79.899 Other long term (current) drug therapy; Z13.31 Encounter for screening for depression; Z13.39 Encounter for screening examination for other mental health and behavioral disorders | CPT/HCPCS: 96127; 99212 ==

== ENCOUNTER 2025-01-11 08:35 | Outpatient (REF) | payer OTHER, SELFPAY ==
[2025-01-11 08:52] LABS: MANUAL DIFF FLAG NO
[2025-01-11 09:08] LABS: Hematocrit 42.7 % (37.0-47.0); Hemoglobin 14.2 g/dl (12.0-16.0); Imm Gran Abs Auto 0.01 X10*3/uL (0.00-0.03); Imm Gran Pct Auto 0.2 % (0.0-0.4); Lymphocytes Absolute Auto 1.8 X10*3/uL (1.2-4.9); Mean Corpuscular HGB Conc 33.3 g/dl (31.0-35.0); Mean Corpuscular Hemoglobin 30.0 pg (27.0-33.0); Mean Corpuscular Volume 90.1 fL (80.0-98.0); NRBC Abs Auto 0.000 X10*3/uL (0.0-0.012); NRBC Pct Auto 0.0 /100WBC (0.0-0.2); Platelet Count 237 X10*3/uL (160-400); Red Blood Count 4.74 X10*6/uL (4.20-5.50); White Blood Count 5.0 X10*3/uL (4.8-10.8)
[2025-01-11 09:21] LABS: Appearance Urine Clear; Glucose Urine UA Negative (Negative); PH 5.0 (5.0-9.0); Specific Gravity - Urine 1.020 (1.005-1.025)
[2025-01-11 09:45] LABS: Alanine Aminotransferase 17 U/L (0-31); Albumin Level 4.8 g/dL (3.5-5.0); Alkaline Phosphatase 101 U/L (39-117); Anion Gap 11 (12-20); Aspartate Amino Transferase 20 U/L (5-31); Blood Urea Nitrogen 17 mg/dL (9-16); Calcium 9.9 mg/dL (8.4-10.2); Carbon Dioxide 28 mmol/L (22-29); Chloride 103 mmol/L (96-108); Cholesterol 172 mg/dL (<200); Estimated Glomerular Filt Rate > 60; HDL Cholesterol 68 mg/dL (>40); Magnesium 1.8 mg/dL (1.6-2.6); Potassium 4.2 mmol/L (3.3-5.1); Sodium 138 mmol/L (135-145); Total Protein 7.7 g/dL (6.5-8.0); Triglycerides 124 mg/dL (<150)
[2025-01-11 10:09] LABS: Folate 10.6 ng/mL (> or = 4.0); Vitamin B12 382 pg/mL (200-900)
== END 2025-01-11 08:36 | disposition home or self-care (01) ==
LOC: HO.LAB 08:35
PROVIDERS: PCP Internal Medicine; Visit Provider Internal Medicine
DX: E53.8 Deficiency of other specified B group vitamins (principal); R73.01 Impaired fasting glucose; R30.0 Dysuria; E83.42 Hypomagnesemia; E78.00 Pure hypercholesterolemia, unspecified; D64.9 Anemia, unspecified
CPT/HCPCS: 36415; 80053; 80061; 81003; 82306; 82607; 82746; 83036; 83735; 84443; 85025

== ENCOUNTER 2025-01-15 10:34 | Outpatient (AMB) | payer OTHER, SELFPAY ==
--- NOTE | 2025-01-15 11:17 | MHC.PC.OV ---
Vital Signs 01/15/25 11:18 01/15/25 11:48 Height 5 ft 1 in Weight 161 lb 2 oz BMI 30.4 BP 140/68 H 118/86 Blood Pressure Location Lt brachial Lt brachial Position Sitting Sitting Pulse 72 Pulse Source Pulse Oximeter Temp 96.8 F Temp Source Temporal Artery Scan Pulse Oximetry (%) 91 L Oxygen Delivery Method Room Air Intake Visit Reasons: 4mth f/u Intake Note: Patient is here to follow up on HTN, Hypercholesterolemia. Toll Test Desk Worker Required: Yes Toll Test Desk Worker Language: Under Water Assistant Name: Meredith (daughter) Information Interpreted: non-clinical & clinical (Pt dceline vb net programmer service prefer daughter to translate) Forestry Crew Chief: Present Accompanied by: Daughter Allergies nitroglycerin (NITROGLYCERIN) Allergy (Severe, Verified 01/15/25 11:38) NAUSEA, NUMBNESS IN MOUTH, burning omeprazole Adverse Reaction (Intermediate, Verified 01/15/25 11:46) persistent metallic taste in mouth Medication List - Last Reconciled 01/15/25 by Jatinder Amado MD atorvastatin 20 mg PO DAILY 90 days cholecalciferol (vitamin D3) 50 mcg PO DAILY 90 days famotidine 20 mg PO BID 30 days fluoxetine 20 mg PO QAM fluticasone propionate 50 mcg/actuation (Flonase Allergy Relief) 2 sprays intranasal DAILY hydrochlorothiazide 12.5 mg PO QAM 90 days lidocaine 5% 1 patch topical DAILY lorazepam 0.5 mg PO BID-TID PRN 30 days losartan 100 mg PO DAILY magnesium oxide 1,200 mg PO BID metoprolol tartrate 50 mg PO BID 90 days mirtazapine 7.5 mg PO BEDTIME 30 days nabumetone 500 mg PO BID PRN 30 days potassium chloride ER (Klor-Con M) 10 mEq PO DAILY tizanidine 4 mg PO TID PRN Tobacco use date assessed: 01/15/25 Fall risk assessment: No Falls in past year Last assessed Fall Risk: 01/15/25 Dental Screening Dental Screen Date: 09/06/24 HPI 4mth f/u HPI Details Patient comes in today for her follow-up visit States that she feels okay She denies any headaches or dizziness Denies any chest pains, no shortness of breath No nausea/vomiting, no abdominal pain; states that she is still experiencing recurrent heartburns often No change in bowel habits noted She had her follow-up labs done a few days ago - to discuss her results [facility] Medical History Vitamin D deficiency Arthralgia Obesity (BMI 30-39.9) Depression Anxiety Primary osteoarthritis of both knees Gastritis Hypomagnesemia Hypokalemia Impaired fasting glucose Pure hypercholesterolemia Benign essential hypertension Surgical History Status post colonoscopy (~07/30/19) History of tubal ligation History of cholecystectomy Family History Father Medical history unknown Mother Colon cancer Social History Housing: Apartment Alcohol intake: current Alcohol intake frequency: holidays/special occasions only Patient Tobacco Use Status: Former Tobacco user e-Cigarette/Vaping Use: Never Used Second Hand Smoke Exposure: Yes service: No Current occupational status: disabled Cognitive needs: No Hearing needs: No Vision needs: Yes Questionnaire PHQ-9 Over the last 2 weeks, how often have you been bothered by any of the following problems? 1. Little interest or pleasure in doing things: not at all 2. Feeling down, depressed, or hopeless: not at all 3. Trouble falling or staying asleep, or sleeping too much: not at all 4. Feeling tired or having little energy: not at all 5. Poor appetite or overeating: not at all 6. Feeling bad about yourself - or that you are a failure or have let yourself or your family down: not at all 7. Trouble concentrating on things, such as reading the newspaper or watching television: not at all 8. Moving or speaking so slowly that other people could have noticed. Or the opposite - being so fidgety or restless that you have been moving around a lot more than usual: not at all 9. Thoughts that you would be better off or of hurting yourself in some way: not at all Total score: 0 Depression Screening Interpretation: Negative Depression Screening Done: Yes 30167 - PHQ-9 Billing: Yes Source: Developed by Drs. Abrahan Bob, Jennifer Mike Guillaume and colleagues, with an educational courtney from [employer]. Thrive Questionnaire Date Thrive assessed: 09/06/24 I am a: Patient What is your living situation today?: I have a steady place to live Within the past 12 months, did the food you bought not last and you didn't have the money to get more?: Never true Within the past 12 months, did you worry whether your food would run out before you got money to buy more?: Never true Do you have trouble paying for medicines?: I choose not to answer this question Do you have trouble getting transportation to medical appointments?: Yes Do you have trouble paying your heating and electricity bill?: No Do you have trouble taking care of your child, family member or friend?: I choose not to answer this question Do you have trouble with day-to-day activities such as bathing, preparing meals, shopping, managing finances, etc.?: I choose not to answer this question Are you currently unemployed and looking for a job?: I choose not to answer this question Are you interested in more education?: I choose not to answer this question Please select the resources that you would like help with: None Currently or been in a relationship where the following occur: No concerns reported THRIVE Score: 1 KEIRA-7 AMB Questionnaire KEIRA-7 Date KEIRA - 7 assessed: 09/06/24 Source: Developed by Drs. Abrahan Bob, Mike Al and colleagues, with an educational courtney from [employer]. Review of Systems Const Denies chills, Denies fatigue, Denies fever(s) and Denies headache(s) ENT Denies dysphagia, Denies dizziness, Denies otalgia, Denies headache(s), Denies mouth lesions, Denies neck pain, Denies odynophagia, Denies sore throat and Denies tongue swelling Card Denies chest pain, Denies palpitations and Denies dyspnea Resp Denies chest congestion, Denies cough and Denies dyspnea GI Denies abdominal pain, Denies constipation, Denies dysphagia, Reports heartburn (recurrent), Denies diarrhea, Denies nausea, Denies odynophagia and Denies vomiting Denies difficulty voiding, Denies nocturia and Denies dysuria Musc Denies back pain and Denies neck pain Skin/Breast Denies rash Neuro Denies dizziness and Denies headache(s) Endo Denies fatigue and Denies palpitations Aller/Immun Denies tongue swelling Physical exam (Primary Care) Vital Signs: Last Vital Signs Temp 96.8 F 01/15/25 11:18 Pulse 72 01/15/25 11:18 BP 140/68 H 01/15/25 11:18 Pulse Ox 91 L 01/15/25 11:18 Oxygen Delivery Method Room Air 01/15/25 11:18 BMI result Body Mass Index 30.4 Tobacco/Smoking Status: Tobacco use Status Tobacco use date assessed 01/15/25 01/15/25 11:20 Patient Tobacco Use Status Former Tobacco user 01/15/25 11:20 e-Cigarette/Vaping Use Never Used 01/15/25 11:20 PHQ-9: PHQ-9 Score PHQ-9: Total score 0 01/15/25 11:20 Depression Screening Interpretation: Negative Thrive Assessment: Date of Thrive Assessment Date Thrive assessed 09/06/24 01/15/25 11:20 Currently or been in a relationship where the following occur: No concerns reported Const General: no acute distress and alert HENMT Ears: TM's normal bilaterally and EAC's normal Throat: Yes posterior oropharynx normal and Yes tonsils normal (no TP congestion) Neck Neck: Yes supple and No lymphadenopathy Thyroid: Thyroid normal Resp Auscultation: clear to auscultation bilaterally, no rales and no wheezes Cardio Rate: regular rate Rhythm: regular rhythm Heart sounds: no murmurs GI Palpation (GI): Soft to palpation and nontender Auscultation: normal bowel sounds General: Yes no CVA tenderness Back/Spine/Pelvis Back: no CVA tenderness Thoracic/Lumbar Spine: No lumbar spinal tenderness Skin Rashes: no rashes Extrem General: Yes no clubbing, cyanosis or edema Right lower extremity: knee Details: tenderness and crepitus; no swelling Left lower extremity: knee Details: tenderness and crepitus; no swelling Results Reviewed Results Reviewed: Laboratory Tests 01/11/25 01/11/25 08:44 08:51 WBC 5.0 Hgb 14.2 Hct 42.7 Plt Count 237 Sodium 138 Potassium 4.2 Creatinine 0.87 Estimated GFR > 60 Fasting Glucose 114 H Hemoglobin A1c % 5.2 Calcium 9.9 Magnesium 1.8 AST 20 ALT 17 Triglycerides 124 Cholesterol 172 LDL Cholesterol, Calc 80 HDL Cholesterol 68 Vitamin B12 382 25-OH Vitamin D Total 42.9 TSH 1.93 Ur Specific [place] 1.020 Urine Protein Negative Urine Glucose (UA) Negative Urine Blood Negative Urine Nitrite Negative Ur Leukocyte Esterase Negative Coding Level of Care Code Est Pt Level 4 (92688) Diagnoses Pure hypercholesterolemia E78.00 Benign essential hypertension I10 Impaired fasting glucose R73.01 Hypomagnesemia E83.42 Hypokalemia E87.6 Gastritis without bleeding, unspecified chronicity, unspecified gastritis type K29.70 Gastritis type: unspecified gastritis Chronicity: unspecified Gastritis bleeding: without bleeding Vitamin D deficiency E55.9 Primary osteoarthritis of both knees M17.0 Anxiety F41.9 Episode of recurrent major depressive disorder, unspecified depression episode severity F33.9 Depression Type: major depressive disorder Major depression recurrence: recurrent Active/Remission status: currently active Major depression episode severity: unspecified Obesity (BMI 30-39.9) E66.9 Additional Codes PHQ-9 - 49713 - PHQ-9 Billing: Yes ([id number]) Assessment & Plan Assessment & Plan (1) Pure hypercholesterolemia: Code(s): E78.00 - Pure hypercholesterolemia, unspecified Category: Medical Plan: Results of her labs done a few days ago reviewed and discussed with patient Reinforced low cholesterol diet Continue Atorvastatin 20 mg QD Will recheck her labs and fasting lipids in 4 months for follow up (2) Benign essential hypertension: Code(s): I10 - Essential (primary) hypertension Category: Medical Plan: Reinforced low sodium diet - goal is systolic BP of at least 130 mm or less Continue Losartan 100 mg QD, Metoprolol 50 mg BID and HCTZ 12.5 mg QD (3) Impaired fasting glucose: Code(s): R73.01 - Impaired fasting glucose Category: Medical Plan: Her HgbA1c remained normal at 5.2% on her recent labs; FBS is still slightly elevated at 114 mg/dl Reinforced low calorie diet/exercise as tolerated Will continue to monitor her FBS and HgbA1c regularly (4) Hypomagnesemia: Code(s): E83.42 - Hypomagnesemia Category: Medical Plan: Corrected Continue Magnesium tablets 1200 mg BID Will continue to monitor her serum magnesium level regularly (5) Hypokalemia: Code(s): E87.6 - Hypokalemia Category: Medical Plan: Corrected - serum potassium level has been normal for a while now; will continue to monitor this regularly (6) Gastritis: Code(s): K29.70 - Gastritis, unspecified, without bleeding Category: Medical Qualifiers: Gastritis type: unspecified gastritis Chronicity: unspecified Gastritis bleeding: without bleeding Qualified Code(s): K29.70 - Gastritis, unspecified, without bleeding Plan: Reinforced dietary restrictions Due to her recurrent heartburns, will start her on Pantoprazole 40 mg QD - she had side effects (persistent metallic taste in mouth) while on Omeprazole Continue Famotidine 20 mg BID PRN (7) Vitamin D deficiency: Code(s): E55.9 - Vitamin D deficiency, unspecified Category: Medical Plan: Continue Vitamin D3 2000 units QD (8) Primary osteoarthritis of both knees: Code(s): M17.0 - Bilateral primary osteoarthritis of knee Category: Medical Plan: Knee x-rays done a couple of years ago revealed (+) OA changes bilaterally Follow up with orthopedics as scheduled (9) Anxiety: Code(s): F41.9 - Anxiety disorder, unspecified Category: Medical Plan: Continue Lorazepam 0.5 mg 2 to 3 times a day as needed for increased anxiety (10) Depression: Code(s): F32.9 - Major depressive disorder, single episode, unspecified Category: Medical Qualifiers: Depression Type: major depressive disorder Major depression recurrence: recurrent Active/Remission status: currently active Major depression episode severity: unspecified Qualified Code(s): F33.9 - Major depressive disorder, recurrent, unspecified Plan: Continue Fluoxetine 20 mg QD and Mirtazapine 7.5 mg Q HS (11) Obesity (BMI 30-39.9): Code(s): E66.9 - Obesity, unspecified Category: Medical Plan: Reinforced diet/exercise as tolerated/lose weight Plan Follow up in 4 months Orders: Orders Complete Blood Count Auto Diff 4 Months D64.9 - Anemia, unspecified Magnesium 4 Months E83.42 - Hypomagnesemia Comprehensive [place]. Panel Fast 4 Months E78.00 - Pure hypercholesterolemia, unspecified Lipid Panel 4 Months E78.00 - Pure hypercholesterolemia, unspecified Hemoglobin A1c 4 Months R73.01 - Impaired fasting glucose UA CC w/rflx Micro + Cult 4 Months R30.0 - Dysuria TSH reflex Free T4 4 Months E78.00 - Pure hypercholesterolemia, unspecified Vitamin D 25-OH Total 4 Months E55.9 - Vitamin D deficiency, unspecified Medications: New pantoprazole 40 mg PO DAILY 90 tabs 1RF 90 days
[2025-01-15 11:18] VITALS: BP 140/68; PULSE 72; TEMP 36; O2SAT 91; BMI 30.4
[2025-01-15 11:48] VITALS: BP 118/86
== END 2025-01-15 11:51 | disposition home or self-care (01) ==
LOC: HO.HMCH 10:35
PROVIDERS: PCP Internal Medicine; Visit Provider Internal Medicine
DX: E78.00 Pure hypercholesterolemia, unspecified (principal); I10 Essential (primary) hypertension; E66.9 Obesity, unspecified; Z68.30 Body mass index [BMI] 30.0-30.9, adult; R73.01 Impaired fasting glucose; E83.42 Hypomagnesemia; E87.6 Hypokalemia; K29.70 Gastritis, unspecified, without bleeding; E55.9 Vitamin D deficiency, unspecified; M17.0 Bilateral primary osteoarthritis of knee; F41.9 Anxiety disorder, unspecified; F33.9 Major depressive disorder, recurrent, unspecified

== ENCOUNTER → 2025-01-15 10:34 | Outpatient (BNVA) | payer OTHER, SELFPAY | PROVIDERS: PCP Internal Medicine; Visit Provider Internal Medicine | DX: I10 Essential (primary) hypertension (principal); E78.00 Pure hypercholesterolemia, unspecified; R73.01 Impaired fasting glucose; E83.42 Hypomagnesemia; E87.6 Hypokalemia; K29.70 Gastritis, unspecified, without bleeding; M17.0 Bilateral primary osteoarthritis of knee; F41.9 Anxiety disorder, unspecified; F33.9 Major depressive disorder, recurrent, unspecified; E66.9 Obesity, unspecified; Z68.30 Body mass index [BMI] 30.0-30.9, adult | CPT/HCPCS: 96127; 99212 ==